=== PATIENT | female | born 1935 | race Caucasian/White ===

== ENCOUNTER → 2017-09-29 | Outpatient (CLI) | payer OTHER, MEDICARE ==
[~2017-09-29] MED LIST: ASCA500 PO; ASPI81TA28 PO; ATOR10TA82 PO; BIOT1TAB6 PO; CHOLTAB9 PO; CYAN500T PO
== END | disposition home or self-care (01) ==
LOC: C.PAPS 14:45
PROVIDERS: ATTEND Obstetrics & Gynecology
DX: Z01.419 Encounter for gynecological examination (general) (routine) without abnormal findings (principal)

== ENCOUNTER → 2017-12-25 | Outpatient (CLI) | payer OTHER, MEDICARE ==
[2017-12-25 13:34] LABS: BASO % 0.4 %; BASO ABS # 0.03 K/uL (0-0.2); EOS % 2.9 %; EOS ABS # 0.23 K/uL (0-0.5); HEMATOCRIT 40.3 % (37-47); HEMOGLOBIN 13.5 g/dL (12.0-16.0); IG# 0.02 K/uL (0.00-0.02); LYMPH % 20.2 %; LYMPH ABS # 1.61 K/uL (1.2-3.4); MEAN CELL VOLUME 91.6 fL (80-100); MEAN CORPUSCULAR HEMOGLOBIN 30.7 pg (25-34); MEAN CORPUSCULAR HGB CONC 33.5 g/dl (32-36); MEAN PLATELET VOLUME 9.8 fL (7.4-10.4); MONO % 8.2 %; MONO ABS # 0.65 K/uL (0.11-0.59); NEUT ABS # 5.43 K/uL (1.4-6.5); PLATELET COUNT 255 K/uL (130-400); RED CELL DISTRIBUTION WIDTH CV 13.4 % (11.5-14.5); WHITE BLOOD COUNT 7.97 K/uL (4.8-10.8)
[2017-12-25 14:08] LABS: ALT/SGPT 25 U/L (12-78); BLOOD UREA NITROGEN 16 mg/dl (7-18); CALCIUM 9.2 mg/dl (8.5-10.1); CARBON DIOXIDE 32 mmol/L (21-32); CREATININE 0.85 mg/dl (0.60-1.20); GLUCOSE 95 mg/dl (70-99); SODIUM 137 mmol/L (136-145)
[2017-12-25 14:10] LABS: ALKALINE PHOSPHATASE 73 U/L (45-117); AST/SGOT 21 U/L (15-37); TOTAL PROTEIN 7.3 gm/dl (6.4-8.2)
[2017-12-29 13:56] LABS: ANA SCREEN TC 249X POSITIVE (NEGATIVE)
[2017-12-29 14:29] LABS: ANA TITER 1:40 TITER (<1:40)
== END | disposition home or self-care (01) ==
LOC: C.LABBC 11:53
PROVIDERS: ATTEND Physician Assistant
DX: G24.8 Other dystonia (principal)

== ENCOUNTER → 2017-12-26 | Outpatient (CLI) | payer OTHER, MEDICARE ==
[~2017-12-26] MED LIST changes: +GADAVIST IV PRN
--- NOTE | 2017-12-26 11:34 | DIAGNOSTIC IMAGING REPORT ---
MRI OF THE BRAIN COMBO CLINICAL HISTORY: Limb dystonia. COMPARISON STUDY: CT of the brain dated 06/16/2015. MRI of the brain dated 06/18/2014. TECHNIQUE: MRI of the brain was performed utilizing various T1 and T2-weighted sequences in the axial, sagittal, and coronal planes. Contrast-enhanced sequences were acquired following the administration of 5.5 cc of Gadavist. FINDINGS: Brain parenchyma: There are age-related involutional changes noting minimal periventricular microangiopathic disease. There is no hemorrhage or mass effect. There is no restricted diffusion to suggest acute ischemia. No enhancing mass lesion is identified on the postcontrast images. Feldman-white matter differentiation is preserved. No extra-axial fluid collection is seen. The cerebellar tonsils are normal in configuration. Ventricles, sulci, and cisterns: Prominent secondary to involutional change. Pituitary and sella: Unremarkable. Intracranial vasculature: Normal flow voids are maintained at the skull base. Orbits: The bony orbits are grossly intact. Orbital contents are normal in appearance. Sinuses and mastoids: Findings suggest previous. Nasal sinus surgery. The paranasal sinuses and mastoid air cells are clear. Calvarium: Unremarkable. Cervical cord: Partially visualized cervical spinal cord is normal in morphology and signal intensity. IMPRESSION: No acute intracranial abnormality. Electronically signed by: Edil Tamez M.D. 12/26/2017 11:33 AM Dictated Date/Time: 12/26/2017 11:19 AM
--- NOTE | 2017-12-26 12:19 | DIAGNOSTIC IMAGING REPORT ---
MRI OF THE CERVICAL SPINE COMBO CLINICAL HISTORY: Limb dystonia. COMPARISON STUDY: Chest CT dated 06/13/2013. TECHNIQUE: MRI of the cervical spine is performed utilizing various T1 and T2-weighted sequences in the axial and sagittal planes. Contrast-enhanced sequences are acquired following the IV administration of 5.5 cc of Gadavist. The examination is compromised by motion artifact. FINDINGS: Cervical spine: Vertebral body height and alignment are maintained throughout the cervical spine. Minimal anterolisthesis is noted at T2-T3. There is straightening of the cervical lordosis. Marrow signal intensity is heterogeneous. The atlantodental articulation is maintained. The spinous processes appear intact. Anterior osteophytes are seen throughout. No destructive osseous lesion is identified. Intervertebral discs: Degenerative disc desiccation is seen throughout the cervical spine. Moderate disc space narrowing is seen at all levels between C3-C4 and C7-T1. Spinal cord: The cervical spinal cord is normal in morphology and signal intensity. No abnormal enhancement is identified on the postcontrast sequences. C2-C3: Unremarkable. C3-C4: A posterior disc osteophyte complex effaces the ventral cord. Uncovertebral and facet arthropathy cause severe right and moderate to severe left neural foraminal stenosis. C4-C5: A posterior disc osteophyte complex abuts the ventral cord. Predominant facet arthropathy causes moderate left neural foraminal stenosis. C5-C6: A posterior disc osteophyte complex eccentric to the right effaces the ventral cord. Uncovertebral and facet arthropathy cause severe right and [id number] left neural foraminal stenosis. The minimum AP canal diameter at this level measures 6 mm. C6-C7: A posterior disc osteophyte complex abuts the ventral cord. Predominantly uncovertebral arthropathy causes mild to moderate right and mild left neural foraminal stenosis. A small nerve sheath cyst on the right measures up to 5 mm. C7-T1: Unremarkable. A small right-sided nerve sheath cyst measures up to 6 mm. Soft tissues: The prevertebral and paraspinous soft tissues are normal in appearance. A 2.2 cm T2 hyperintense nonenhancing nodule is identified in the left thyroid lobe. This was also seen on the [address] Brain parenchyma: The visualized brain parenchyma at the skull base is normal in appearance. IMPRESSION: 1. Multilevel cervical spondylosis as detailed above. See discussion for level by level analysis. 2. The cervical spinal cord is normal in morphology and signal intensity. No abnormal postcontrast enhancement is seen. 3. No destructive bony process is identified. 4. Additional findings as above. Dictated: 12/26/2017 11:45 AM Transcribed: 12/26/2017 12:19 PM [facility] Electronically signed by: Edil Tamez M.D. 12/26/2017 12:31 PM Dictated Date/Time: 12/26/2017 11:45 AM
== END | disposition home or self-care (01) ==
LOC: C.MRIBC 09:51
PROVIDERS: ATTEND Physician Assistant
DX: G24.8 Other dystonia (principal)

== ENCOUNTER 2021-12-11 13:18 | Observation (INO) ==
[2021-12-11 13:50] LABS: Basophils # (auto) 0.04 K/uL (0-0.2); Basophils % (auto) 0.6 %; Eosinophils # (auto) 0.62 K/uL (0-0.5); Eosinophils % (auto) 8.7 %; Hematocrit (blood only) 37.2 % (37-47); Hemoglobin 12.1 g/dL (12.0-16.0); Immature Granulocytes # (auto) 0.02 K/uL (0.00-0.02); Immature Granulocytes % (auto) 0.3 %; Lymphocytes # (auto) 1.79 K/uL (1.2-3.4); Lymphocytes % (auto) 25.2 %; Mean Corpuscular Hemoglobin 30.3 pg (25-34); Mean Corpuscular Hgb Conc 32.5 g/dL (32-36); Mean Platelet Volume 9.9 fL (7.4-10.4); Monocytes # (auto) 0.88 K/uL (0.11-0.59); Monocytes % (auto) 12.4 %; Neutrophils # (auto) 3.76 K/uL (1.4-6.5); Neutrophils % (auto) 52.8 %; Platelet Count 232 K/uL (130-400); RDW Coefficient of Variation 13.7 % (11.5-14.5); RDW Standard Deviation 46.9 fL (36.4-46.3); White Blood Count 7.11 K/uL (4.8-10.8)
[2021-12-11 14:11] LABS: Troponin I < 0.03 ng/ml (0-0.04)
[2021-12-11 14:28] LABS: Alanine Aminotransferase 12 U/L (7-52); Albumin Globulin Ratio 1.7 (0.9-2); Alkaline Phosphatase 49 U/L (34-104); Anion Gap 6 (3-11); Aspartate Aminotransferase 19 U/L (13-39); BUN Creatinine Ratio 17.2 (10-20); Bilirubin,Total 0.7 mg/dl (0.2-1.0); Blood Urea Nitrogen 17 mg/dl (6-23); Calcium 9.3 mg/dl (8.5-10.1); Carbon Dioxide 28 mmol/L (21-32); Chloride 103 mmol/L (98-107); Creatinine Clr Calc Pharmacy 32.5 ml/min; Est GFR (Non-African American) 50.9 ml/min; Globulin 2.4 gm/dl (2.5-4.0); Glucose 69 mg/dl (70-99(Fasting)); Lipase 30 U/L (11-82); Sodium 137 mmol/L (136-145); Total Protein 6.4 gm/dl (6.0-8.3)
--- NOTE | 2021-12-11 15:24 | XRay Report ---
XR chest 1V portable CLINICAL HISTORY: Atypical chest pain TECHNIQUE: Single frontal radiograph of the chest was obtained. Comparison: Comparison is made to chest one view 07/03/2020 FINDINGS: No lines and tubes are seen. The cardiomediastinal silhouette is normal. The lungs are clear. Bluntin g of the left costophrenic angle which may reflect small pleural effusion. IMPRESSION: Left trace effusion. ACT 112: Negative or not required by law. Electronically signed by: Onur Watson M.D. 12/11/2021 3:22 PM
--- NOTE | 2021-12-11 16:11 | Emergency Department Note ---
Impression & Plan Precordial chest pain, Left arm pain, Exertional chest pain ED Provider Note NAME: ASHLEY RAMIREZ AGE: 86 SEX: F : 1935 ARRIVES VIA: Walk-In INFORMANT: [Patient] ED PROVIDER(S): [Edil Montano MD] CHIEF COMPLAINT: Cardiac assessment HISTORY OF PRESENT ILLNESS: The patient is an 86-year-old female presents to the ED with around 6 hours of some chest and arm pain. She has been under some increased stress and doing more activity. She was up walking around and working when she developed the pain. The pain was pressure-like across the chest and moderate in severity. She noted the pain in her left arm and forearm as well. She was nauseated, no sweating, no shortness of breath. Things seemed to get better eventually with rest. She currently is asymptomatic. The patient has had CVAs, she has hypertension. She has never had a diagnosis of coronary disease. Of note, the patient ran out of her Losartan 4 days ago, she has missed this medication for 4 days. The patient is here with her daughter. She feels that she may just be anxious. 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 REVIEW OF SYSTEMS: See HPI for pertinent positives and negatives. A total of ten systems were reviewed and were otherwise negative. PMHx/PSHx: See Below SOCIAL HISTORY: See Below. PHYSICAL EXAM: GENERAL: Patient is in no acute distress. HEENT: No acute trauma, normocephalic atraumatic, mucous membranes moist, no nasal congestion, no scleral icterus. NECK: No stridor, no adenopathy, no meningismus, trachea is midline. LUNGS: Clear to auscultation bilaterally, no wheeze, no rhonchi, breath sounds equal. HEART: Without murmurs gallops or rubs, regular rate and rhythm. ABDOMEN: Soft, nontender, bowel sounds positive, no hernias, no peritonitis. EXTREMITIES: No cyanosis or edema, full range of motion of all the joints without pain or difficulty, no signs for acute trauma. NEUROLOGIC: Oriented x 3, no acute motor or sensory deficits, no focal weakness. SKIN: No rash, no jaundice, no diaphoresis. DIFFERENTIAL DIAGNOSIS: Cardiac ischemia, aortic dissection, pulmonary embolism, pneumothorax, pneumonia, pericarditis, myocarditis, esophageal rupture, GERD, cholecystitis, pancreatitis, musculoskeletal, as well as other pathologies. EMERGENCY DEPARTMENT COURSE/PROCEDURES: ECG: Indication was chest pain. ECG shows a normal sinus rhythm with a potential old anterior infarct. There is no ST elevation, no PVCs. The QTc is 454. Continuous Cardiac Monitoring: An order was placed for continuous cardiac monitoring. The monitor shows a rate of 67 with normal sinus rhythm. MEDICAL DECISION MAKING: There is no leukocytosis or worrisome anemia. There is a normal platelet count. No significant electrolyte abnormality or kidney failure. No concerning liver enzyme elevation. No evidence for pancreatitis. ECG shows a normal sinus rhythm, no ST elevation. Cardiac enzyme testing x1 is not consistent with acute cardiac injury. Chest x-ray does not show mediastinal widening, pneumonia or pneumothorax. Covid testing returned negative. Patient presents with exertional chest pain. Her pain is no longer present since resting. The patient was given 4 baby aspirin orally, I did speak with her about her findings, I spoke with case management. I did speak with on-call cardiology, Dr. Blanco. The patient is being hospitalized for further cardiac work-up. The on-call hospitalist was consulted. Past Med/Surg History Medical History Asthma Factor V Leiden, prothrombin gene mutation High blood pressure Hyperlipidemia TIA (transient ischemic attack) Surgical History Hx of cholecystectomy S/P appy S/P cataract extraction S/P spinal surgery Family History Brother Lung cancer Father Lung cancer Sister Pancreatic cancer Social History Smoking Status: Never smoker Hx Alcohol Use: Yes Alcohol type: wine Alcohol Intake Frequency: Monthly or Less Hx Substance Use: No Preferred Language: Azerbaijani Feels Safe at Home: Yes Allergies Allergies Allergy/AdvReac Type Severity Reaction Status Date / Time morphine Allergy Severe STOPS Verified 12/11/21 16:42 BREATHING moxifloxacin Allergy Intermediate CONFUSION/NIGHT Verified 12/11/21 16:42 CRANE bacitracin Allergy Mild Rash Verified 12/11/21 16:42 polymyxin B Allergy Mild Rash Verified 12/11/21 16:42 tramadol Allergy Unknown CAN'T Verified 12/11/21 16:42 REMEMBER fluorouracil AdvReac Intermediate didn't Verified 12/11/21 16:42 feel good CHIRAG CREAM AdvReac Severe WENT Uncoded 12/11/21 16:42 BALISTIC Home Meds Home Medications Medication Instructions Recorded Confirmed ascorbic acid (vitamin C) 500 mg 500 mg PO DAILY 10/08/18 12/11/21 tablet (Vitamin C) atorvastatin 10 mg tablet 10 mg PO DAILY 10/08/18 12/11/21 biotin 5 mg tablet 2.5 mg PO DAILY 10/08/18 12/11/21 cholecalciferol (vitamin D3) 25 1,000 mg PO DAILY 10/08/18 12/11/21 mcg (1,000 unit) tablet (Vitamin D3) cyanocobalamin (vitamin B-12) 500 500 mcg PO DAILY 10/08/18 12/11/21 mcg tablet (Vitamin B-12) losartan 50 mg-hydrochlorothiazide 0.5 tab PO DAILY 10/08/18 12/11/21 12.5 mg tablet atenolol 25 mg tablet 12.5 mg PO DAILY 07/03/20 12/11/21 aspirin 81 mg tablet,delayed 81 mg PO DAILY 12/11/21 12/11/21 release conjugated estrogens 0.625 mg/gram 0.625 mg VAGINAL DIRECTED 12/11/21 12/11/21 vaginal cream (Premarin) diclofenac sodium 1 % topical gel 2 g TOPICAL DIRECTED PRN 12/11/21 12/11/21 triamcinolone acetonide 0.1 % 1 applic TOPICAL DIRECTED PRN 12/11/21 12/11/21 topical ointment Results & Data (ED) Vital Signs Vital Signs - 24 hr 12/11/21 13:19 12/11/21 18:19 Temperature 36.4 C L Temperature Source Temporal Artery Scan Pulse Rate 67 56 L Pulse Rate [Apical] 54 L Respiratory Rate 18 16 Blood Pressure 162/80 H Blood Pressure [Right Arm] 148/85 H Blood Pressure Mean 107 Blood Pressure Mean [Right Arm] 106 Pulse Oximetry 98 98 Oxygen Delivery Method Room Air Sepsis Recent Fever Within 48 Hours No Sepsis New/Unexplained Change in Mental Status No Sepsis Action Taken by Nursing No Action Required Home Medications Current Medication List: was personally reviewed by me Laboratory Data Attestation: I reviewed the patient's lab results. Result diagrams: 12/11/21 13:34 12/11/21 13:34 Lab Results 12/11/21 12/11/21 12/11/21 Range/Units 13:34 13:34 16:52 WBC 7.11 (4.8-10.8) K/uL RBC 4.00 L (4.2-5.4) M/uL Hgb 12.1 (12.0-16.0) g/dL Hct 37.2 (37-47) % MCV 93.0 (80-100) fL MCH 30.3 (25-34) pg MCHC 32.5 (32-36) g/dL RDW Std Deviation 46.9 H (36.4-46.3) fL RDW Coeff of [place] 13.7 (11.5-14.5) % Plt Count 232 (130-400) K/uL MPV 9.9 (7.4-10.4) fL Immature Gran % (Auto) 0.3 % Neut % (Auto) 52.8 % Lymph % (Auto) 25.2 % [place] % (Auto) 12.4 % Eos % (Auto) 8.7 % Baso % (Auto) 0.6 % Neut # (Auto) 3.76 (1.4-6.5) K/uL Lymph # (Auto) 1.79 (1.2-3.4) K/uL [place] # (Auto) 0.88 H (0.11-0.59) K/uL Eos # (Auto) 0.62 H (0-0.5) K/uL Baso # (Auto) 0.04 (0-0.2) K/uL Immature Gran # (Auto) 0.02 (0.00-0.02) K/uL Sodium 137 (136-145) mmol/L Potassium 4.0 (3.5-5.1) mmol/L Chloride 103 (98-107) mmol/L Carbon Dioxide 28 (21-32) mmol/L Anion Gap 6 (3-11) BUN 17 (6-23) mg/dl Creatinine 0.99 (0.6-1.2) mg/dl Est Cr Clr Drug Dosing 32.5 ml/min Est GFR ( Amer) 59.0 ml/min Est GFR (Non-Af Amer) 50.9 ml/min BUN/Creatinine Ratio 17.2 (10-20) Glucose 69 L (70-99(Fasting)) mg/dl Calcium 9.3 (8.5-10.1) mg/dl Total Bilirubin 0.7 (0.2-1.0) mg/dl AST 19 (13-39) U/L ALT 12 (7-52) U/L Alkaline Phosphatase 49 (34-104) U/L Troponin I < 0.03 (0-0.04) ng/ml Total Protein 6.4 (6.0-8.3) gm/dl Albumin 4.0 (3.4-5.0) gm/dl Globulin 2.4 L (2.5-4.0) gm/dl Albumin/Globulin Ratio 1.7 (0.9-2) Lipase 30 (11-82) U/L SARS-CoV-2, RNA, NAAT NEGATIVE (NEGATIVE) Administered Medications Discontinued Medications Aspirin (Aspirin Chew 324 Mg) 324 mg PO NOW STA Stop: 12/11/21 16:21 Last Admin: 12/11/21 17:48 Dose: 324 mg Documented by: [id number] Imaging Data Radiologist's Impression: Chest X-Ray 12/11/21 13:31 XR chest 1V portable CLINICAL HISTORY: Atypical chest pain TECHNIQUE: Single frontal radiograph of the chest was obtained. Comparison: Comparison is made to chest one view 07/03/2020 FINDINGS: No lines and tubes are seen. The cardiomediastinal silhouette is normal. The lungs are clear. Blunting of the left costophrenic angle which may reflect small pleural effusion. IMPRESSION: Left trace effusion. ACT 112: Negative or not required by law. Electronically signed by: Onur Watson M.D. 12/11/2021 3:22 PM Discharge Plan Visit Data Chief Complaint: Cardiac Assessment Stated Complaint: L SIDED CHEST PAIN, ARM PAIN ED Provider: Edil Montano Discharge Problem: Precordial chest pain, Left arm pain, Exertional chest pain Patient Disposition: Admitted As Inpatient Condition: Good Forms Stand Alone Forms: My [facility] [employer] Prescriptions Prescriptions: No Action atorvastatin 10 mg tablet 10 mg PO DAILY RF: 0 cyanocobalamin (vitamin B-12) [Vitamin B-12] 500 mcg Tablet 500 mcg PO DAILY RF: 0 ascorbic acid (vitamin C) [Vitamin C] 500 mg Tablet 500 mg PO DAILY RF: 0 losartan-hydrochlorothiazide 50-12.5 mg tablet 0.5 tab PO DAILY RF: 0 cholecalciferol (vitamin D3) [Vitamin D3] 1,000 unit Tablet 1,000 mg PO DAILY RF: 0 biotin 5 mg Tablet 2.5 mg PO DAILY RF: 0 atenolol 25 mg Tablet 12.5 mg PO DAILY RF: 0 aspirin 81 mg Tablet,Delayed Release (Dr/Ec) 81 mg PO DAILY RF: 0 Premarin 0.625 mg/gram cream 0.625 mg vaginal DIRECTED RF: 0 triamcinolone acetonide 0.1 % ointment 1 applic TOPICAL DIRECTED PRN (Reason: Skin Irritation) RF: 0 diclofenac sodium [Voltaren] 1 % Gel 2 g TOPICAL DIRECTED PRN (Reason: Pain) RF: 0 Referrals Referrals: Gucci Benjamin MD [Primary Care Provider] -
--- NOTE | 2021-12-11 16:14 | Electrocardiogram Report ---
Test Reason : Blood Pressure : / mmHG Vent. Rate : 071 BPM Atrial Rate : 071 BPM P-R Int : 162 ms QRS Dur : 084 ms QT Int : 418 ms P-R-T Axes : 060 011 033 degrees QTc Int : 454 ms Poor data quality, interpretation may be adversely affected Normal sinus rhythm When compared with ECG of 03-JUL-2020 12:30, No significant change was found Confirmed by Landen Partida ([id number]) on 12/11/2021 4:13:59 PM Referred By: Confirmed By:Saúl Partida
[2021-12-11] MEDS ORDERED: ASPIRIN CHEW 324 MG PO STA (16:20)
--- NOTE | 2021-12-11 16:46 | History & Physical Report ---
Date of Service December 11, 2021 Assessment & Plan (1) Atypical chest pain: Plan: Elderly female with no h/o CAD. CAD risk factors include age, HTN and hyperlipidemia. Min to no pain currently. Trop is negative and EKG nonischemic. Trend trop overnight. Cardiology consult. Trend EKG in am. (2) High blood pressure: Plan: Missed morning dose of antihypertensive. Giving this now and cont home regimen. (3) Hyperlipidemia: Plan: chronic, cont atorvastatin per home regimen. Lipid panel in am. (4) Factor V Leiden, prothrombin gene mutation: Plan: No h/o blood clot. Takes ASA 81mg daily. (5) DVT prophylaxis: Plan: Heparin Full Dispo-to telemetry. Arabella Jordan DO [facility] Hospitalist History of Present Illness Chief Complaint: chest pain Primary Care Provider: Gucci Benjamin MD The patient is an 86-year-old female who presents to the ER with chest pain in her left anterior chest radiating to her arm associated with shortness of breath. She was up and walking around when she developed the pain this morning. She described that it felt like a lightening bolt. 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 This is a very stressful transaction and she is reporting being under a lot of stress. She reports never getting pain in her chest and has no history of cardiac disease. She does have a history of TIA in the past and hyperlipidemia. She is a lifelong non-smoker. After resting in the ER her chest pain resolved and is currently "somewhat still there." Daughter reports mom just did not look well this morning prompting ER visit. Allergies Allergy/AdvReac Type Severity Reaction Status Date / Time morphine Allergy Severe STOPS Verified 12/11/21 16:42 BREATHING moxifloxacin Allergy Intermediate CONFUSION/NIGHT Verified 12/11/21 16:42 CRANE bacitracin Allergy Mild Rash Verified 12/11/21 16:42 polymyxin B Allergy Mild Rash Verified 12/11/21 16:42 tramadol Allergy Unknown CAN'T Verified 12/11/21 16:42 REMEMBER fluorouracil AdvReac Intermediate didn't Verified 12/11/21 16:42 feel good CHIRAG CREAM AdvReac Severe WENT Uncoded 12/11/21 16:42 BALISTIC Home Medications Medication Instructions Recorded Confirmed Type ascorbic acid (vitamin C) 500 mg 500 mg PO DAILY 10/08/18 12/11/21 History tablet (Vitamin C) atorvastatin 10 mg tablet 10 mg PO DAILY 10/08/18 12/11/21 History biotin 5 mg tablet 2.5 mg PO DAILY 10/08/18 12/11/21 History cholecalciferol (vitamin D3) 25 1,000 mg PO DAILY 10/08/18 12/11/21 History mcg (1,000 unit) tablet (Vitamin D3) cyanocobalamin (vitamin B-12) 500 500 mcg PO DAILY 10/08/18 12/11/21 History mcg tablet (Vitamin B-12) losartan 50 mg-hydrochlorothiazide 0.5 tab PO DAILY 10/08/18 12/11/21 History 12.5 mg tablet atenolol 25 mg tablet 12.5 mg PO DAILY 07/03/20 12/11/21 History aspirin 81 mg tablet,delayed 81 mg PO DAILY 12/11/21 12/11/21 History release conjugated estrogens 0.625 mg/gram 0.625 mg VAGINAL DIRECTED 12/11/21 12/11/21 History vaginal cream (Premarin) diclofenac sodium 1 % topical gel 2 g TOPICAL DIRECTED PRN 12/11/21 12/11/21 History triamcinolone acetonide 0.1 % 1 applic TOPICAL DIRECTED PRN 12/11/21 12/11/21 History topical ointment Past Med/Surg History Medical History (Updated 12/11/21 @ 17:55 by Arabella Jordan DO) Asthma Factor V Leiden, prothrombin gene mutation High blood pressure Hyperlipidemia TIA (transient ischemic attack) Surgical History Hx of cholecystectomy S/P appy S/P cataract extraction S/P spinal surgery Family History Brother Lung cancer Father Lung cancer Sister Pancreatic cancer Social History Smoking Status: Never smoker Hx Alcohol Use: Yes Alcohol type: wine Alcohol Intake Frequency: Monthly or Less Hx Substance Use: No Preferred Language: Divehi Feels Safe at Home: Yes Review of Systems Review of Systems: All systems were reviewed and negative except as indicated above. Physical Exam Physical Exam: CONSTITUTIONAL: WNWD, vitals as above, generally well- appearing EYES: normal conjunctivae, no scleral icterus ENT: external ear and nose normal, MMM NECK: trachea midline RESPIRATORY: clear to auscultation bilaterally, no crackles, rales or wheezes, normal respiratory effort CARDIOVASCULAR: regular rate and rhythm, S1 and 2 heard without murmurs, gallops or rubs, no JVD, no peripheral edema CHEST: inspection of chest was normal GASTROINTESTINAL: soft, nontender, ND MUSCULOSKELETAL: strength 5/5 throughout, head is normocephalic and atraumatic SKIN: warm and dry NEUROLOGIC: CN 2-12 grossly intact, no sensory deficit, normal cognition, normal speech, no tremor, no gross focal deficits. PSYCHIATRIC: alert cooperative and oriented to person, place and time. Results & Data Results & Data ([facility]) Vital Signs (Past 12 Hours) Vital Signs Temp Pulse Resp BP Pulse Ox 12/11/21 13:19 36.4 C L 67 18 162/80 H 98 Laboratory Results Short CBC 12/11/21 Range/Units 13:34 WBC 7.11 (4.8-10.8) K/uL Hgb 12.1 (12.0-16.0) g/dL Hct 37.2 (37-47) % Plt Count 232 (130-400) K/uL BMP 12/11/21 13:34 Sodium 137 Potassium 4.0 Chloride 103 Carbon Dioxide 28 BUN 17 Creatinine 0.99 Glucose 69 L Calcium 9.3 Cardiac Enzymes 12/11/21 Range/Units 13:34 Troponin I < 0.03 (0-0.04) ng/ml Liver Function 12/11/21 Range/Units 13:34 Total Bilirubin 0.7 (0.2-1.0) mg/dl AST 19 (13-39) U/L ALT 12 (7-52) U/L Alkaline Phosphatase 49 (34-104) U/L Albumin 4.0 (3.4-5.0) gm/dl Diagnostic Findings Chest X-Ray 12/11/21 13:31 XR chest 1V portable CLINICAL HISTORY: Atypical chest pain TECHNIQUE: Single frontal radiograph of the chest was obtained. Comparison: Comparison is made to chest one view 07/03/2020 FINDINGS: No lines and tubes are seen. The cardiomediastinal silhouette is normal. The lungs are clear. Blunting of the left costophrenic angle which may reflect small pleural effusion. IMPRESSION: Left trace effusion. ACT 112: Negative or not required by law. Electronically signed by: Onur Watson M.D. 12/11/2021 3:22 PM Medications Administered ASA 324mg Code Status & VTE Plan VTE Prophylaxis Plan VTE Prophylaxis will be ordered: Yes
[2021-12-11] MEDS ORDERED: ACETAMINOPHEN 325 MG TAB PO PRN (21:29)
[2021-12-11] MEDS ORDERED: POLYETHYLENE (MIRALAX) 17 GM PACK PO PRN (21:29)
[2021-12-11] MEDS ORDERED: NITROGLYCERIN SL 0.4 MG/TAB TAB SL PRN (21:29)
[2021-12-11] MEDS: LOSARTAN/HCTZ 50/12.5MG TAB PO SCH (22:11)
[2021-12-11] MEDS: HEPARIN SOD 5,000 UNIT/0.5 ML VIAL SQ SCH (22:11)
[2021-12-12 06:41] LABS: Basophils # (auto) 0.04 K/uL (0-0.2); Basophils % (auto) 0.8 %; Eosinophils # (auto) 0.63 K/uL (0-0.5); Eosinophils % (auto) 12.9 %; Hematocrit (blood only) 37.3 % (37-47); Hemoglobin 12.5 g/dL (12.0-16.0); Lymphocytes % (auto) 32.7 %; Mean Corpuscular Hemoglobin 30.9 pg (25-34); Mean Corpuscular Hgb Conc 33.5 g/dL (32-36); Mean Corpuscular Volume 92.1 fL (80-100); Mean Platelet Volume 9.7 fL (7.4-10.4); Monocytes # (auto) 0.56 K/uL (0.11-0.59); Monocytes % (auto) 11.4 %; Neutrophils # (auto) 2.07 K/uL (1.4-6.5); Neutrophils % (auto) 42.2 %; Platelet Count 223 K/uL (130-400); RDW Coefficient of Variation 13.6 % (11.5-14.5); Red Blood Count 4.05 M/uL (4.2-5.4)
[2021-12-12 07:06] LABS: Troponin I < 0.03 ng/ml (0-0.04)
[2021-12-12 07:13] LABS: Anion Gap 6 (3-11); BUN Creatinine Ratio 17.4 (10-20); Blood Urea Nitrogen 15 mg/dl (6-23); Carbon Dioxide 27 mmol/L (21-32); Chloride 105 mmol/L (98-107); Chol HDL Ratio 2.3 (0-5); Cholesterol 162 mg/dl (0-200); Creatinine Clr Calc Pharmacy 37.4 ml/min; Est GFR (African American) 69.9 ml/min; Est GFR (Non-African American) 60.3 ml/min; Glucose 94 mg/dl (70-99(Fasting)); HDL Cholesterol 72 mg/dl; LDL Cholesterol Calculated 74 mg/dl; Potassium 3.8 mmol/L (3.5-5.1); Sodium 138 mmol/L (136-145); Triglycerides 79 mg/dl (0-150); VLDL Cholesterol 16 mg/dl (0-30)
[2021-12-12] MEDS: HEPARIN SOD 5,000 UNIT/0.5 ML VIAL SQ SCH (07:21)
[2021-12-12] MEDS: LOSARTAN/HCTZ 50/12.5MG TAB PO SCH (07:21)
[2021-12-12] MEDS ORDERED: CYANOCOBALAMIN (B-12) 500 MCG TABLET PO SCH (09:00)
[2021-12-12] MEDS ORDERED: ATORVASTATIN 10 MG TAB PO SCH (09:00)
[2021-12-12] MEDS ORDERED: ASPIRIN 81 MG ECTAB PO SCH (09:00)
[2021-12-12] MEDS ORDERED: ASCORBIC ACID 500 MG TAB PO SCH (09:00)
[2021-12-12] MEDS ORDERED: CHOLECALCIFEROL 1,000 UNITS 25 MCG TAB PO SCH (09:00)
[2021-12-12] MEDS ORDERED: ATENOLOL 25 MG TABLET PO SCH (09:00)
[2021-12-12 09:59] LABS: D Dimer 800 ug/L FEU (0-500)
[2021-12-12] MEDS ORDERED: OPTIRAY 320 125ml IV ONE (12:13)
--- NOTE | 2021-12-12 13:36 | Electrocardiogram Report ---
Test Reason : Blood Pressure : / mmHG Vent. Rate : 057 BPM Atrial Rate : 057 BPM P-R Int : 182 ms QRS Dur : 092 ms QT Int : 436 ms P-R-T Axes : 063 003 042 degrees QTc Int : 424 ms Sinus bradycardia Otherwise normal ECG When compared with ECG of 11-DEC-2021 13:27, T wave inversion no longer evident in Anterior leads Confirmed by Landen Partida ([id number]) on 12/12/2021 1:35:52 PM Referred By: REFERRED SELF Confirmed By:Saúl Partida
--- NOTE | 2021-12-12 13:55 | CT Scan Report ---
CT angio chest PE protocol CLINICAL HISTORY: Dyspnea, chest pain TECHNIQUE: Multidetector row helical CT of the chest was performed with angiographic protocol. Bunn l and sagittal reformations were obtained. Coronal and sagittal MIPS were obtained from the axial christel a set and were submitted for review. Automated dose lowering techniques and/or adjustment according to patient size were utilized for this exam. Comparison: Comparison is made to CT chest 10/09/2018 FINDINGS: Lungs and pleura: Biapical scarring is noted. Heart and pericardium: Cardiomegaly is seen with biatrial enlargement. Vessels: No evidence of pulmonary embolism. Mediastinum and blake: Unremarkable. Chest wall and lower neck: Unremarkable. Abdomen: Unremarkable. Bones: Unremarkable there is a sclerotic lesion in the posterior aspect of the T1 arch, unchanged fro m prior exam. Anterior wedge deformity of thoracic spine is unchanged. IMPRESSION: No evidence of pulmonary embolism. ACT 112: Negative or not required by law. Electronically signed by: Onur Watson M.D. 12/12/2021 1:53 PM
--- NOTE | 2021-12-12 14:27 | Cardiology Consultation ---
Date of Consultation December 12, 2021 Assessment & Plan (1) Precordial chest pain: Work up negative and reassuring. Pt feels improved. Symptoms correlate with understandable emotional stressors. Recommend ongoing medical management with ASA, atorvastatin (LDL 74 mg/d), losartan, HCTZ. Plan to add PRN SL nitroglycerin at discharge. Pt counseled to return if she has recurrent symptoms. I called and discussed with pt's daughter, Dana, by phone. History of Present Illness Attending Physician: Li Padna MD History of Present Illness Mrs Arce is an 86 year old female seen in cardiology consultation per the request of Dr Jordan for the evaluation of chest pain. Patient presented via the emergency department yesterday with chest discomfort and generalized illness. 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 She describes having had left-sided chest discomfort at rest that came on with emotional stressors yesterday. EKG without acute changes on a serial basis, and her troponin has been undetectable x3. Echocardiogram reveals normal biventricular wall motion. Her D-dimer had been elevated, but CT angiogram reveals no pulmonary embolism. At present, the patient is feeling well, enjoying a late lunch. She feels much improved. She notes no recent symptoms suggestive angina prior to yesterday. Past medical history is notable for a remote stroke that was attributed to oral contraceptives many years ago, and several TIA events. She is treated for hypertension and dyslipidemia. She has missed several doses of her losartan/HCTZ, as apparently she ran out of it and had had a refill, but her daughter tells me that the refill has been obtained and the medication is available for her at home. Allergies Allergy/AdvReac Type Severity Reaction Status Date / Time morphine Allergy Severe STOPS Verified 12/11/21 16:42 BREATHING moxifloxacin Allergy Intermediate CONFUSION/NIGHT Verified 12/11/21 16:42 CRANE bacitracin Allergy Mild Rash Verified 12/11/21 16:42 polymyxin B Allergy Mild Rash Verified 12/11/21 16:42 tramadol Allergy Unknown CAN'T Verified 12/11/21 16:42 REMEMBER fluorouracil AdvReac Intermediate didn't Verified 12/11/21 16:42 feel good CHIRAG CREAM AdvReac Severe WENT Uncoded 12/11/21 16:42 BALISTIC Home Medications Medication Instructions Recorded Confirmed Type ascorbic acid (vitamin C) 500 mg 500 mg PO DAILY 10/08/18 12/11/21 History tablet (Vitamin C) atorvastatin 10 mg tablet 10 mg PO DAILY 10/08/18 12/11/21 History biotin 5 mg tablet 2.5 mg PO DAILY 10/08/18 12/11/21 History cholecalciferol (vitamin D3) 25 1,000 mg PO DAILY 10/08/18 12/11/21 History mcg (1,000 unit) tablet (Vitamin D3) cyanocobalamin (vitamin B-12) 500 500 mcg PO DAILY 10/08/18 12/11/21 History mcg tablet (Vitamin B-12) losartan 50 mg-hydrochlorothiazide 0.5 tab PO DAILY 10/08/18 12/11/21 History 12.5 mg tablet atenolol 25 mg tablet 12.5 mg PO DAILY 07/03/20 12/11/21 History aspirin 81 mg tablet,delayed 81 mg PO DAILY 12/11/21 12/11/21 History release conjugated estrogens 0.625 mg/gram 0.625 mg VAGINAL DIRECTED 12/11/21 12/11/21 History vaginal cream (Premarin) diclofenac sodium 1 % topical gel 2 g TOPICAL DIRECTED PRN 12/11/21 12/11/21 History triamcinolone acetonide 0.1 % 1 applic TOPICAL DIRECTED PRN 12/11/21 12/11/21 History topical ointment Patient History Medical History Asthma Factor V Leiden, prothrombin gene mutation High blood pressure Hyperlipidemia TIA (transient ischemic attack) Surgical History Hx of cholecystectomy S/P appy S/P cataract extraction S/P spinal surgery Family History Brother Lung cancer Father Lung cancer Sister Pancreatic cancer Social History Smoking Status: Never smoker Second Hand Exposure: No; Do You Dip or Chew Tobacco: No; Hx Alcohol Use: Yes Alcohol type: wine Alcohol Intake Frequency: Monthly or Less Hx Substance Use: No Preferred Language: Maltese Jigman Required: No Beliefs That Will Affect Care: None Current Living Situation: Spouse Other Information That Helps Us Care for You: No Feels Safe at Home: Yes Safety Concerns: Feels Safe At This Time Assistive Devices: Glasses Review of Systems Review of Systems: All systems reviewed & are unremarkable except as noted in HPI & below Physical Exam Physical Exam: Temp Pulse Resp BP Pulse Ox 36.9 C 51 L 18 131/77 95 12/12/21 11:21 12/12/21 11:21 12/12/21 11:21 12/12/21 11:21 12/12/21 11:21 Constitutional: WD/WN, vitals as above Respiratory: normal respiratory effort, lungs clear to auscultation Cardiovascular: RRR, no murmur, no edema Gastrointestinal (Abdomen): normal bowel sounds, soft, nontender, no hepatosplenomegaly Results & Data ([facility]) Vital Signs (Past 12 Hours) Vital Signs Temp Pulse Pulse Resp BP Pulse Ox 12/12/21 11:21 36.9 C 51 L 18 131/77 95 12/12/21 07:09 64 12/12/21 06:49 36.6 C 60 18 146/73 H 94 12/12/21 04:09 36.8 C 62 18 128/70 93 Laboratory Results Cardiac Enzymes 12/11/21 12/11/21 12/12/21 Range/Units 13:34 21:33 06:22 AST 19 (13-39) U/L Troponin I < 0.03 < 0.03 (0-0.04) ng/ml Lipids 12/12/21 Range/Units 06:22 Triglycerides 79 (0-150) mg/dl Cholesterol 162 (0-200) mg/dl HDL Cholesterol 72 mg/dl Cholesterol/HDL Ratio 2.3 (0-5) CBC 12/12/21 Range/Units 06:22 WBC 4.90 (4.8-10.8) K/uL RBC 4.05 L (4.2-5.4) M/uL Hgb 12.5 (12.0-16.0) g/dL Hct 37.3 (37-47) % Plt Count 223 (130-400) K/uL Neut # (Auto) 2.07 (1.4-6.5) K/uL Lymph # (Auto) 1.60 (1.2-3.4) K/uL [place] # (Auto) 0.56 (0.11-0.59) K/uL Eos # (Auto) 0.63 H (0-0.5) K/uL Baso # (Auto) 0.04 (0-0.2) K/uL Comprehensive Metabolic Panel 12/11/21 12/12/21 Range/Units 13:34 06:22 Sodium 137 138 (136-145) mmol/L Potassium 4.0 3.8 (3.5-5.1) mmol/L Chloride 103 105 (98-107) mmol/L Carbon Dioxide 28 27 (21-32) mmol/L BUN 17 15 (6-23) mg/dl Creatinine 0.99 0.86 (0.6-1.2) mg/dl Glucose 69 L 94 (70-99(Fasting)) mg/dl Calcium 9.3 9.0 (8.5-10.1) mg/dl AST 19 (13-39) U/L ALT 12 (7-52) U/L Alkaline Phosphatase 49 (34-104) U/L Total Protein 6.4 (6.0-8.3) gm/dl Albumin 4.0 (3.4-5.0) gm/dl
--- NOTE | 2021-12-12 14:49 | Discharge Summary ---
Date of Service December 12, 2021 Admission HPI Per Admitting Provider The patient is an 86-year-old female who presents to the ER with chest pain in her left anterior chest radiating to her arm associated with shortness of breath. She was up and walking around when she developed the pain this morning. She described that it felt like a lightening bolt. 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 This is a very stressful transaction and she is reporting being under a lot of stress. She reports never getting pain in her chest and has no history of cardiac disease. She does have a history of TIA in the past and hyperlipidemia. She is a lifelong non-smoker. After resting in the ER her chest pain resolved and is currently "somewhat still there." Daughter reports mom just did not look well this morning prompting ER visit. Principal Diagnosis Chest pain, ruled out for ACS, PE Discharge Exam Appears well, somewhat forgetful, appears younger than stated age Breathing comfortably on room air, no wheezing/rhonchi/rales Regular rate and rhythm, no murmurs/rubs/gallops No lower extremity edema Discharge Data Allergies Allergy/AdvReac Type Severity Reaction Status Date / Time morphine Allergy Severe STOPS Verified 12/11/21 16:42 BREATHING moxifloxacin Allergy Intermediate CONFUSION/NIGHT Verified 12/11/21 16:42 CRANE bacitracin Allergy Mild Rash Verified 12/11/21 16:42 polymyxin B Allergy Mild Rash Verified 12/11/21 16:42 tramadol Allergy Unknown CAN'T Verified 12/11/21 16:42 REMEMBER fluorouracil AdvReac Intermediate didn't Verified 12/11/21 16:42 feel good CHIRAG CREAM AdvReac Severe WENT Uncoded 12/11/21 16:42 BALISTIC Consultations 12/11/21 16:34 ED Decision to Admit Stat 12/11/21 21:29 Consult Cardiology Routine Ordered Studies 12/12/21 10:13 CT angio chest PE protocol Routine Hospital Course (1) Atypical chest pain: Ruled out for ACS with serial negative troponin, TTE with no wall motion abnormalities D dimer elevated but follow up CTA chest negative for Pulmonary Emboli Evaluated by Cardiology and will follow up with Dr Blanco in 2-4 weeks. She was discharged on SL Nitro PRN for chest pain (2) High blood pressure: Recently ran out of home medications but it has since been refilled BP normal while on home medication here (3) Hyperlipidemia: chronic, cont atorvastatin per home regimen. Lipid panel in am. (4) Factor V Leiden, prothrombin gene mutation: Takes ASA 81mg daily. (5) DVT prophylaxis: Total Time Total Time Spent Total Time Spent (In Minutes): 35 Discharge Plan Discharge Items Patient Disposition: Home - Self-Care Reason For Visit: CHEST PAIN Discharge Diagnosis: Chest pain Condition on Discharge: Good Activity: Resume your previous activity Non-emergency contact: Primary Care Provider and Specialist Call non-emergency contact if: you have any medication questions and your symptoms worsen Follow-up/Referrals: Gucci Benjamin MD [Primary Care Provider] - (Date & Time 12/17/2021 3:20 PM Provider Gucci Benjamin MD Department [facility] ) Diet: Heart Healthy Addtl Attending Provider Instructions: Please follow up with Dr Terell Blanco (Cardiology) within 2-4 weeks of discharge Please follow up with your PCP within 1 week of discharge Pending Studies at Discharge: No Stand-Alone Forms: My [employer], Smoking Cessation Medications and DC Order Prescriptions: New nitroglycerin [Nitrostat] 0.4 mg Tablet, Sublingual 0.4 mg sublingual Q5M PRN (Reason: chest pain) 30 Days Qty: 60 RF: 0 Continued atorvastatin 10 mg tablet 10 mg PO DAILY RF: 0 cyanocobalamin (vitamin B-12) [Vitamin B-12] 500 mcg Tablet 500 mcg PO DAILY RF: 0 ascorbic acid (vitamin C) [Vitamin C] 500 mg Tablet 500 mg PO DAILY RF: 0 losartan-hydrochlorothiazide 50-12.5 mg tablet 0.5 tab PO DAILY RF: 0 cholecalciferol (vitamin D3) [Vitamin D3] 1,000 unit Tablet 1,000 mg PO DAILY RF: 0 biotin 5 mg Tablet 2.5 mg PO DAILY RF: 0 atenolol 25 mg Tablet 12.5 mg PO DAILY RF: 0 aspirin 81 mg Tablet,Delayed Release (Dr/Ec) 81 mg PO DAILY RF: 0 Premarin 0.625 mg/gram cream 0.625 mg vaginal DIRECTED RF: 0 triamcinolone acetonide 0.1 % ointment 1 applic TOPICAL DIRECTED PRN (Reason: Skin Irritation) RF: 0 diclofenac sodium 1 % Gel 2 g TOPICAL DIRECTED PRN (Reason: Pain) RF: 0 Discharge Orders: Discharge Order (Routine); Ordered 12/12/21 Ordered By: Li Panda Admission Data Admit Date/Time: 12/11/21 16:39 Attending Provider: Li Panda Admit Provider: Arabella Jordan Primary Care Provider: Gucci Benjamin Other Providers: Arabella Jordan ; Terell Blanco
== END 2021-12-12 17:29 | disposition home or self-care (01) ==
LOC: ED 13:18 → 2N 13:18 → SUATTDRO 16:39 → 2N 21:34

== ENCOUNTER 2021-12-17 14:59 | Inpatient (IN) ==
[2021-12-17] MEDS ORDERED: SODIUM CHLORIDE 0.9% 1000ML 1,000 ML IV SCH (15:45)
[2021-12-17] MEDS ORDERED: cefTRIAXone SODIUM 1,000 MG/50 ML BAG IV STA (16:15)
[2021-12-17] MEDS ORDERED: SODIUM CHLORIDE 0.9% 1000ML 250 ML IV ONE (16:15)
[2021-12-17 16:17] LABS: Basophils # (auto) 0.01 K/uL (0-0.2); Basophils % (auto) 0.2 %; Eosinophils # (auto) 0.07 K/uL (0-0.5); Eosinophils % (auto) 1.1 %; Hematocrit (blood only) 39.4 % (37-47); Hemoglobin 13.3 g/dL (12.0-16.0); Immature Granulocytes # (auto) 0.02 K/uL (0.00-0.02); Immature Granulocytes % (auto) 0.3 %; Lymphocytes % (auto) 1.5 %; Mean Corpuscular Hemoglobin 30.7 pg (25-34); Mean Corpuscular Hgb Conc 33.8 g/dL (32-36); Mean Platelet Volume 9.8 fL (7.4-10.4); Monocytes # (auto) 0.12 K/uL (0.11-0.59); Monocytes % (auto) 1.8 %; Neutrophils # (auto) 6.17 K/uL (1.4-6.5); Neutrophils % (auto) 95.1 %; Platelet Count 126 K/uL (130-400); RDW Coefficient of Variation 13.7 % (11.5-14.5); RDW Standard Deviation 45.8 fL (36.4-46.3); Red Blood Count 4.33 M/uL (4.2-5.4); White Blood Count 6.49 K/uL (4.8-10.8)
[2021-12-17 16:38] LABS: Alanine Aminotransferase 98 U/L (7-52); Albumin Globulin Ratio 1.4 (0.9-2); Albumin Level 3.6 gm/dl (3.4-5.0); Alkaline Phosphatase 99 U/L (34-104); Anion Gap 4 (3-11); Aspartate Aminotransferase 165 U/L (13-39); BUN Creatinine Ratio 16.8 (10-20); Blood Urea Nitrogen 17 mg/dl (6-23); Calcium 8.4 mg/dl (8.5-10.1); Carbon Dioxide 25 mmol/L (21-32); Chloride 99 mmol/L (98-107); Creatinine Clr Calc Pharmacy 31.8 ml/min; Est GFR (African American) 57.6 ml/min; Est GFR (Non-African American) 49.7 ml/min; Globulin 2.5 gm/dl (2.5-4.0); Glucose 103 mg/dl (70-99(Fasting)); Magnesium 1.7 mg/dl (1.7-2.4); Sodium 128 mmol/L (136-145); Total Protein 6.1 gm/dl (6.0-8.3)
[2021-12-17 16:40] LABS: Troponin I < 0.03 ng/ml (0-0.04)
--- NOTE | 2021-12-17 17:36 | XRay Report ---
SINGLE VIEW CHEST CLINICAL HISTORY: Generalized weakness. Cough FINDINGS: An AP, portable, upright chest radiograph is compared to study dated 12/14/2021 and correlat ed with chest CT dated 12/12/2021. The heart is mildly enlarged noting atherosclerotic calcification o f the thoracic aorta. The pulmonary vasculature is noncongested. Chronic interstitial thickening is s imilar to previous. There is bibasilar scarring/atelectasis. No large pleural effusion or pneumothora x is seen. The skeletal structures are osteopenic. The bony thorax is grossly intact. IMPRESSION: No acute cardiopulmonary abnormality. ACT 112: Negative or not required by law. Electronically signed by: Edil Tamez M.D. 12/17/2021 5:33 PM
--- NOTE | 2021-12-17 17:44 | History & Physical Report ---
Date of Service December 17, 2021 Assessment & Plan (1) E. coli UTI: (2) Acute metabolic encephalopathy: (3) Hyponatremia: (4) Generalized weakness: (5) Transaminitis: Plan: Pansensitive E coli UTI -failed outpatient therapy -will admit for IV antibiotics -Ceftriaxone daily -No evidence of sepsis, will follow up blood cultures Hyponatremia -likely in setting of poor oral intake due to recent illness -gentle IVF, repeat BMP tomorrow Acute metabolic encephalopathy -in setting of UTI, also with underlying mild cognitive impairment -monitor for delirium Generalized weakness -PT/OT evaluation Transaminitis -Elevated AST and ALT, normal T bili, normal Alk Phos -Patient is status post cholecystectomy. Pattern of LFT elevation not consistent with retained stone. Likely transaminitis in setting of acute illness -will repeat tomorrow DVT ppx SQ lovenox Code Status Patient admitted as inpatient. Due to her failed outpatient treatment, I expect she will need at least 2 midnight stay. History of Present Illness Chief Complaint: weakness Primary Care Provider: Gucci Benjamin MD Ms Beatriz Arce is a 86 year old female with history of Factor V leiden gene mutation, hyperlipidemia, HTN, asthma, TIA (on aspirin and statin), BPPV who was recently seen in the ER 3 days ago for UTI symptoms. Urine culture ultimately grew pansensitive E coli and she was placed on Macrobid. Since being home, for the past several days, she has been feeling weak, lethargic, sleeping more so her family brought her here. Upon arrival here, Na noted to be 128 and AST and ALT are noted to be elevated. Prior to this, she was last seen in the hospital from 12/11-12/12/21 where she was evaluated for chest pain and was discharged home after a negative workup. Allergies Allergy/AdvReac Type Severity Reaction Status Date / Time morphine Allergy Severe STOPS Verified 12/17/21 15:29 BREATHING moxifloxacin Allergy Intermediate CONFUSION/NIGHT Verified 12/17/21 15:29 CRANE bacitracin Allergy Mild Rash Verified 12/17/21 15:29 polymyxin B Allergy Mild Rash Verified 12/17/21 15:29 tramadol Allergy Unknown CAN'T Verified 12/17/21 15:29 REMEMBER fluorouracil AdvReac Intermediate didn't Verified 12/17/21 15:29 feel good CHIRAG CREAM AdvReac Severe WENT Uncoded 12/17/21 15:29 BALISTIC Home Medications Medication Instructions Recorded Confirmed Type ascorbic acid (vitamin C) 500 mg 500 mg PO DAILY 10/08/18 12/17/21 History tablet (Vitamin C) atorvastatin 10 mg tablet 10 mg PO DAILY 10/08/18 12/17/21 History biotin 5 mg tablet 2.5 mg PO DAILY 10/08/18 12/17/21 History cholecalciferol (vitamin D3) 25 1,000 mg PO DAILY 10/08/18 12/17/21 History mcg (1,000 unit) tablet (Vitamin D3) cyanocobalamin (vitamin B-12) 500 500 mcg PO DAILY 10/08/18 12/17/21 History mcg tablet (Vitamin B-12) losartan 50 mg-hydrochlorothiazide 0.5 tab PO DAILY 10/08/18 12/17/21 History 12.5 mg tablet atenolol 25 mg tablet 12.5 mg PO DAILY 07/03/20 12/17/21 History aspirin 81 mg tablet,delayed 81 mg PO DAILY 12/11/21 12/17/21 History release conjugated estrogens 0.625 mg/gram 0.625 mg VAGINAL DIRECTED 12/11/2112/17 History vaginal cream (Premarin) diclofenac sodium 1 % topical gel 2 g TOPICAL DIRECTED PRN 12/11/21 12/17/21 History triamcinolone acetonide 0.1 % 1 applic TOPICAL DIRECTED PRN 12/11/21 12/17/21 History topical ointment nitroglycerin 0.4 mg sublingual 0.4 mg SUBLINGUAL Q5M PRN 30 Days 12/12/21 12/17/21 Rx tablet (Nitrostat) #60 tab nitrofurantoin 100 mg PO BID 7 Days #14 cap 12/14/21 12/17/21 Rx monohydrate/macrocrystals 100 mg capsule (Macrobid) Past Med/Surg History Medical History Asthma Factor V Leiden, prothrombin gene mutation High blood pressure Hyperlipidemia TIA (transient ischemic attack) Surgical History Hx of cholecystectomy S/P appy S/P cataract extraction S/P spinal surgery Family History Brother Lung cancer Father Lung cancer Sister Pancreatic cancer Social History Smoking Status: Never smoker Second Hand Exposure: No; Hx Alcohol Use: Yes Alcohol type: wine Alcohol Intake Frequency: Monthly or Less Hx Substance Use: No Preferred Language: Portuguese 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 Beliefs That Will Affect Care: None Current Living Situation: Spouse Feels Safe at Home: Yes Assistive Devices: Glasses Review of Systems Review of Systems: Positive for: Weakness, forgetfulness, mild confusion, nausea Denies: chest pain, shortness of breath Remaining ROS reviewed and are negative Physical Exam Physical Exam: Appears weak, elderly, no acute distress ENMT: Mucous membrane dry, neck supple, head normocephalic/atraumatic Respiratory: breathing comfortably on room air, no wheezing/rhonchi/rales Cardiovascular: regular rate and rhythm, no murmurs/rubs/gallops Gastrointestinal (Abdomen): soft, non tender, non distended Musculoskeletal: No edema, no cyanosis or clubbing Skin: No rash or redness or ulcer noted on exposed skin Neurologic: Awake, answering questions slowly, appears mildly confused from prior, spontaneously moving extremities but with generalized weakness Results & Data Results & Data ([facility]) Vital Signs (Past 12 Hours) Vital Signs Temp Pulse Pulse Resp BP BP Pulse Ox 12/17/21 17:00 84 17 106/44 L 97 12/17/21 15:00 37.2 C 89 17 138/70 89 L Laboratory Results Short CBC 12/17/21 Range/Units 16:03 WBC 6.49 (4.8-10.8) K/uL Hgb 13.3 (12.0-16.0) g/dL Hct 39.4 (37-47) % Plt Count 126 L (130-400) K/uL BMP 12/17/21 16:03 Sodium 128 L Potassium 4.0 Chloride 99 Carbon Dioxide 25 BUN 17 Creatinine 1.01 Glucose 103 H Calcium 8.4 L Cardiac Enzymes 12/17/21 Range/Units 16:03 Troponin I < 0.03 (0-0.04) ng/ml Liver Function 12/17/21 Range/Units 16:03 Total Bilirubin 1.0 (0.2-1.0) mg/dl AST 165 H (13-39) U/L ALT 98 H (7-52) U/L Alkaline Phosphatase 99 (34-104) U/L Albumin 3.6 (3.4-5.0) gm/dl Medications Administered Home Medications Medication Instructions Recorded Confirmed ascorbic acid (vitamin C) 500 mg 500 mg PO DAILY 10/08/18 12/17/21 tablet (Vitamin C) atorvastatin 10 mg tablet 10 mg PO DAILY 10/08/18 12/17/21 biotin 5 mg tablet 2.5 mg PO DAILY 10/08/18 12/17/21 cholecalciferol (vitamin D3) 25 1,000 mg PO DAILY 10/08/18 12/17/21 mcg (1,000 unit) tablet (Vitamin D3) cyanocobalamin (vitamin B-12) 500 500 mcg PO DAILY 10/08/18 12/17/21 mcg tablet (Vitamin B-12) losartan 50 mg-hydrochlorothiazide 0.5 tab PO DAILY 10/08/18 12/17/21 12.5 mg tablet atenolol 25 mg tablet 12.5 mg PO DAILY 07/03/20 12/17/21 aspirin 81 mg tablet,delayed 81 mg PO DAILY 12/11/21 12/17/21 release conjugated estrogens 0.625 mg/gram 0.625 mg VAGINAL DIRECTED 12/11/21 12/17/21 vaginal cream (Premarin) diclofenac sodium 1 % topical gel 2 g TOPICAL DIRECTED PRN 12/11/21 12/17/21 triamcinolone acetonide 0.1 % 1 applic TOPICAL DIRECTED PRN 12/11/21 12/17/21 topical ointment Previous Rx's Medication Instructions Recorded nitroglycerin 0.4 mg sublingual 0.4 mg SUBLINGUAL Q5M PRN 30 Days 12/12/21 tablet (Nitrostat) #60 tab nitrofurantoin 100 mg PO BID 7 Days #14 cap 12/14/21 monohydrate/macrocrystals 100 mg capsule (Macrobid) Current Inpatient Medications Sodium Chloride (Nss 1000ml) 1,000 mls @ 125 mls/hr IV .Q8H KYLIE Stop: 12/17/21 23:44
--- NOTE | 2021-12-17 18:32 | CT Scan Report ---
CT SCAN OF THE ABDOMEN AND PELVIS WITHOUT IV CONTRAST CLINICAL HISTORY: Urinary tract infection. Change in mental status. COMPARISON STUDY: Abdominal CT dated 05/10/2013. TECHNIQUE: CT scan of the abdomen and pelvis is performed from the lung bases to the proximal femora. Images are reviewed in the axial, sagittal, and coronal planes. IV contrast was not administered for this examination. Note that the examination is suboptimal without oral and IV contrast. A dose lower ing technique was utilized adhering to the principles of ALARA. CT DOSE: 263.81 mGy.cm FINDINGS: Lung bases: The heart is mildly enlarged and without pericardial effusion. Intralobular septal thicke sp is noted at the lung bases. There are trace pleural effusions with dependent consolidation. A sm all hiatal hernia is noted. Liver: The unenhanced liver is normal in size, contour, and attenuation. There is no intrahepatic jake iary ductal dilatation. Gallbladder: Not identified and presumed surgically absent. Spleen: Normal in size and attenuation. Pancreas: The unenhanced pancreas is moderately atrophic and grossly unremarkable. Adrenal glands: Unremarkable. Kidneys: The unenhanced kidneys demonstrate cortical atrophy and are without hydronephrosis. There ar e no renal calculi identified. There is no evidence of contour deforming renal mass lesion. Abdominal vasculature: The abdominal aorta is normal in course and caliber noting advanced atheroscle rotic calcification. Bowel: There is mild to moderate sigmoid diverticulosis without CT evidence of acute diverticulitis. No bowel obstruction is identified. The appendix is not identified. Peritoneum: No intraperitoneal free air is identified. There is trace perihepatic and pelvic ascites. Lymphadenopathy: None. Pelvic viscera: The bladder wall is thickened and there is pericystic inflammation. Intraluminal gas is noted. The uterus is surgically absent. No adnexal lesion is seen. Skeletal structures: The skeletal structures are osteopenic. There is moderate lumbosacral spondylosi s and scoliosis. No lytic or blastic lesions are seen. Degenerative change is noted in the hips. Nume brynn calcified joint bodies are seen on the right. Sclerotic change is noted in the pubic symphysis. There is a chronic appearing compression deformity of L1. IMPRESSION: 1. There is evidence of cystitis. Correlate with clinical findings and urinalysis. 2. Trace abdominopelvic ascites. 3. There are trace pleural effusions with dependent consolidation. This likely represents atelectasis and clinical correlation will be required. 4. Mild cardiomegaly with intralobular septal thickening at the lung bases. Correlate clinically for evidence of fluid overload/congestive change. 5. Colonic diverticulosis without CT evidence of acute diverticulitis. 6. Additional findings as above. ACT 112: Negative or not required by law. Electronically signed by: Edil Tamez M.D. 12/17/2021 6:30 PM
[2021-12-17 18:51] LABS: Appearance Urine Cloudy (Clear); Bacteria Urine Automated Negative (Negative); Blood Urine 3+ (Negative); Color Urine Dark Yellow; Epithelial Cell Urine Auto >30 /lpf (0-5); Glucose Urine UA Negative (Negative); Ketones Urine 1+ (Negative); Leukocyte Esterase Urine 1+ (Negative); Nitrite Urine Negative (Negative); Protein Urine 2+ (Negative); Specific Gravity Urine 1.023 (1.000-1.030); Urobilinogen Urine Negative (Negative); pH Urine 5.5 (4.5-7.5)
[2021-12-17 18:57] LABS: Bilirubin Urine 1+ (Negative)
[2021-12-17] MEDS ORDERED: MAGNESIUM HYDROXIDE SUSP 30 ML UDC PO PRN (22:49)
[2021-12-17] MEDS ORDERED: ALUMINUM/MAGNESIUM SUSP 30 ML UDC PO PRN (22:49)
[2021-12-17] MEDS ORDERED: ONDANSETRON INJ 2 MG/ML 2 ML VIAL IV PRN (22:49)
[2021-12-17] MEDS: SODIUM CHLORIDE 0.9% 500 ML IV SCH (22:59)
[2021-12-18] MEDS: SODIUM CHLORIDE 0.9% 500 ML IV SCH ×4 (04:42→22:52)
[2021-12-18] MEDS: CYANOCOBALAMIN (B-12) 500 MCG TABLET PO SCH (08:07)
[2021-12-18] MEDS: ATENOLOL 25 MG TABLET PO SCH (08:07)
[2021-12-18] MEDS: ASPIRIN 81 MG ECTAB PO SCH (08:07)
[2021-12-18] MEDS: ENOXAPARIN INJ 40 MG/0.4 ML SYR SQ SCH (08:08)
[2021-12-18] MEDS: CHOLECALCIFEROL 1,000 UNITS 25 MCG TAB PO SCH (08:08)
[2021-12-18 08:44] LABS: Hematocrit (blood only) 35.4 % (37-47); Hemoglobin 11.8 g/dL (12.0-16.0); Mean Corpuscular Hemoglobin 30.1 pg (25-34); Mean Corpuscular Hgb Conc 33.3 g/dL (32-36); Mean Corpuscular Volume 90.3 fL (80-100); Mean Platelet Volume 10.3 fL (7.4-10.4); Platelet Count 110 K/uL (130-400); RDW Coefficient of Variation 13.9 % (11.5-14.5); RDW Standard Deviation 45.8 fL (36.4-46.3); Red Blood Count 3.92 M/uL (4.2-5.4)
[2021-12-18 09:20] LABS: BUN Creatinine Ratio 18.8 (10-20); Calcium 7.2 mg/dl (8.5-10.1); Creatinine Clr Calc Pharmacy 40.2 ml/min; Est GFR (African American) 76.3 ml/min; Est GFR (Non-African American) 65.8 ml/min; Potassium 3.5 mmol/L (3.5-5.1)
--- NOTE | 2021-12-18 10:01 | Emergency Department Note ---
Impression & Plan Acute UTI, Failure of outpatient treatment, Encephalopathy, metabolic ED Provider Note CHIEF COMPLAINT: Weakness, UTI HISTORY OF PRESENT ILLNESS: This 86-year-old female patient presents to the emergency department with complaints of generalized fatigue, decreased p.o. intake and recent UTI diagnosis. Patient has been asleep on the couch for the last 24 hours. She was at home with her but her son came to check on her. She had not yet taken her morning medications. She has been feeling a little nauseated but no notable temperature. She was recently diagnosed with a UTI and prescribed Macrobid. Patient was noted to have a pansensitive E. coli on urine culture. She does have compromised renal function at baseline. Patient denies any vomiting or diarrhea. 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 She is uncertain if the patient is "exhausted" from overexertion or if she is ill. REVIEW OF SYSTEMS: A review of systems was performed with positives and pertinent negatives listed in the history of present illness. 10 systems were reviewed and are otherwise negative. ALLERGIES: see below MEDICATIONS: see below PMH: see below SOCIAL HISTORY: see below DDx: Infection, dehydration, metabolic abnormality, hypo/hyperglycemia, electrolyte disturbance, anemia, hypoxia, cardiac sources, intracerebral event, toxicologic, neurologic, as well as other pathologies. PHYSICAL EXAM: Vital signs reviewed. General: Somewhat ill-appearing, elderly 86-year-old female, in no significant distress. HEENT: No scleral icterus, PERRLA, neck supple. Atraumatic. Cardiovascular: Regular rate and rhythm, no extra sounds. Pulmonary: Clear to auscultation bilaterally, normal work of breathing. On nasal cannula oxygen Abdomen: Soft, nontender, nondistended, positive bowel sounds. Musculoskeletal: Atraumatic, no peripheral edema. Neurologic: Patient awake alert and oriented x 3, speech is clear Skin: Warm, dry, no rash EMERGENCY DEPARTMENT COURSE/MDM: This patient was evaluated and appeared to be in no significant distress. IV access was obtained and laboratory work was drawn. Patient was placed on special effects artist and noted to be in normal sinus rhythm. EKG reveals no evidence of acute ischemic change. Laboratory work reveals normal WBC but is indicative of a chronic kidney disease. UA is indicat onel of infection. Previous records were reviewed and culture results are positive for a pansensitive E. coli. Patient may be having a metabolic encephalopathy related to the Macrobid or the UTI itself. Patient was given 1 g of IV ceftriaxone and hydrated with normal saline solution. She does not appear to be septic at this time. CT imaging of the abdomen pelvis was performed and reveals findings consistent with cystitis. There is no obstructing uropathy. Patient's case was discussed with the hospitalist service who will evaluate the patient for admission and further management. MONITORING: An order for cardiac monitoring was placed and the patient is noted to be in a NSR at 84 beats per minute. RADIOLOGY: See below EKG: Normal sinus rhythm at 88 bpm with a nonspecific ST abnormality. Normal axis, QTC of 411. No PVC, no PAC. No significant change from previous dated 12/14/2021 DISPOSITION: Admission Past Med/Surg History Medical History Asthma Factor V Leiden, prothrombin gene mutation High blood pressure Hyperlipidemia TIA (transient ischemic attack) Surgical History Hx of cholecystectomy S/P appy S/P cataract extraction S/P spinal surgery Family History Brother Lung cancer Father Lung cancer Sister Pancreatic cancer Social History Smoking Status: Never smoker Second Hand Exposure: No; Hx Alcohol Use: Yes Alcohol type: wine Alcohol Intake Frequency: Monthly or Le ss Hx Substance Use: No Preferred Language: Cymraes Communication Ability: Effective Nutrition Helper Required: No Beliefs That Will Affect Care: None marital status: Current Living Situation: Spouse How many Children do You have: 4 Other Information That Helps Us Care for You: No Feels Safe at Home: Yes Safety Concerns: Feels Safe At This Time Assistive Devices: Walker Allergies Allergies Allergy/AdvReac Type Severity Reaction Status Date / Time morphine Allergy Severe STOPS Verified 12/17/21 15:29 BREATHING moxifloxacin Allergy Intermediate CONFUSION/NIGHT Verified 12/17/21 15:29 CRANE bacitracin Allergy Mild Rash Verified 12/17/21 15:29 polymyxin B Allergy Mild Rash Verified 12/17/21 15:29 tramadol Allergy Unknown CAN'T Verified 12/17/21 15:29 REMEMBER fluorouracil AdvReac Intermediate didn't Verified 12/17/21 15:29 feel good CHIRAG CREAM AdvReac Severe WENT Uncoded 12/17/21 15:29 BALISTIC Home Meds Home Medications Medication Instructions Recorded Confirmed ascorbic acid (vitamin C) 500 mg 500 mg PO DAILY 10/08/18 12/17/21 tablet (Vitamin C) biotin 5 mg tablet 2.5 mg PO DAILY 10/08/18 12/17/21 cholecalciferol (vitamin D3) 25 1,000 mg PO DAILY 10/08/18 12/17/21 mcg (1,000 unit) tablet (Vitamin D3) cyanocobalamin (vitamin B-12) 500 500 mcg PO DAILY 10/08/18 12/17/21 mcg tablet (Vitamin B-12) atenolol 25 mg tablet 12.5 mg PO DAILY 07/03/20 12/17/21 aspirin 81 mg tablet,delayed 81 mg PO DAILY 12/11/21 12/17/21 release conjugated estrogens 0.625 mg/gram 0.625 mg VAGINAL DIRECTED 12/11/21 12/17/21 vaginal cream (Premarin) diclofenac sodium 1 % topical gel 2 g TOPICAL DIRECTED PRN 12/11/21 12/17/21 triamcinolone acetonide 0.1 % 1 applic TOPICAL DIRECTED PRN 12/11/21 12/17/21 topical ointment Previous Rx's Medication Instructions Recorded nitroglycerin 0.4 mg sublingual 0.4 mg SUBLINGUAL Q5M PRN 30 Days 12/12/21 tablet (Nitrostat) #60 tab losartan 25 mg tablet 25 mg PO DAILY #30 tab 12/19/21 Results & Data (ED) Vital Signs Vital Signs - 24 hr 12/17/21 15:00 12/17/21 17:00 12/17/21 19:00 Temperature 37.2 C Temperature Source Oral Pulse Rate 89 78 Pulse Rate [Apical] 84 78 Pulse Rate from SpO2 Sensor 78 Pulse Rhythm [Apical] Regular Respiratory Rate 17 17 26 H Respiratory Effort / Characteristics Non-Labored Respiratory Depth Normal Normal Blood Pressure 138/70 Blood Pressure [Right Arm] 106/44 L 115/62 Blood Pressure Mean 92 Blood Pressure Mean [Right Arm] 64 79 Pulse Oximetry 89 L 97 97 Oxygen Delivery Method Room Air Nasal Cannula Room Air Oxygen Flow Rate 0 2 Sepsis Recent Fever Within 48 Hours Yes Sepsis New/Unexplained Change in Mental Status Yes Sepsis Action Taken by Nursing No Action Required Oxygen Flow Rate - Titration 2 Pulse Oximetry Post Tiitration 96 Home Medications Current Medication List: was personally reviewed by me Laboratory Data Attestation: I reviewed the patient's lab results. Result diagrams: 12/19/21 06:46 12/19/21 06:46 Lab Results 12/17/21 12/17/21 12/17/21 Range/Units 16:03 16:03 16:03 WBC 6.49 (4.8-10.8) K/uL RBC 4.33 (4.2-5.4) M/uL Hgb 13.3 (12.0-16.0) g/dL Hct 39.4 (37-47) % MCV 91.0 (80-100) fL MCH 30.7 (25-34) pg MCHC 33.8 (32-36) g/dL RDW Std Deviation 45.8 (36.4-46.3) fL RDW Coeff of Byron 13.7 (11.5-14.5) % Plt Count 126 L (130-400) K/uL MPV 9.8 (7.4-10.4) fL Immature Gran % (Auto) 0.3 % Neut % (Auto) 95.1 % Lymph % (Auto) 1.5 % [place] % (Auto) 1.8 % Eos % (Auto) 1.1 % Baso % (Auto) 0.2 % Neut # (Auto) 6.17 (1.4-6.5) K/uL Lymph # (Auto) 0.10 L (1.2-3.4) K/uL [place] # (Auto) 0.12 (0.11-0.59) K/uL Eos # (Auto) 0.07 (0-0.5) K/uL Baso # (Auto) 0.01 (0-0.2) K/uL Immature Gran # (Auto) 0.02 (0.00-0.02) K/uL Sodium 128 L (136-145) mmol/L Potassium 4.0 (3.5-5.1) mmol/L Chloride 99 (98-107) mmol/L Carbon Dioxide 25 (21-32) mmol/L Anion Gap 4 (3-11) BUN 17 (6-23) mg/dl Creatinine 1.01 (0.6-1.2) mg/dl Est Cr Clr Drug Dosing 31.8 ml/min Est GFR ( Amer) 57.6 ml/min Est GFR (Non-Af Amer) 49.7 ml/min BUN/Creatinine Ratio 16.8 (10-20) Glucose 103 H (70-99(Fasting)) mg/dl Lactate (0.4-2.0) mmol/L Calcium 8.4 L (8.5-10.1) mg/dl Magnesium 1.7 (1.7-2.4) mg/dl Total Bilirubin 1.0 (0.2-1.0) mg/dl AST 165 H (13-39) U/L ALT 98 H (7-52) U/L Alkaline Phosphatase 99 (34-104) U/L Troponin I < 0.03 (0-0.04) ng/ml Total Protein 6.1 (6.0-8.3) gm/dl Albumin 3.6 (3.4-5.0) gm/dl Globulin 2.5 (2.5-4.0) gm/dl Albumin/Globulin Ratio 1.4 (0.9-2) TSH 0.438 (0.300-4.500) uIu/ml Urine Color Urine Appearance (Clear) Urine pH (4.5-7.5) Ur Specific [place] (1.000-1.030) Urine Protein (Negative) Urine Glucose (UA) (Negative) Urine Ketones (Negative) Urine Blood (Negative) Urine Nitrite (Negative) Urine Bilirubin (Negative) Urine Urobilinogen (Negative) Ur Leukocyte Esterase (Negative) Urine WBC (Auto) (0-5) /hpf Urine RBC (Auto) (0-4) /hpf U Hyaline Cast (Auto) (0-5) /lpf U Epithel Cells (Auto) (0-5) /lpf Urine Bacteria (Auto) (Negative) Ur Renal Epithelial Cell Urine Yeast (None Prsent) SARS-CoV-2, RNA, NAAT (NEGATIVE) 12/17/21 12/17/21 12/17/21 Range/Units 16:19 16:26 18:30 WBC (4.8-10.8) K/uL RBC (4.2-5.4) M/uL Hgb (12.0-16.0) g/dL Hct (37-47) % MCV (80-100) fL MCH (25-34) pg MCHC (32-36) g/dL RDW Std Deviation (36.4-46.3) fL RDW Coeff of Byron (11.5-14.5) % Plt Count (130-400) K/uL MPV (7.4-10.4) fL Immature Gran % (Auto) % Neut % (Auto) % Lymph % (Auto) % [place] % (Auto) % Eos % (Auto) % Baso % (Auto) % Neut # (Auto) (1.4-6.5) K/uL Lymph # (Auto) (1.2-3.4) K/uL [place] # (Auto) (0.11-0.59) K/uL Eos # (Auto) (0-0.5) K/uL Baso # (Auto) (0-0.2) K/uL Immature Gran # (Auto) (0.00-0.02) K/uL Sodium (136-145) mmol/L Potassium (3.5-5.1) mmol/L Chloride (98-107) mmol/L Carbon Dioxide (21-32) mmol/L Anion Gap (3-11) BUN (6-23) mg/dl Creatinine (0.6-1.2) mg/dl Est Cr Clr Drug Dosing ml/min Est GFR ( Amer) ml/min Est GFR (Non-Af Amer) ml/min BUN/Creatinine Ratio (10-20) Glucose (70-99(Fasting)) mg/dl Lactate 1.0 (0.4-2.0) mmol/L Calcium (8.5-10.1) mg/dl Magnesium (1.7-2.4) mg/dl Total Bilirubin (0.2-1.0) mg/dl AST (13-39) U/L ALT (7-52) U/L Alkaline Phosphatase (34-104) U/L Troponin I (0-0.04) ng/ml Total Protein (6.0-8.3) gm/dl Albumin (3.4-5.0) gm/dl Globulin (2.5-4.0) gm/dl Albumin/Globulin Ratio (0.9-2) TSH (0.300-4.500) uIu/ml Urine Color Dark Yellow Urine Appearance Cloudy A (Clear) Urine pH 5.5 (4.5-7.5) Ur Specific [place] 1.023 (1.000-1.030) Urine Protein 2+ H (Negative) Urine Glucose (UA) Negative (Negative) Urine Ketones 1+ H (Negative) Urine Blood 3+ H (Negative) Urine Nitrite Negative (Negative) Urine Bilirubin 1+ H (Negative) Urine Urobilinogen Negative (Negative) Ur Leukocyte Esterase 1+ H (Negative) Urine WBC (Auto) 10-30 H (0-5) /hpf Urine RBC (Auto) 10-30 H (0-4) /hpf U Hyaline Cast (Auto) 1-5 (0-5) /lpf U Epithel Cells (Auto) >30 H (0-5) /lpf Urine Bacteria (Auto) Negative (Negative) Ur Renal Epithelial Cell Not Reportable Urine Yeast Budding A (None Prsent) SARS-CoV-2, RNA, NAAT NEGATIVE (NEGATIVE) Administered Medications Discontinued Medications Aspirin (Aspirin 81 Mg Ectab) 81 mg PO DAILY KYLIE Stop: 01/17/22 08:59 Last Admin: 12/19/21 09:25 Dose: 81 mg Documented by: [id number] Admin: 12/18/21 08:07 Dose: 81 mg Documented by: [id number] Atenolol (Atenolol 25 Mg Tablet) 12.5 mg PO DAILY KYLIE Stop: 01/17/22 08:59 Last Admin: 12/19/21 08:05 Dose: 12.5 mg Documented by: [id number] Admin: 12/18/21 08:07 Dose: 12.5 mg Documented by: [id number] Cyanocobalamin (Cyanocobalamin (B-12) 500 Mcg Tablet) 500 mcg PO DAILY KYLIE Stop: 01/17/22 08:59 Last Admin: 12/19/21 08:05 Dose: 500 mcg Documented by: [id number] Admin: 12/18/21 08:07 Dose: 500 mcg Documented by: [id number] Enoxaparin Sodium (Enoxaparin Inj 40 Mg/0.4 Ml Syr) 40 mg SQ QAM KYLIE Stop: 01/17/22 08:59 Last Admin: 12/19/21 08:06 Dose: 40 mg Documented by: [id number] Admin: 12/18/21 08:08 Dose: 40 mg Documented by: [id number] Sodium Chloride (Nss 1000ml) 1,000 mls @ 125 mls/hr IV .Q8H KYLIE Stop: 12/17/21 23:44 Last Infusion: 12/17/21 22:51 Dose: 0 mls/hr Documented by: [id number] Admin: 12/17/21 18:29 Dose: 125 mls/hr Documented by: [id number] Ceftriaxone Sodium (Rocephin) 1,000 mg in 50 mls @ 100 mls/hr IV NOW STA Stop: 12/17/21 16:44 Last Infusion: 12/17/21 19:03 Dose: 0 mls/hr Documented by: [id number] Admin: 12/17/21 18:29 Dose: 100 mls/hr Documented by: [id number] Sodium Chloride (Nss 1000ml) 250 mls @ 999 mls/hr IV .Q16M ONE Stop: 12/17/21 16:30 Last Infusion: 12/17/21 19:03 Dose: 0 mls/hr Documented by: [id number] Admin: 12/17/21 18:29 Dose: 999 mls/hr Documented by: [id number] Ceftriaxone Sodium 1,000 mg/ (Dextrose) 50 mls @ 100 mls/hr IV Q24H KYLIE; Protocol Stop: 12/23/21 16:59 Last Infusion: 12/19/21 14:52 Dose: 0 mls/hr Documented by: [id number] Admin: 12/19/21 14:21 Dose: 100 mls/hr Documented by: [id number] Infusion: 12/18/21 17:03 Dose: 0 mls/hr Documented by: [id number] Admin: 12/18/21 16:27 Dose: 100 mls/hr Documented by: [id number] Sodium Chloride (Nss) 500 mls @ 80 mls/hr IV .Q6H15M KYLIE Stop: 01/16/22 22:48 Last Infusion: 12/19/21 13:25 Dose: 0 mls/hr Documented by: [id number] Admin: 12/19/21 10:28 Dose: 80 mls/hr Documented by: [id number] Infusion: 12/19/21 10:28 Dose: 80 mls/hr Documented by: [id number] Admin: 12/19/21 04:24 Dose: 80 mls/hr Documented by: [id number] Infusion: 12/19/21 04:24 Dose: 80 mls/hr Documented by: [id number] Admin: 12/18/21 22:52 Dose: 80 mls/hr Documented by: [id number] Infusion: 12/18/21 22:26 Dose: 80 mls/hr Documented by: [id number] Admin: 12/18/21 16:11 Dose: 80 mls/hr Documented by: [id number] Infusion: 12/18/21 16:11 Dose: 0 mls/hr Documented by: [id number] Admin: 12/18/21 09:46 Dose: 80 mls/hr Documented by: [id number] Infusion: 12/18/21 09:45 Dose: 0 mls/hr Documented by: [id number] Admin: 12/18/21 04:42 Dose: 80 mls/hr Documented by: [id number] Infusion: 12/18/21 04:42 Dose: 80 mls/hr Documented by: [id number] Admin: 12/17/21 22:59 Dose: 80 mls/hr Documented by: [id number] Potassium Chloride (Potassium Chloride Crtab 20 Meq Tabcr) 40 meq PO NOW STA Stop: 12/19/21 08:59 Last Admin: 12/19/21 09:25 Dose: 40 meq Documented by: [id number] Vitamin D (Cholecalciferol 1,000 Units 25 Mcg Tab) 1,000 units PO DAILY KYLIE Stop: 01/17/22 08:59 Last Admin: 12/19/21 08:05 Dose: 1,000 units Documented by: [id number] Admin: 12/18/21 08:08 Dose: 1,000 units Documented by: [id number] Imaging Data Radiologist's Impression: Chest X-Ray 12/17/21 15:45 SINGLE VIEW CHEST CLINICAL HISTORY: Generalized weakness. Cough FINDINGS: An AP, portable, upright chest radiograph is compared to study dated 12/14/2021 and correlated with chest CT dated 12/12/2021. The heart is mildly enlarged noting atherosclerotic calcification of the thoracic aorta. The pulmonary vasculature is noncongested. Chronic interstitial thickening is similar to previous. There is bibasilar scarring/atelectasis. No large pleural effusion or pneumothorax is seen. The skeletal structures are osteopenic. The bony thorax is grossly intact. IMPRESSION: No acute cardiopulmonary abnormality. ACT 112: Negative or not required by law. Electronically signed by: Edil Tamez M.D. 12/17/2021 5:33 PM Abdomen/Pelvis CT 12/17/21 17:02 CT SCAN OF THE ABDOMEN AND PELVIS WITHOUT IV CONTRAST CLINICAL HISTORY: Urinary tract infection. Change in mental status. COMPARISON STUDY: Abdominal CT dated 05/10/2013. TECHNIQUE: CT scan of the abdomen and pelvis is performed from the lung bases to the proximal femora. Images are reviewed in the axial, sagittal, and coronal planes. IV contrast was not administered for this examination. Note that the examination is suboptimal without oral and IV contrast. A dose lowering technique was utilized adhering to the principles of ALARA. CT DOSE: 263.81 mGy.cm FINDINGS: Lung bases: The heart is mildly enlarged and without pericardial effusion. Intralobular septal thickening is noted at the lung bases. There are trace pleural effusions with dependent consolidation. A small hiatal hernia is noted. Liver: The unenhanced liver is normal in size, contour, and attenuation. There is no intrahepatic biliary ductal dilatation. Gallbladder: Not identified and presumed surgically absent. Spleen: Normal in size and attenuation. Pancreas: The unenhanced pancreas is moderately atrophic and grossly unremar kable. Adrenal glands: Unremarkable. Kidneys: The unenhanced kidneys demonstrate cortical atrophy and are without hydronephrosis. There are no renal calculi identified. There is no evidence of contour deforming renal mass lesion. Abdominal vasculature: The abdominal aorta is normal in course and caliber noting advanced atherosclerotic calcification. Bowel: There is mild to moderate sigmoid diverticulosis without CT evidence of acute diverticulitis. No bowel obstruction is identified. The appendix is not identified. Peritoneum: No intraperitoneal free air is identified. There is trace perihepatic and pelvic ascites. Lymphadenopathy: None. Pelvic viscera: The bladder wall is thickened and there is pericystic inflammation. Intraluminal gas is noted. The uterus is surgically absent. No adnexal lesion is seen. Skeletal structures: The skeletal structures are osteopenic. There is moderate lumbosacral spondylosis and scoliosis. No lytic or blastic lesions are seen. Degenerative change is noted in the hips. Numerous calcified joint bodies are seen on the right. Sclerotic change is noted in the pubic symphysis. There is a chronic appearing compression deformity of L1. IMPRESSION: 1. There is evidence of cystitis. Correlate with clinical findings and urinalysis. 2. Trace abdominopelvic ascites. 3. There are trace pleural effusions with dependent consolidation. This likely represents atelectasis and clinical correlation will be required. 4. Mild cardiomegaly with intralobular septal thickening at the lung bases. Correlate clinically for evidence of fluid overload/congestive change. 5. Colonic diverticulosis without CT evidence of acute diverticulitis. 6. Additional findings as above. ACT 112: Negative or not required by law. Electronically signed by: Edil Tamez M.D. 12/17/2021 6:30 PM Blood Pressure Blood Pressure Findings: Normal blood pressure Blood Pressure Disposition: did not require urgent referral Discharge Plan Visit Data Chief Complaint: Weakness ED Provider: Jeannette Hidalgo Discharge Problem: Acute UTI, Failure of outpatient treatment, Encephalopathy, metabolic Patient Disposition: Admitted As Inpatient Condition: Good Discharge Instructions Interventions: ED Discharge Assessment Last Done: 12/17/21 22:33
--- NOTE | 2021-12-18 10:47 | Electrocardiogram Report ---
Test Reason : Blood Pressure : / mmHG Vent. Rate : 088 BPM Atrial Rate : 088 BPM P-R Int : 170 ms QRS Dur : 084 ms QT Int : 340 ms P-R-T Axes : 065 010 066 degrees QTc Int : 411 ms Normal sinus rhythm Nonspecific ST abnormality Abnormal ECG When compared with ECG of 14-DEC-2021 14:42, No significant change was found Confirmed by Brennon Cruz ([id number]) on 12/18/2021 10:46:35 AM Referred By: REFERRED SELF Confirmed By:Brennon Cruz
[2021-12-18] MEDS: cefTRIAXone SODIUM 1,000 MG in DEXTROSE 5% 50 ML IV SCH (16:27)
--- NOTE | 2021-12-18 18:19 | Hospitalist Progress Note ---
Date of Service December 18, 2021 Assessment & Plan (1) E. coli UTI: (2) Acute metabolic encephalopathy: (3) Hyponatremia: (4) Generalized weakness: (5) Transaminitis: Plan: Pansensitive E coli UTI -failed outpatient therapy -No evidence of sepsis, blood cultures negative -was on Macrobid outpatient, day #2 ceftriaxone here Hyponatremia -likely in setting of poor oral intake due to recent illness -improved with IVF. Patient feels much better. Would continue with IVF for another day Acute metabolic encephalopathy -in setting of UTI, also with underlying mild cognitive impairment and dehydration -resolved Generalized weakness -PT cleared to return home. Family with concerns about patient returning home. Patient would be amenable to home care services Transaminitis -Elevated AST and ALT, normal T bili, normal Alk Phos -Patient is status post cholecystectomy. Pattern of LFT elevation not consistent with retained stone. Likely transaminitis in setting of acute illness Disposition-Can discharge home tomorrow if she continues to do well. Would r ecommend Home Care services if she is agreeable DVT ppx SQ lovenox Code Status-- Full Admission and Anticipated Discharge Date Admission Date: December 17, 2021 Subjective Feels better, appetite improved Evaluated by PT and recommended to return home Daughter concerned about patient returning home--> I suggested home care services and patient will consider Physical Exam Physical Exam: Bright, eating dinner, family is visiting Respiratory: Breathing comfortably on room air, no wheezing/rhonchi/rales Cardiovascular: Regular rate and rhythm, no murmurs/rubs/gallops Gastrointestinal (Abdomen): Soft, non tender, non distended Musculoskeletal: No edema Neurologic: Awake, self feeding, spontaneously moving extremities Results & Data Results & Data ([facility]) Vital Signs (Past 12 Hours) Vital Signs Temp Pulse Resp BP Pulse Ox 12/18/21 07:25 36.7 C 79 16 126/65 96 Laboratory Results Short CBC 12/18/21 Range/Units 07:48 WBC 3.20 L (4.8-10.8) K/uL Hgb 11.8 L (12.0-16.0) g/dL Hct 35.4 L (37-47) % Plt Count 110 L (130-400) K/uL BMP 12/18/21 07:48 Sodium 132 L Potassium 3.5 Chloride 102 Carbon Dioxide 23 BUN 15 Creatinine 0.80 Glucose 81 Calcium 7.2 L Urine 12/17/21 Range/Units 18:30 Urine Color Dark Yellow Urine Appearance Cloudy A (Clear) Urine pH 5.5 (4.5-7.5) Ur Specific [place] 1.023 (1.000-1.030) Urine Protein 2+ H (Negative) Urine Glucose (UA) Negative (Negative) Medications Administered Current Inpatient Medications Al Hydrox/Mg Hydrox/Simethicone (Aluminum/Magnesium Susp 30 Ml Udc) 30 ml PO Q6H PRN PRN Reason: Dyspepsia Stop: 01/16/22 22:48 Aspirin (Aspirin 81 Mg Ectab) 81 mg PO DAILY [facility] Stop: 01/17/22 08:59 Last Admin: 12/18/21 08:07 Dose: 81 mg Documented by: Atenolol (Atenolol 25 Mg Tablet) 12.5 mg PO DAILY [facility] Stop: 01/17/22 08:59 Last Admin: 12/18/21 08:07 Dose: 12.5 mg Documented by: Cyanocobalamin (Cyanocobalamin (B-12) 500 Mcg Tablet) 500 mcg PO DAILY [facility] Stop: 01/17/22 08:59 Last Admin: 12/18/21 08:07 Dose: 500 mcg Documented by: Enoxaparin Sodium (Enoxaparin Inj 40 Mg/0.4 Ml Syr) 40 mg SQ QAM [facility] Stop: 01/17/22 08:59 Last Admin: 12/18/21 08:08 Dose: 40 mg Documented by: Ceftriaxone Sodium 1,000 mg/ (Dextrose) 50 mls @ 100 mls/hr IV Q24H [facility]; Protocol Stop: 12/23/21 16:59 Last Infusion: 12/18/21 17:03 Dose: Infused Documented by: Sodium Chloride (Nss) 500 mls @ 80 mls/hr IV .Q6H15M [facility] Stop: 01/16/22 22:48 Last Admin: 12/18/21 16:11 Dose: 80 mls/hr Documented by: Magnesium Hydroxide (Magnesium Hydroxide Susp 30 Ml Udc) 30 ml PO Q6H PRN PRN Reason: Constipation Stop: 01/16/22 22:48 Ondansetron HCl (Ondansetron Inj 2 Mg/Ml 2 Ml Vial) 4 mg IV Q6H PRN PRN Reason: Nausea Stop: 01/16/22 22:48 Vitamin D (Cholecalciferol 1,000 Units 25 Mcg Tab) 1,000 units PO DAILY KYLIE Stop: 01/17/22 08:59 Last Admin: 12/18/21 08:08 Dose: 1,000 units Documented by:
[2021-12-19] MEDS: SODIUM CHLORIDE 0.9% 500 ML IV SCH ×2 (04:24→10:28)
[2021-12-19 07:58] LABS: Hematocrit (blood only) 31.8 % (37-47); Hemoglobin 10.9 g/dL (12.0-16.0); Mean Corpuscular Hemoglobin 30.4 pg (25-34); Mean Corpuscular Hgb Conc 34.3 g/dL (32-36); Mean Corpuscular Volume 88.6 fL (80-100); Mean Platelet Volume 10.1 fL (7.4-10.4); Platelet Count 128 K/uL (130-400); RDW Coefficient of Variation 13.5 % (11.5-14.5); RDW Standard Deviation 44.6 fL (36.4-46.3); Red Blood Count 3.59 M/uL (4.2-5.4); White Blood Count 3.82 K/uL (4.8-10.8)
[2021-12-19] MEDS: CYANOCOBALAMIN (B-12) 500 MCG TABLET PO SCH (08:05)
[2021-12-19] MEDS: CHOLECALCIFEROL 1,000 UNITS 25 MCG TAB PO SCH (08:05)
[2021-12-19] MEDS: ATENOLOL 25 MG TABLET PO SCH (08:05)
[2021-12-19] MEDS: ENOXAPARIN INJ 40 MG/0.4 ML SYR SQ SCH (08:06)
[2021-12-19 08:30] LABS: BUN Creatinine Ratio 14.9 (10-20); Calcium 7.4 mg/dl (8.5-10.1); Est GFR (Non-African American) 78.5 ml/min; Potassium 3.4 mmol/L (3.5-5.1)
[2021-12-19] MEDS ORDERED: POTASSIUM CHLORIDE CRTAB 20 MEQ TABCR PO STA (08:58)
[2021-12-19] MEDS: ASPIRIN 81 MG ECTAB PO SCH (09:25)
[2021-12-19 10:33] LABS: Albumin Level 2.9 gm/dl (3.4-5.0); Bilirubin Direct 0.1 mg/dl (0-0.2); Bilirubin,Total 0.4 mg/dl (0.2-1.0); Total Protein 4.9 gm/dl (6.0-8.3)
--- NOTE | 2021-12-19 11:10 | Discharge Summary ---
Date of Service December 19, 2021 Admission HPI Per Admitting Provider Ms Beatriz Arce is a 86 year old female with history of Factor V leiden gene mutation, hyperlipidemia, HTN, asthma, TIA (on aspirin and statin), BPPV who was recently seen in the ER 3 days ago for UTI symptoms. Urine culture ultimately grew pansensitive E coli and she was placed on Macrobid. Since being home, for the past several days, she has been feeling weak, lethargic, sleeping more so her family brought her here. Upon arrival here, Na noted to be 128 and AST and ALT are noted to be elevated. Prior to this, she was last seen in the hospital from 12/11-12/12/21 where she was evaluated for chest pain and was discharged home after a negative workup. Principal Diagnosis Pansensitive E coli UTI Dehydration Hyponatremia Acute metabolic encephalopathy Transaminitis Discharge Exam Pleasant, cooperative Respiratory Breathing comfortably on room air, no wheezing/rhonchi/rales Cardiovascular Regular rate and rhythm, no murmurs/rubs/gallops Gastrointestinal (Abdomen) soft, non tender Musculoskeletal No edema Neurologic Awake, alert, spontaneously moving extremities Discharge Data Allergies Allergy/AdvReac Type Severity Reaction Status Date / Time morphine Allergy Severe STOPS Verified 12/17/21 15:29 BREATHING moxifloxacin Allergy Intermediate CONFUSION/NIGHT Verified 12/17/21 15:29 CRANE bacitracin Allergy Mild Rash Verified 12/17/21 15:29 polymyxin B Allergy Mild Rash Verified 12/17/21 15:29 tramadol Allergy Unknown CAN'T Verified 12/17/21 15:29 REMEMBER fluorouracil AdvReac Intermediate didn't Verified 12/17/21 15:29 feel good CHIRAG CREAM AdvReac Severe WENT Uncoded 12/17/21 15:29 BALISTIC Consultations 12/17/21 18:14 ED Decision to Admit Stat Ordered Studies 12/17/21 17:02 CT abd pelvis wo con Stat Hospital Course (1) E. coli UTI: (2) Acute metabolic encephalopathy: (3) Hyponatremia: (4) Generalized weakness: (5) Transaminitis: Pansensitive E coli UTI -failed outpatient therapy -No evidence of sepsis, blood cultures negative -was on Macrobid outpatient, uncertain if she was actually taking it -Finished 3 days ceftriaxone here Hyponatremia -likely in setting of poor oral intake due to recent illness -resolved with IVF Acute metabolic encephalopathy -in setting of UTI, also with underlying mild cognitive impairment and dehydration -resolved Generalized weakness -PT cleared to return home. Family with concerns about patient returning home. Patient agreeable to home care services to be set up Transaminitis -Elevated AST and ALT, normal T bili, normal Alk Phos -Patient is status post cholecystectomy. Pattern of LFT elevation not consistent with retained stone. Likely transaminitis in setting of acute illness vs statin induced -LFTs improved and near normal at discharge HTN -Home losartan/HCTZ held here due to dehydration/hyponatremia. At discharge, w ould resume losartan 50mg daily, to decrease risk of dehydration HCTZ was discontinued (patient admittedly only drinks coffee, drinks very little water) HLD -Atorvastatin held and discontinued at discharge due to transaminitis -follow up with PCP for further management. Consideration of pravastatin as alternative. Daughter, Dana, was updated on medication changes and discharge plan. Message sent to PCP for update on medication changes Home Health Attestation I certify that this patient is under my care and that I, or a physicians clinical physician assistant working with me, had a face to-face encounter that meets the home health [id number] encounter requirements with this patient. The encounter with the patient was in whole, or in part, for the following medical condition, which is the primary reason for home health care (list medical condition): I certify that, based on my findings, the following services are medically necessary home health services: My clinical findings support the need for the above services because: Further, I certify that my clinical findings support that this patient is homebound (i.e. absences from home require considerable and taxing effort and are for medical reasons or mandaen services or infrequently or of short duration when for other reasons) because: Certification for Home Health Services: Based on the above findings, I certify that this patient is confined to the home and needs intermittent custodial care, physical therapy and/or speech therapy or continues to need occupational therapy. The patient is under my care, and I have initiated the establishment of the plan of care. This patient will be followed by a physician who will periodically review the plan of care. Total Time Total Time Spent Total Time Spent (In Minutes): 40 Discharge Plan Discharge Items Patient Disposition: Home - Home Health Services Reason For Visit: UTI Discharge Diagnosis: Pansensitive E coli UTI Dehydration Hyponatremia Acute metabolic encephalopathy Condition on Discharge: Good Activity: Resume your previous activity Driving/Machine Use: Resume 3 days after discharge Non-emergency contact: Primary Care Provider Call non-emergency contact if: you have any medication questions, your symptoms worsen and you have a fever Follow-up/Referrals: Gucci Benjamin MD [Primary Care Provider] - 12/24/21 11:00 am (Date & Time 12/24/2021 11:00 AM Provider Gucci Benjamin MD Department [facility] ) Diet: Heart Healthy Diet Comment: Drink plenty of fluids Addtl Attending Provider Instructions: You came to the hospital for weakness and confusion with a recent UTI infection You were also found to have dehydration You received IV fluids and 3 days of IV ceftriaxone here. You do not need further antibiotics. You were seen by Physical Therapy and may return home. We are setting up Home Care-- Visiting RN and PT. They will contact you to schedule a visit You can stop the Macrobid (prior antibiotic for your UTI) Because of your recent dehydration, upon discharge, your blood pressure will be changed to: Losartan 25mg daily. HCTZ-Losartan will be discontinued (the HCTZ component can cause dehydration) Your liver enzymes (AST, ALT) were mildly elevated. Because of this, your atorvastatin will be discontinued. Please follow up with your primary care doctor for your residential blood pressure and cholesterol management. Pending Studies at Discharge: No Stand-Alone Forms: [facility], Smoking Cessation Medications and DC Order Prescriptions: New losartan 25 mg tablet 25 mg PO DAILY Qty: 30 RF: 1 Continued cyanocobalamin (vitamin B-12) [Vitamin B-12] 500 mcg Tablet 500 mcg PO DAILY RF: 0 ascorbic acid (vitamin C) [Vitamin C] 500 mg Tablet 500 mg PO DAILY RF: 0 cholecalciferol (vitamin D3) [Vitamin D3] 1,000 unit Tablet 1,000 mg PO DAILY RF: 0 biotin 5 mg Tablet 2.5 mg PO DAILY RF: 0 atenolol 25 mg Tablet 12.5 mg PO DAILY RF: 0 aspirin 81 mg Tablet,Delayed Release (Dr/Ec) 81 mg PO DAILY RF: 0 Premarin 0.625 mg/gram cream 0.625 mg vaginal DIRECTED RF: 0 triamcinolone acetonide 0.1 % ointment 1 applic TOPICAL DIRECTED PRN (Reason: Skin Irritation) RF: 0 diclofenac sodium 1 % Gel 2 g TOPICAL DIRECTED PRN (Reason: Pain) RF: 0 nitroglycerin [Nitrostat] 0.4 mg Tablet, Sublingual 0.4 mg sublingual Q5M PRN (Reason: chest pain) 30 Days Qty: 60 RF: 0 Discontinued atorvastatin 10 mg tablet 10 mg PO DAILY RF: 0 losartan-hydrochlorothiazide 50-12.5 mg tablet 0.5 tab PO DAILY RF: 0 nitrofurantoin monohyd/m-cryst [Macrobid] 100 mg capsule 100 mg PO BID 7 Days Qty: 14 RF: 0 Discharge Orders: Discharge Order (Routine); Ordered 12/19/21 Ordered By: Li Recinos/Other Patient Handouts: UTIs Understanding Admission Data Admit Date/Time: 12/17/21 19:14 Attending Provider: Jer Howe Admit Provider: Li Panda Primary Care Provider: Gucci Benjamin Other Providers: Li Panda
[2021-12-19] MEDS ORDERED: Nursing to Pharmacy Communication SCH (11:15)
[2021-12-19] MEDS: cefTRIAXone SODIUM 1,000 MG in DEXTROSE 5% 50 ML IV SCH (14:21)
== END 2021-12-19 16:57 | disposition home health service (06) | DRG 689 ==
LOC: ED 14:59 → SUATTDRO 19:14 → 3W 19:14

== ENCOUNTER 2022-01-12 23:39 | Inpatient (IN) ==
--- NOTE | 2022-01-13 00:19 | Emergency Department Note ---
History of Present Illness General Chief complaint: Weakness Stated complaint: Weakness Time Seen by Provider: 01/12/22 23:52 Source: patient, family (Daughter who is at the bedside), RN notes reviewed and old records reviewed Mode of arrival: EMS Limitations: no limitations History of Present Illness This patient is an 86-year-old female who comes in after being brought in by EMS. She had episode where she was weak and out of it when they arrived. Her called her daughter around 10:00 because she was not feeling well she was nauseated. The patient remembers being on the toilet. She may have also taken a nitroglycerin. When they checked her she was out of it and diffusely weak but had stable vital signs her blood sugar was okay. She is feeling a lot better now. Her daughter says she has had increasing confusion subacutely. She is had no fall or trauma no headache. No change in vision. She has some low back pain although that seems to be nonacute her lips felt tingly bilaterally but now feel better. No difficulty speaking or swallowing no neck pain or stiffness. No chest pain shortness breath or pleurisy. No abdominal pain. No dysuria hematuria. No blood or melena in her stool. She feels significantly better right now Home Medications Medication Instructions Recorded Confirmed Type ascorbic acid (vitamin C) 500 mg 500 mg PO DAILY 10/08/18 01/13/22 History tablet (Vitamin C) biotin 5 mg tablet 2.5 mg PO DAILY 10/08/18 01/13/22 History cholecalciferol (vitamin D3) 25 1,000 mg PO DAILY 10/08/18 01/13/22 History mcg (1,000 unit) tablet (Vitamin D3) cyanocobalamin (vitamin B-12) 500 500 mcg PO DAILY 10/08/18 01/13/22 History mcg tablet (Vitamin B-12) atenolol 25 mg tablet 12.5 mg PO DAILY 07/03/20 01/13/22 History aspirin 81 mg tablet,delayed 81 mg PO DAILY 12/11/21 01/13/22 History release conjugated estrogens 0.625 mg/gram 0.625 mg VAGINAL DIRECTED 12/11/21 01/13/22 History vaginal cream (Premarin) diclofenac sodium 1 % topical gel 2 g TOPICAL DIRECTED PRN 12/11/21 01/13/22 History triamcinolone acetonide 0.1 % 1 applic TOPICAL DIRECTED PRN 12/11/21 01/13/22 History topical ointment atorvastatin 10 mg tablet 10 mg PO DAILY 12/24/21 01/13/22 History losartan 50 mg-hydrochlorothiazide 0.5 tab PO QAM 12/24/21 01/13/22 History 12.5 mg tablet Allergies Allergy/AdvReac Type Severity Reaction Status Date / Time morphine Allergy Severe STOPS Verified 01/13/22 00:26 BREATHING moxifloxacin Allergy Intermediate CONFUSION/NIGHT Verified 01/13/22 00:26 CRANE bacitracin Allergy Mild Rash Verified 01/13/22 00:26 polymyxin B Allergy Mild Rash Verified 01/13/22 00:26 tramadol Allergy Unknown CAN'T Verified 01/13/22 00:26 REMEMBER fluorouracil AdvReac Intermediate didn't Verified 01/13/22 00:26 feel good CHIRAG CREAM AdvReac Severe WENT Uncoded 01/13/22 00:26 BALISTIC Past Med/Surg History Medical History Acute UTI Asthma Encephalopathy, metabolic Exertional chest pain Factor V Leiden, prothrombin gene mutation Failure of outpatient treatment High blood pressure Hyperlipidemia Left arm pain Precordial chest pain TIA (transient ischemic attack) Surgical History Hx of cholecystectomy S/P appy S/P cataract extraction S/P spinal surgery Family History Brother Lung cancer Father Lung cancer Sister Pancreatic cancer Social History Smoking Status: Unknown if ever smoked Second Hand Exposure: No; Hx Alcohol Use: Yes Alcohol type: wine Alcohol Intake Frequency: Monthly or Less Hx Substance Use: No Preferred Language: Niuean Communication Ability: Effective [employer] Associate Required: No Beliefs That Will Affect Care: None marital status: Current Living Situation: Spouse How many Children do You have: 4 Feels Safe at Home: Yes Assistive Devices: Walker Review of Systems A total of 10 systems reviewed and were otherwise negative Physical Exam Vital Signs Vital Signs - 24 hr 01/13/22 00:03 01/13/22 02:00 Temperature 36.8 C 36.9 C Temperature Source Oral Oral Pulse Rate 71 Pulse Rate [Apical] 71 73 Pulse Rhythm Regular Pulse Rhythm [Apical] Regular Regular Pulse Strength Normal Pulse Strength [Apical] Normal Normal Respiratory Rate 18 18 Respiratory Effort / Characteristics Non-Labored Spontaneous Non-Labored Spontaneous Respiratory Depth Normal Normal Respiratory Pattern Regular Regular Blood Pressure 125/76 Blood Pressure [Right Arm] 125/76 112/56 L Blood Pressure Mean 92 Blood Pressure Mean [Right Arm] 92 74 Blood Pressure Position Lying Blood Pressure Position [Right Arm] Lying Lying Pulse Oximetry 97 95 Oxygen Delivery Method Room Air Room Air Sepsis Recent Fever Within 48 Hours No Sepsis New/Unexplained Change in Mental Status Yes Sepsis Action Taken by Nursing No Action Required General: Well developed well nourished slender older female who appears in no acute distress, breathing comfortably on room air. Normal speech. She is alert and oriented to person place month and year and answers most questions appropriately HEENT: Normal cephalic atraumatic. Pupils are equal round and reactive to light. Extraocular movements are intact. Oropharynx is pink with moist mucous membranes. No swelling of the mouth lips or tongue. Clear anicteric. No nystagmus. Neck: Supple with a midline trachea. No meningeal signs or stiffness, no JVD or bruits. No Stridor. Chest: Clear to auscultation bilaterally. No wheezes or rhonchi. No increased work of breathing. Heart: Regular rate and rhythm without murmurs or gallops. Abdomen: Soft nontender, nondistended without rebound guarding or rigidity. Extremities: No cyanosis clubbing or edema. No calf tenderness or assymetry Spine/Back. Non tender to palpation. No CVA tenderness Skin: Good turgor without rashes. Neurologic exam: Cranial nerves two through 12 are intact. Motor and sensation are intact and symmetrical throughout. No pronator drift. No tremor. Medical Decision Making Differential Diagnosis Vasovagal episode, syncope, medication side effect, stroke, TIA, spinal disease, UTI, electrolyte or metabolic abnormality, sepsis Medical Records Attestation: I reviewed the patient's medical records. Home Medications Current Medication List: was personally reviewed by me Laboratory Data Attestation: I reviewed the patient's lab results. Result diagrams: 01/12/22 23:45 01/12/22 23:45 Lab Results 01/12/22 01/12/22 01/12/22 Range/Units 23:45 23:45 23:45 WBC 6.67 (4.8-10.8) K/uL RBC 3.99 L (4.2-5.4) M/uL Hgb 12.3 (12.0-16.0) g/dL Hct 37.6 (37-47) % MCV 94.2 (80-100) fL MCH 30.8 (25-34) pg MCHC 32.7 (32-36) g/dL RDW Std Deviation 48.4 H (36.4-46.3) fL RDW Coeff of Byron 14.1 (11.5-14.5) % Plt Count 199 (130-400) K/uL MPV 10.4 (7.4-10.4) fL Immature Gran % (Auto) 0.1 % Neut % (Auto) 59.1 % Lymph % (Auto) 20.5 % Glades % (Auto) 11.7 % Eos % (Auto) 8.2 % Baso % (Auto) 0.4 % Neut # (Auto) 3.93 (1.4-6.5) K/uL Lymph # (Auto) 1.37 (1.2-3.4) K/uL Glades # (Auto) 0.78 H (0.11-0.59) K/uL Eos # (Auto) 0.55 H (0-0.5) K/uL Baso # (Auto) 0.03 (0-0.2) K/uL Immature Gran # (Auto) 0.01 (0.00-0.02) K/uL PT 10.7 (9.0-12.0) Seconds INR 1.0 (0.9-1.1) APTT 22.6 (21.0-31.0) Seconds PTT Ratio 0.8 Sodium 138 (136-145) mmol/L Potassium 4.0 (3.5-5.1) mmol/L Chloride 104 (98-107) mmol/L Carbon Dioxide 28 (21-32) mmol/L Anion Gap 6 (3-11) BUN 15 (6-23) mg/dl Creatinine 1.19 (0.6-1.2) mg/dl Est Cr Clr Drug Dosing Not Reportable Est GFR ( Amer) 47.2 ml/min Est GFR (Non-Af Amer) 40.7 ml/min BUN/Creatinine Ratio 12.6 (10-20) Glucose 122 H (70-99(Fasting)) mg/dl Lactate (0.4-2.0) mmol/L Calcium 8.7 (8.5-10.1) mg/dl Magnesium 1.9 (1.7-2.4) mg/dl Total Bilirubin 0.5 (0.2-1.0) mg/dl AST 18 (13-39) U/L ALT 12 (7-52) U/L Alkaline Phosphatase 47 (34-104) U/L Troponin I High Sens 4.8 (0-14) pg/ml Total Protein 5.9 L (6.0-8.3) gm/dl Albumin 3.6 (3.4-5.0) gm/dl Globulin 2.3 L (2.5-4.0) gm/dl Albumin/Globulin Ratio 1.6 (0.9-2) TSH (0.300-4.500) uIu/ml Free T4 (0.61-1.60) ng/dl Urine Color Urine Appearance (Clear) Urine pH (4.5-7.5) Ur Specific Mammoth (1.000-1.030) Urine Protein (Negative) Urine Glucose (UA) (Negative) Urine Ketones (Negative) Urine Blood (Negative) Urine Nitrite (Negative) Urine Bilirubin (Negative) Urine Urobilinogen (Negative) Ur Leukocyte Esterase (Negative) Urine WBC (Auto) (0-5) /hpf Urine RBC (Auto) (0-4) /hpf U Hyaline Cast (Auto) (0-5) /lpf U Epithel Cells (Auto) (0-5) /lpf Urine Bacteria (Auto) (Negative) SARS-CoV-2, RNA, NAAT (NEGATIVE) 01/12/22 01/13/22 01/13/22 Range/Units 23:45 00:40 00:41 WBC (4.8-10.8) K/uL RBC (4.2-5.4) M/uL Hgb (12.0-16.0) g/dL Hct (37-47) % MCV (80-100) fL MCH (25-34) pg MCHC (32-36) g/dL RDW Std Deviation (36.4-46.3) fL RDW Coeff of Byron (11.5-14.5) % Plt Count (130-400) K/uL MPV (7.4-10.4) fL Immature Gran % (Auto) % Neut % (Auto) % Lymph % (Auto) % Glades % (Auto) % Eos % (Auto) % Baso % (Auto) % Neut # (Auto) (1.4-6.5) K/uL Lymph # (Auto) (1.2-3.4) K/uL Glades # (Auto) (0.11-0.59) K/uL Eos # (Auto) (0-0.5) K/uL Baso # (Auto) (0-0.2) K/uL Immature Gran # (Auto) (0.00-0.02) K/uL PT (9.0-12.0) Seconds INR (0.9-1.1) APTT (21.0-31.0) Seconds PTT Ratio Sodium (136-145) mmol/L Potassium (3.5-5.1) mmol/L Chloride (98-107) mmol/L Carbon Dioxide (21-32) mmol/L Anion Gap (3-11) BUN (6-23) mg/dl Creatinine (0.6-1.2) mg/dl Est Cr Clr Drug Dosing Est GFR ( Amer) ml/min Est GFR (Non-Af Amer) ml/min BUN/Creatinine Ratio (10-20) Glucose (70-99(Fasting)) mg/dl Lactate 1.5 (0.4-2.0) mmol/L Calcium (8.5-10.1) mg/dl Magnesium (1.7-2.4) mg/dl Total Bilirubin (0.2-1.0) mg/dl AST (13-39) U/L ALT (7-52) U/L Alkaline Phosphatase (34-104) U/L Troponin I High Sens (0-14) pg/ml Total Protein (6.0-8.3) gm/dl Albumin (3.4-5.0) gm/dl Globulin (2.5-4.0) gm/dl Albumin/Globulin Ratio (0.9-2) TSH 4.858 H (0.300-4.500) uIu/ml Free T4 0.68 (0.61-1.60) ng/dl Urine Color Urine Appearance (Clear) Urine pH (4.5-7.5) Ur Specific Mammoth (1.000-1.030) Urine Protein (Negative) Urine Glucose (UA) (Negative) Urine Ketones (Negative) Urine Blood (Negative) Urine Nitrite (Negative) Urine Bilirubin (Negative) Urine Urobilinogen (Negative) Ur Leukocyte Esterase (Negative) Urine WBC (Auto) (0-5) /hpf Urine RBC (Auto) (0-4) /hpf U Hyaline Cast (Auto) (0-5) /lpf U Epithel Cells (Auto) (0-5) /lpf Urine Bacteria (Auto) (Negative) SARS-CoV-2, RNA, NAAT NEGATIVE (NEGATIVE) 01/13/22 Range/Units 01:50 WBC (4.8-10.8) K/uL RBC (4.2-5.4) M/uL Hgb (12.0-16.0) g/dL Hct (37-47) % MCV (80-100) fL MCH (25-34) pg MCHC (32-36) g/dL RDW Std Deviation (36.4-46.3) fL RDW Coeff of Byron (11.5-14.5) % Plt Count (130-400) K/uL MPV (7.4-10.4) fL Immature Gran % (Auto) % Neut % (Auto) % Lymph % (Auto) % Glades % (Auto) % Eos % (Auto) % Baso % (Auto) % Neut # (Auto) (1.4-6.5) K/uL Lymph # (Auto) (1.2-3.4) K/uL Glades # (Auto) (0.11-0.59) K/uL Eos # (Auto) (0-0.5) K/uL Baso # (Auto) (0-0.2) K/uL Immature Gran # (Auto) (0.00-0.02) K/uL PT (9.0-12.0) Seconds INR (0.9-1.1) APTT (21.0-31.0) Seconds PTT Ratio Sodium (136-145) mmol/L Potassium (3.5-5.1) mmol/L Chloride (98-107) mmol/L Carbon Dioxide (21-32) mmol/L Anion Gap (3-11) BUN (6-23) mg/dl Creatinine (0.6-1.2) mg/dl Est Cr Clr Drug Dosing Est GFR ( Amer) ml/min Est GFR (Non-Af Amer) ml/min BUN/Creatinine Ratio (10-20) Glucose (70-99(Fasting)) mg/dl Lactate (0.4-2.0) mmol/L Calcium (8.5-10.1) mg/dl Magnesium (1.7-2.4) mg/dl Total Bilirubin (0.2-1.0) mg/dl AST (13-39) U/L ALT (7-52) U/L Alkaline Phosphatase (34-104) U/L Troponin I High Sens (0-14) pg/ml Total Protein (6.0-8.3) gm/dl Albumin (3.4-5.0) gm/dl Globulin (2.5-4.0) gm/dl Albumin/Globulin Ratio (0.9-2) TSH (0.300-4.500) uIu/ml Free T4 (0.61-1.60) ng/dl Urine Color Yellow Urine Appearance Clear (Clear) Urine pH 8.5 H (4.5-7.5) Ur Specific Mammoth 1.012 (1.000-1.030) Urine Protein Negative (Negative) Urine Glucose (UA) Negative (Negative) Urine Ketones Negative (Negative) Urine Blood Negative (Negative) Urine Nitrite Negative (Negative) Urine Bilirubin Negative (Negative) Urine Urobilinogen Negative (Negative) Ur Leukocyte Esterase 2+ H (Negative) Urine WBC (Auto) >30 H (0-5) /hpf Urine RBC (Auto) 10-30 H (0-4) /hpf U Hyaline Cast (Auto) 1-5 (0-5) /lpf U Epithel Cells (Auto) 10-20 H (0-5) /lpf Urine Bacteria (Auto) Negative (Negative) SARS-CoV-2, RNA, NAAT (NEGATIVE) Imaging Data Attestation: I personally reviewed and interpreted this imaging study as follows: My Impression: Chest x-rayno acute infiltrate, failure, pneumothorax seen Head CTno acute hemorrhage or mass or abnormality seen upon my interpretation CT of the abdomen and pelvisthere is a large amount material within the stomach but no definite bowel obstruction Radiologist's Impression: Stat rad CAT scans CT HEAD: Comparison to July 03, 2020. There is mild cerebral atrophy and periventricular white matter low density consistent with chronic small vessel disease and/or senescent changes, unchanged. There is no evidence of acute large vessel infarct or intracranial hemorrhage. CT ABDOMEN & PELVIS Without Contrast: The kidneys appear within normal limits. No hydrone phrosis or ureterolithiasis is seen for the urinary bladder is partially distended and unremarkable. The appendix is no visible. Bowel loops are nondilated. There is a moderate amount of stool within the right colon measuring up to 4.5 cm which is within normal limits. There is diverticulosis of the sigmoid colon. No pneumoperitoneum, free fluid, or acute inflammatory changes are seen involving the bowel. Previous cholecystectomy. The liver, pancreas, spleen, and adrenal glands are unremarkable. The aorta is heavily calcified but nondilated. The uterus appears to have been removed. No free fluid in the pelvis. Degenerative changes in the spine. No acute fractures are identified. CT L SPINE: Multilevel degenerative changes throughout the lumbar spine measuring up to 34 scoliosis. There is an old healed compression fracture of L1. T12-L1 ACAs but no spinal stenosis is seen. Moderate degenerative changes at L1-2, L2- 3, and L5-S1. No acute fracture or significant spinal stenosis is identified. Radiologist: Dennis Claros MD Phone: [phone] ECG Data Attestation: I personally reviewed and interpreted this ECG as follows: Indication: + weakness Rate (beats per minute): 78 Rhythm: + normal sinus ECG Intervals/blocks: + Normal QRS and + Normal QT ECG Harmony: + Normal ECG ST segments: + Normal ST segments ECG Findings: no PACs or no PVCs Comparison ECG Date: from (12/24/21) Change: no significant change MDM Narrative This patient comes in as described above. She is brought in by ambulance after having some weakness. she is feeling better at present and her symptoms are nonf ocal. A significant neurologic, cardiac, metabolic, infectious work-up was obtained. I did talk to her daughter Dana at length as well who is at the bedside. I did order CAT scan of her head as well as a CAT scan of her back and abdomen she does get frequent UTIs apparently blood work was obtained as well as urinalysis and culture and COVID testing. EKG was also obtained. EKG does not suggest acute coronary syndrome or arrhythmia. She has no white count or fever to suggest infection/sepsis. Chest x-ray was unremarkable. She has no significant electrolyte or metabolic abnormalities. Troponin was not elevated. Her urinalysis suggest a possible UTI but is not definitive. Its talk to the daughter she may have taken a nitroglycerin when feeling nauseated after eating is possible this could have caused her symptoms as well. COVID testing was negative. Given her symptoms I do think she needs to be admitted/observed and have consulted to see her in ER for these measures Continuous cardiac monitoring: Orders placed in EMR for continuous cardiac monitoring. Upon my interpretation the patient was noted to be in normal sinus rhythm with a rate of 75. Impression & Plan Syncope, Weakness, Nausea, Lab test negative for COVID-19 virus Discharge Plan Visit Data Chief Complaint: Weakness Stated Complaint: Weakness ED Provider: Davy Drew Discharge Problem: Syncope, Weakness, Nausea, Lab test negative for COVID-19 virus Forms Stand Alone Forms: My [facility] Prescriptions Prescriptions: No Action cyanocobalamin (vitamin B-12) [Vitamin B-12] 500 mcg Tablet 500 mcg PO DAILY RF: 0 ascorbic acid (vitamin C) [Vitamin C] 500 mg Tablet 500 mg PO DAILY RF: 0 cholecalciferol (vitamin D3) [Vitamin D3] 1,000 unit Tablet 1,000 mg PO DAILY RF: 0 biotin 5 mg Tablet 2.5 mg PO DAILY RF: 0 atenolol 25 mg Tablet 12.5 mg PO DAILY RF: 0 atorvastatin 10 mg tablet 10 mg PO DAILY RF: 0 losartan-hydrochlorothiazide 50-12.5 mg tablet 0.5 tab PO QAM RF: 0 aspirin 81 mg Tablet,Delayed Release (Dr/Ec) 81 mg PO DAILY RF: 0 Premarin 0.625 mg/gram cream 0.625 mg vaginal DIRECTED RF: 0 triamcinolone acetonide 0.1 % ointment 1 applic TOPICAL DIRECTED PRN (Reason: Skin Irritation) RF: 0 diclofenac sodium 1 % Gel 2 g TOPICAL DIRECTED PRN (Reason: Pain) RF: 0 Referrals Referrals: Gucci Benjamin MD [Primary Care Provider] - Discharge Problem: Syncope Qualifiers: Syncope type: unspecified Qualified Code(s): R55 - Syncope and collapse
[2022-01-13 00:31] LABS: Basophils # (auto) 0.03 K/uL (0-0.2); Basophils % (auto) 0.4 %; Eosinophils # (auto) 0.55 K/uL (0-0.5); Eosinophils % (auto) 8.2 %; Hematocrit (blood only) 37.6 % (37-47); Hemoglobin 12.3 g/dL (12.0-16.0); Immature Granulocytes # (auto) 0.01 K/uL (0.00-0.02); Immature Granulocytes % (auto) 0.1 %; Lymphocytes # (auto) 1.37 K/uL (1.2-3.4); Lymphocytes % (auto) 20.5 %; Mean Corpuscular Hemoglobin 30.8 pg (25-34); Mean Corpuscular Hgb Conc 32.7 g/dL (32-36); Mean Corpuscular Volume 94.2 fL (80-100); Mean Platelet Volume 10.4 fL (7.4-10.4); Monocytes # (auto) 0.78 K/uL (0.11-0.59); Monocytes % (auto) 11.7 %; Neutrophils # (auto) 3.93 K/uL (1.4-6.5); Neutrophils % (auto) 59.1 %; Platelet Count 199 K/uL (130-400); RDW Coefficient of Variation 14.1 % (11.5-14.5); RDW Standard Deviation 48.4 fL (36.4-46.3); Red Blood Count 3.99 M/uL (4.2-5.4); White Blood Count 6.67 K/uL (4.8-10.8)
[2022-01-13 00:52] LABS: Partial Thromboplastin Ratio 0.8; Partial Thromboplastin Time 22.6 Seconds (21.0-31.0); Prothrombin Time 10.7 Seconds (9.0-12.0)
[2022-01-13 00:53] LABS: Troponin I High Sensitivity 4.8 pg/ml (0-14)
[2022-01-13 01:02] LABS: Alanine Aminotransferase 12 U/L (7-52); Albumin Globulin Ratio 1.6 (0.9-2); Albumin Level 3.6 gm/dl (3.4-5.0); Alkaline Phosphatase 47 U/L (34-104); Anion Gap 6 (3-11); Aspartate Aminotransferase 18 U/L (13-39); BUN Creatinine Ratio 12.6 (10-20); Bilirubin,Total 0.5 mg/dl (0.2-1.0); Blood Urea Nitrogen 15 mg/dl (6-23); Calcium 8.7 mg/dl (8.5-10.1); Carbon Dioxide 28 mmol/L (21-32); Chloride 104 mmol/L (98-107); Est GFR (African American) 47.2 ml/min; Est GFR (Non-African American) 40.7 ml/min; Globulin 2.3 gm/dl (2.5-4.0); Glucose 122 mg/dl (70-99(Fasting)); Magnesium 1.9 mg/dl (1.7-2.4); Sodium 138 mmol/L (136-145); Total Protein 5.9 gm/dl (6.0-8.3)
[2022-01-13 01:13] LABS: Thyroid Stimulating Hormone 4.858 uIu/ml (0.300-4.500)
[2022-01-13 01:44] LABS: T4 Free Thyroxine 0.68 ng/dl (0.61-1.60)
[2022-01-13 02:06] LABS: Appearance Urine Clear (Clear); Bacteria Urine Automated Negative (Negative); Bilirubin Urine Negative (Negative); Blood Urine Negative (Negative); Color Urine Yellow; Glucose Urine UA Negative (Negative); Ketones Urine Negative (Negative); Leukocyte Esterase Urine 2+ (Negative); Nitrite Urine Negative (Negative); Protein Urine Negative (Negative); Specific Gravity Urine 1.012 (1.000-1.030); Urobilinogen Urine Negative (Negative); WBC Urine Automated >30 /hpf (0-5); pH Urine 8.5 (4.5-7.5)
--- NOTE | 2022-01-13 03:34 | History & Physical Report ---
Date of Service January 13, 2022 Assessment & Plan (1) Encephalopathy: Plan: Transient encephalopathy hx mild cognitive impairment as per records Multifactorial : Complicated UTI, no sepsis for now Hypovolemia, patient noted to be hypotensive by EMS at home Syncope possibly from orthostasis secondary to hypovolemia hypercoaguable state (stroke plus prothrombin gene mutation, history pulmonary embolism while on OCP as per records) hx CAD, chronic LBBB hypertension, BP currently on the lower side hyperlipidemia on statin Rx Hyperglycemia rule out DM Chronic anemia, hemoglobin better than baseline likely secondary to hemoconcentration Possible functional disability, recurrent hospital confinement and ER visits since last month, history of mild cognitive impairment Medical telemetry CS, Cefepime based on microbiologic history (hx enteric organisms and Pse udomonas on review of records0 Check orthostatic vitals IVF Hold home diuretic and losartan for now until BP improved. Continue low-dose beta-eusebio with hold parameters Check hemoglobin A1c PT OT eval DVT prophylaxis. Lovenox subcu Full code Patient daughter requesting updates from providers. Dana Sarkar, contact #[phone]. Text document was generated using [employer] voice recognition software. It may contain grammatical or spelling errors. Kindly contact undersigned for clarification of any documentation item in question. History of Present Illness Chief Complaint: possible UTI as per patient Confusion, weakness, syncope as per daughter Primary Care Provider: Gucci Benjamin MD History obtained from patient, family, and records. Patient is a fair historian. Medical history significant for her hypercoaguable state (stroke plus prothrombin gene mutation, history pulmonary embolism while on OCP as per records), CAD, chronic LBBB, hypertension, hyperlipidemia, chronic anemia (baseline hemoglobin 10-11), mild cognitive impairment. Two admissions last month. First admission was an overnight stay chest pain. ACS ruled out. Patient seen by cardiology. EF 55 to 60% on TTE, note of mild aortic valve sclerosis. Second admission was for weakness and lethargy attributed to pansensitive E. coli UTI. 3 weeks ago, patient seen at the ER for chest pain. Subsequently discharged. Patient not herself the last few days as per daughter. Somewhat confused. Forgetting to take her pills. Patient felt sick in her stomach yesterday around lunchtime. Appetite not too good as per patient Patient passed out while on the commode yesterday. Episode witnessed by patient's . Patient denies chest pain, SOB, cough, abdominal pain, dysuria, abnormal straining. No witnessed seizures or tongue biting. SBP 80s upon EMS arrival. Open bottle containing patient 's nitro medication noted to be close to patient. Patient not sure if she took 's medication by mistake. Patient brought to the ER for evaluation by EMS. Patient mentation currently much better as per daughter. MEDICAL HISTORY: As above. SURGICAL HISTORY: She has had cholecystectomy, appendectomy, hysterectomy, cataract surgeries, sinus surgery, orthopedic lower extremity surgery FAMILY HISTORY: There is a family history of strokes and hypercoagulable state. PERSONAL AND SOCIAL HISTORY: Nonsmoker. No chronic intake of alcoholic beverages. 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 Allergies Allergy/AdvReac Type Severity Reaction Status Date / Time morphine Allergy Severe STOPS Verified 01/13/22 00:26 BREATHING moxifloxacin Allergy Intermediate CONFUSION/NIGHT Verified 01/13/22 00:26 CRANE bacitracin Allergy Mild Rash Verified 01/13/22 00:26 polymyxin B Allergy Mild Rash Verified 01/13/22 00:26 tramadol Allergy Unknown CAN'T Verified 01/13/22 00:26 REMEMBER fluorouracil AdvReac Intermediate didn't Verified 01/13/22 00:26 feel good CHIRAG CREAM AdvReac Severe WENT Uncoded 01/13/22 00:26 BALISTIC Home Medications Medication Instructions Recorded Confirmed Type ascorbic acid (vitamin C) 500 mg 500 mg PO DAILY 10/08/18 01/13/22 History tablet (Vitamin C) biotin 5 mg tablet 2.5 mg PO DAILY 10/08/18 01/13/22 History cholecalciferol (vitamin D3) 25 1,000 mg PO DAILY 10/08/18 01/13/22 History mcg (1,000 unit) tablet (Vitamin D3) cyanocobalamin (vitamin B-12) 500 500 mcg PO DAILY 10/08/18 01/13/22 History mcg tablet (Vitamin B-12) atenolol 25 mg tablet 12.5 mg PO DAILY 07/03/20 01/13/22 History aspirin 81 mg tablet,delayed 81 mg PO DAILY 12/11/21 01/13/22 History release conjugated estrogens 0.625 mg/gram 0.625 mg VAGINAL DIRECTED 12/11/21 01/13/22 History vaginal cream (Premarin) diclofenac sodium 1 % topical gel 2 g TOPICAL DIRECTED PRN 12/11/21 01/13/22 History triamcinolone acetonide 0.1 % 1 applic TOPICAL DIRECTED PRN 12/11/21 01/13/22 History topical ointment atorvastatin 10 mg tablet 10 mg PO DAILY 12/24/21 01/13/22 History losartan 50 mg-hydrochlorothiazide 0.5 tab PO QAM 12/24/21 01/13/22 History 12.5 mg tablet Past Med/Surg History Medical History Acute UTI Asthma Encephalopathy, metabolic Exertional chest pain Factor V Leiden, prothrombin gene mutation Failure of outpatient treatment High blood pressure Hyperlipidemia Left arm pain Precordial chest pain TIA (transient ischemic attack) Surgical History Hx of cholecystectomy S/P appy S/P cataract extraction S/P spinal surgery Family History Brother Lung cancer Father Lung cancer Sister Pancreatic cancer Social History Smoking Status: Unknown if ever smoked Second Hand Exposure: No; Hx Alcohol Use: Yes Alcohol type: wine Alcohol Intake Frequency: Monthly or Less Hx Substance Use: No Preferred Language: Andorran Communication Ability: Effective 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 Beliefs That Will Affect Care: None marital status: Current Living Situation: Spouse How many Children do You have: 4 Feels Safe at Home: Yes Assistive Devices: Walker Review of Systems Review of Systems: As per HPI, all other systems reviewed and negative Physical Exam Physical Exam: GENERAL: Comfortable, oriented to month and year, pleasant, looks younger for stated age, no respiratory distress SKIN: Pallor, warm HEENT: Pale palpebral conjunctivae, no ptosis, dry buccal mucosa NECK : Supple, no tenderness CHEST : CTA, no tenderness HEART : RRR, no obvious murmurs ABDOMEN: Some distention, nontender EXTREMITIES : No LE swelling/tenderness, no other conspicuous deformities noted NEUROLOGIC : Coherent, oriented to month and year, no facial asymmetry, gait and stance not assessed Results & Data Results & Data ([place]) Vital Signs (Past 12 Hours) Vital Signs Temp Pulse Pulse Resp BP BP Pulse Ox 04/24/22 02:00 36.9 C 73 18 112/56 L 95 01/13/22 00:03 36.8 C 71 71 18 125/76 125/76 97 Laboratory Results Laboratory Results WBC 6.67 K/uL (4.8-10.8) 01/12/22 23:45 RBC 3.99 M/uL (4.2-5.4) L 01/12/22 23:45 Hgb 12.3 g/dL (12.0-16.0) 01/12/22 23:45 Hct 37.6 % (37-47) 01/12/22 23:45 MCV 94.2 fL (80-100) 01/12/22 23:45 MCH 30.8 pg (25-34) 01/12/22 23:45 MCHC 32.7 g/dL (32-36) 01/12/22 23:45 RDW Std Deviation 48.4 fL (36.4-46.3) H 01/12/22 23:45 RDW Coeff of [place] 14.1 % (11.5-14.5) 01/12/22 23:45 Plt Count 199 K/uL (130-400) 01/12/22 23:45 MPV 10.4 fL (7.4-10.4) 01/12/22 23:45 Immature Gran % (Auto) 0.1 % 01/12/22 23:45 Neut % (Auto) 59.1 % 01/12/22 23:45 Lymph % (Auto) 20.5 % 01/12/22 23:45 [place] % (Auto) 11.7 % 01/12/22 23:45 Eos % (Auto) 8.2 % 01/12/22 23:45 Baso % (Auto) 0.4 % 01/12/22 23:45 Neut # (Auto) 3.93 K/uL (1.4-6.5) 01/12/22 23:45 Lymph # (Auto) 1.37 K/uL (1.2-3.4) 01/12/22 23:45 [place] # (Auto) 0.78 K/uL (0.11-0.59) H 01/12/22 23:45 Eos # (Auto) 0.55 K/uL (0-0.5) H 01/12/22 23:45 Baso # (Auto) 0.03 K/uL (0-0.2) 01/12/22 23:45 Immature Gran # (Auto) 0.01 K/uL (0.00-0.02) 01/12/22 23:45 PT 10.7 Seconds (9.0-12.0) 01/12/22 23:45 INR 1.0 (0.9-1.1) 01/12/22 23:45 APTT 22.6 Seconds (21.0-31.0) 01/12/22 23:45 PTT Ratio 0.8 01/12/22 23:45 Sodium 138 mmol/L (136-145) 01/12/22 23:45 Potassium 4.0 mmol/L (3.5-5.1) 01/12/22 23:45 Chloride 104 mmol/L (98-107) 01/12/22 23:45 Carbon Dioxide 28 mmol/L (21-32) 01/12/22 23:45 Anion Gap 6 (3-11) 01/12/22 23:45 BUN 15 mg/dl (6-23) 01/12/22 23:45 Creatinine 1.19 mg/dl (0.6-1.2) 01/12/22 23:45 Est Cr Clr Drug Dosing Not Reportable 01/12/22 23:45 Est GFR ( Amer) 47.2 ml/min 01/12/22 23:45 Est GFR (Non-Af Amer) 40.7 ml/min 01/12/22 23:45 BUN/Creatinine Ratio 12.6 (10-20) 01/12/22 23:45 Glucose 122 mg/dl (70-99(Fasting)) H 01/12/22 23:45 Lactate 1.5 mmol/L (0.4-2.0) 01/13/22 00:41 Calcium 8.7 mg/dl (8.5-10.1) 01/12/22 23:45 Magnesium 1.9 mg/dl (1.7-2.4) 01/12/22 23:45 Total Bilirubin 0.5 mg/dl (0.2-1.0) 01/12/22 23:45 AST 18 U/L (13-39) 01/12/22 23:45 ALT 12 U/L (7-52) 01/12/22 23:45 Alkaline Phosphatase 47 U/L (34-104) 01/12/22 23:45 Troponin I High Sens 4.8 pg/ml (0-14) 01/12/22 23:45 Total Protein 5.9 gm/dl (6.0-8.3) L 01/12/22 23:45 Albumin 3.6 gm/dl (3.4-5.0) 01/12/22 23:45 Globulin 2.3 gm/dl (2.5-4.0) L 01/12/22 23:45 Albumin/Globulin Ratio 1.6 (0.9-2) 01/12/22 23:45 TSH 4.858 uIu/ml (0.300-4.500) H 01/12/22 23:45 Free T4 0.68 ng/dl (0.61-1.60) 01/12/22 23:45 Urine Color Yellow 01/13/22 01:50 Urine Appearance Clear (Clear) 01/13/22 01:50 Urine pH 8.5 (4.5-7.5) H 01/13/22 01:50 Ur Specific [place] 1.012 (1.000-1.030) 01/13/22 01:50 Urine Protein Negative (Negative) 01/13/22 01:50 Urine Glucose (UA) Negative (Negative) 01/13/22 01:50 Urine Ketones Negative (Negative) 01/13/22 01:50 Urine Blood Negative (Negative) 01/13/22 01:50 Urine Nitrite Negative (Negative) 01/13/22 01:50 Urine Bilirubin Negative (Negative) 01/13/22 01:50 Urine Urobilinogen Negative (Negative) 01/13/22 01:50 Ur Leukocyte Esterase 2+ (Negative) H 01/13/22 01:50 Urine WBC (Auto) >30 /hpf (0-5) H 01/13/22 01:50 Urine RBC (Auto) 10-30 /hpf (0-4) H 01/13/22 01:50 U Hyaline Cast (Auto) 1-5 /lpf (0-5) 01/13/22 01:50 U Epithel Cells (Auto) 10-20 /lpf (0-5) H 01/13/22 01:50 Urine Bacteria (Auto) Negative (Negative) 01/13/22 01:50 SARS-CoV-2, RNA, NAAT NEGATIVE (NEGATIVE) 01/13/22 00:[address] HEAD: Comparison to July 03, 2020. There is mild cerebral atrophyand periventricular white matter lowdensityconsistent with chronic small vessel disease and/or senescent changes, unchanged. There is no evidence of acute large vessel infarct or intracranial hemorrhage. CT ABDOMEN & PELVIS Without Contrast: The kidneys appear within normal limits. No hydronephrosis or ureterolithiasis is seen for the urinary bladder is partiallydistended and unremarkable. The appendix is no visible. Bowel loops are nondilated. There is a moderate amount of stool within the right colon measuring up to 4.5 cmwhich iswithin normal limits. There is diverticulosis of the sigmoid colon. No pneumoperitoneum, free fluid, or acute inflammatorychanges are seen involving the bowel. Previous cholecystectomy. The liver, pancreas, spleen, and adrenal glands are unremarkable. The aorta is heavilycalcified but nondilated. The uterus appears to have been removed. No free fluid in the pelvis. Degenerative changes in the spine. No acute fractures are identified. CT L SPINE: Multilevel degenerative changes throughout the lumbar spine measuring up to 34 scoliosis. There is an old healed compression fracture of L1. T12-L1 ACAs but no spinal stenosis is seen. Moderate degenerative changes at L1-2, L2-3, and L5-S1. No acute fracture or significant spinal stenosis is identified. Chest x-ray as per my interpretation no infiltrate EKG as per my interpretation : Rate 80, NSR, normal axis, no ischemia
[2022-01-13] MEDS ORDERED: SODIUM CHLORIDE 0.9% 1000ML 1,000 ML IV ONE (03:37)
[2022-01-13] MEDS ORDERED: CEFEPIME 2,000 MG/20 ML VIAL IV STA (04:26)
[2022-01-13 06:26] LABS: Basophils # (auto) 0.03 K/uL (0-0.2); Basophils % (auto) 0.5 %; Eosinophils # (auto) 0.61 K/uL (0-0.5); Eosinophils % (auto) 9.5 %; Hematocrit (blood only) 32.5 % (37-47); Hemoglobin 10.5 g/dL (12.0-16.0); Immature Granulocytes # (auto) 0.01 K/uL (0.00-0.02); Immature Granulocytes % (auto) 0.2 %; Lymphocytes # (auto) 1.69 K/uL (1.2-3.4); Lymphocytes % (auto) 26.4 %; Mean Corpuscular Hemoglobin 30.4 pg (25-34); Mean Corpuscular Hgb Conc 32.3 g/dL (32-36); Mean Corpuscular Volume 94.2 fL (80-100); Mean Platelet Volume 10.1 fL (7.4-10.4); Monocytes # (auto) 0.85 K/uL (0.11-0.59); Monocytes % (auto) 13.3 %; Neutrophils # (auto) 3.22 K/uL (1.4-6.5); Neutrophils % (auto) 50.1 %; Platelet Count 202 K/uL (130-400); RDW Standard Deviation 48.6 fL (36.4-46.3); Red Blood Count 3.45 M/uL (4.2-5.4); White Blood Count 6.41 K/uL (4.8-10.8)
[2022-01-13] MEDS ORDERED: PROMETHAZINE HCL 6.25 MG in SODIUM CHLORIDE 0.9% 50 ML IV PRN (06:34)
[2022-01-13] MEDS ORDERED: ACETAMINOPHEN 325 MG TAB PO PRN (06:34)
[2022-01-13 06:45] LABS: BUN Creatinine Ratio 21.9 (10-20); Calcium 8.2 mg/dl (8.5-10.1); Creatinine Clr Calc Pharmacy 33.5 ml/min; Est GFR (African American) 61.2 ml/min; Est GFR (Non-African American) 52.8 ml/min; Potassium 4.2 mmol/L (3.5-5.1)
[2022-01-13] MEDS ORDERED: PATIENT'S HEIGHT AND/OR WEIGHT NEEDED SCH (06:45)
--- NOTE | 2022-01-13 07:27 | CT Scan Report ---
LUMBAR SPINE CT CT DOSE: HISTORY: Back pain. weakness TECHNIQUE: Multiaxial CT images of the lumbar spine were performed and reformatted in the sagittal an d coronal plane without the use of contrast. A dose lowering technique was utilized adhering to the principles of ALARA. COMPARISON: None. FINDINGS: Moderate levoscoliosis of the lumbar spine. The T12 and L1 vertebral bodies are fused with an old moderate anterior wedge-shaped compression deformity at L1. No acute fracture or subluxation w ithin the lumbar spine. Afpa-[id number] degenerative disc disease and facet osteoarthritis seen with in the lumbar spine. Mild central canal narrowing at L4-L5 due to the degenerative changes. No high-g rade central canal stenosis by CT technique. Paravertebral soft tissues are unremarkable. There is a small hiatus hernia. IMPRESSION: Scoliosis and degenerative changes within the lumbar spine. No acute fractures ACT 112: Negative or not required by law. Electronically signed by: Rylan Rodas M.D. 01/13/2022 7:24 AM
--- NOTE | 2022-01-13 07:33 | CT Scan Report ---
HEAD CT NONCONTRAST CT DOSE: HISTORY: weakness TECHNIQUE: Multiaxial CT images of the head were performed without the use of intravenous contrast. A utomated exposure control was utilized for this study. A dose lowering technique was utilized adheri ng to the principles of ALARA. Comparison: Head CT 12/14/2021. Findings: The paranasal sinuses and mastoid air cells are clear. The calvarium and skull base are int act. There is no mass, hematoma, midline shift, acute infarct. White matter hypodensity is nonspecifi c but suggestive of microvascular ischemic change. The ventricles and sulci demonstrate mild age-rela miguelangel involutional changes. Postoperative changes again noted within the paranasal sinuses. Impression: No significant change compared to the prior study. No acute intracranial abnormality. ACT 112: Negative or not required by law. Electronically signed by: Rylan Rodas M.D. 01/13/2022 7:32 AM
[2022-01-13] MEDS: CYANOCOBALAMIN (B-12) 500 MCG TABLET PO SCH (08:19)
[2022-01-13] MEDS: ASPIRIN 81 MG ECTAB PO SCH (08:19)
[2022-01-13] MEDS: ATORVASTATIN 10 MG TAB PO SCH (08:19)
[2022-01-13] MEDS: ATENOLOL 25 MG TABLET PO SCH (08:20)
[2022-01-13] MEDS: ENOXAPARIN INJ 30 MG/0.3 ML SYR SQ SCH (08:20)
--- NOTE | 2022-01-13 08:29 | CT Scan Report ---
CT OF THE ABDOMEN AND PELVIS WITHOUT CONTRAST CLINICAL HISTORY: Back pain. Nausea. COMPARISON STUDY: CT of the abdomen and pelvis December 17, 2021. TECHNIQUE: Axial images of the abdomen and pelvis were obtained without IV contrast. Images were revi ewed in the axial, sagittal, and coronal planes. Automated exposure control was utilized for the deshawn dy. A dose lowering technique was utilized adhering to the principles of ALARA. FINDINGS: Please note that the lumbar spine CT will be reported separately. Lung bases are unremarkab le. No renal, ureteral or bladder calculus are present. There is no hydronephrosis or hydroureter. Ev aluation of the remainder of the abdomen and pelvis is suboptimal on this unenhanced examination. The liver, spleen, adrenal glands and pancreas are unremarkable. Is no biliary or pancreatic ductal dila tation. Gallbladder is not visualized. There is no peripancreatic infiltration. No evidence for a bow el obstruction. Sigmoid diverticulosis is noted without evidence for acute diverticulitis. 1.9 cm cys tic right adnexal lesion is noted. Although suboptimally assessed by CT, this favors a cyst. No pneum atosis, free air or portal venous gas is present. There is trace gas within the bladder. There is mil d bladder wall thickening, decreased since prior CT. There may be subtle left mesenteric stranding, s imilar to prior CT. The appendix is not visualized. No right lower quadrant inflammation. IMPRESSION: 1. No bowel obstruction. 2. Sigmoid diverticulosis without evidence for acute diverticulitis. 3. Mild bladder wall thickening, decreased since prior exam. ACT 112: Negative or not required by law. Electronically signed by: James Tucker M.D. 01/13/2022 8:27 AM
--- NOTE | 2022-01-13 09:13 | XRay Report ---
XR chest 1V portable CLINICAL HISTORY: weakness COMPARISON STUDY: Chest radiograph and chest CT December 24, 2021. FINDINGS: Lung volumes are normal. Lungs are clear. There is no pneumothorax or pleural effusion. Car diac size is normal. Mediastinal contours are normal. There is no evidence for pulmonary edema. IMPRESSION: No acute cardiopulmonary findings. ACT 112: Negative or not required by law. Electronically signed by: James Tucker M.D. 01/13/2022 9:12 AM
--- NOTE | 2022-01-13 11:58 | Electrocardiogram Report ---
Test Reason : Blood Pressure : / mmHG Vent. Rate : 078 BPM Atrial Rate : 078 BPM P-R Int : 182 ms QRS Dur : 082 ms QT Int : 402 ms P-R-T Axes : 065 019 069 degrees QTc Int : 458 ms Normal sinus rhythm Normal ECG When compared with ECG of 24-DEC-2021 10:53, No significant change was found Confirmed by Brennon Cruz ([id number]) on 01/13/2022 11:57:38 AM Referred By: REFERRED SELF Confirmed By:Brennon Cruz
[2022-01-13] MEDS ORDERED: CEFEPIME 2,000 MG in SYRINGE 0 ML IV SCH (13:00)
--- NOTE | 2022-01-13 15:07 | Hospitalist Progress Note ---
Date of Service January 13, 2022 Assessment & Plan Plan: UTI -Reports about 1 day of dysuria at home, then brought in for confusion and weakness -history of recurrent UTIs -continue cefepime, follow up urine culture -Patient will follow up with her urologist for urodynamic studies Acute metabolic encephalopathy -related to underlying UTI -resolved HTN -holding home losartan-HCTZ for now. continue atenolol HLD -statin History of TIA -continue aspirin DVT ppx -SQ lovenox Admission and Anticipated Discharge Date Admission Date: January 13, 2022 Subjective Patient feels well Denies fever/chills Frustrated that she gets recurrent UTIs, will see her Urologist after discharge Physical Exam Physical Exam: Pleasant, engaging, ambulating in room without dfficulty Respiratory: breathing comfortably on room air, no wheezing/rhonchi/rales Cardiovascular: regular rate and rhythm, no murmurs/rubs/gallops Gastrointestinal (Abdomen): soft, non tender Musculoskeletal: no edema Neurologic: awake, alert, answers questions appropriately Results & Data Results & Data ([facility]) Vital Signs (Past 12 Hours) Vital Signs Temp Pulse Pulse Pulse Resp BP Pulse Ox 01/13/22 11:22 36.3 C L 61 20 152/79 H 97 01/13/22 07:30 73 01/13/22 07:00 36.6 C 79 20 141/74 H 94 01/13/22 06:34 36.6 C 79 20 141/74 H 94 01/13/22 04:00 78 18 119/54 L 93 Pulse Ox 01/13/22 11:22 01/13/22 07:30 01/13/22 07:00 01/13/22 06:34 94 01/13/22 04:00 Laboratory Results Short CBC 01/12/22 01/13/22 Range/Units 23:45 06:01 WBC 6.67 6.41 (4.8-10.8) K/uL Hgb 12.3 10.5 L (12.0-16.0) g/dL Hct 37.6 32.5 L (37-47) % Plt Count 199 202 (130-400) K/uL BMP 01/12/22 01/13/22 23:45 06:01 Sodium 138 139 Potassium 4.0 4.2 Chloride 104 109 H Carbon Dioxide 28 25 BUN 15 21 Creatinine 1.19 0.96 Glucose 122 H 105 H Calcium 8.7 8.2 L Liver Function 01/12/22 Range/Units 23:45 Total Bilirubin 0.5 (0.2-1.0) mg/dl AST 18 (13-39) U/L ALT 12 (7-52) U/L Alkaline Phosphatase 47 (34-104) U/L Albumin 3.6 (3.4-5.0) gm/dl Urine 01/13/22 Range/Units 01:50 Urine Color Yellow Urine Appearance Clear (Clear) Urine pH 8.5 H (4.5-7.5) Ur Specific [place] 1.012 (1.000-1.030) Urine Protein Negative (Negative) Urine Glucose (UA) Negative (Negative) Medications Administered Current Inpatient Medications Acetaminophen (Acetaminophen 325 Mg Tab) 650 mg PO Q4H PRN PRN Reason: Pain or Fever Stop: 02/12/22 06:33 Aspirin (Aspirin 81 Mg Ectab) 81 mg PO DAILY KYLIE Stop: 02/12/22 08:59 Last Admin: 01/13/22 08:19 Dose: 81 mg Documented by: Atenolol (Atenolol 25 Mg Tablet) 12.5 mg PO DAILY KYLIE Stop: 02/12/22 08:59 Last Admin: 01/13/22 08:20 Dose: 12.5 mg Documented by: Atorvastatin Calcium (Atorvastatin 10 Mg Tab) 10 mg PO DAILY KYLIE Stop: 02/12/22 08:59 Last Admin: 01/13/22 08:19 Dose: 10 mg Documented by: Cyanocobalamin (Cyanocobalamin (B-12) 500 Mcg Tablet) 500 mcg PO DAILY KYLIE Stop: 02/12/22 08:59 Last Admin: 01/13/22 08:19 Dose: 500 mcg Documented by: Enoxaparin Sodium (Enoxaparin Inj 30 Mg/0.3 Ml Syr) 30 mg SQ QAM KYLIE Stop: 02/12/22 08:59 Last Admin: 01/13/22 08:20 Dose: 30 mg Documented by: Promethazine HCl 6.25 mg/ (Sodium Chloride) 50.25 mls @ 201 mls/hr IV Q6H PRN PRN Reason: Nausea And Vomiting Stop: 02/12/22 06:33 Cefepime HCl 1,000 mg/ Syringe 11.3 mls @ 5.5 mls/min IV Q12H [facility]; Protocol Stop: 01/23/22 16:59
[2022-01-13] MEDS: CEFEPIME 1,000 MG in SYRINGE 0 ML IV SCH (16:11)
[2022-01-14] MEDS ORDERED: CEFEPIME 1,000 MG in SYRINGE 0 ML IV SCH (04:00)
[2022-01-14] MEDS: CEFEPIME 1,000 MG in SYRINGE 0 ML IV SCH ×2 (06:11→16:51)
[2022-01-14 07:30] LABS: Estimated Average Glucose 120 mg/dl; Hemoglobin A1C 5.8 % (4.5-5.6)
[2022-01-14] MEDS: ATORVASTATIN 10 MG TAB PO SCH (08:33)
[2022-01-14] MEDS: CYANOCOBALAMIN (B-12) 500 MCG TABLET PO SCH (08:34)
[2022-01-14] MEDS: ASPIRIN 81 MG ECTAB PO SCH (08:34)
[2022-01-14] MEDS: ATENOLOL 25 MG TABLET PO SCH (08:34)
[2022-01-14] MEDS: ENOXAPARIN INJ 30 MG/0.3 ML SYR SQ SCH (08:35)
[2022-01-14] MEDS: LOSARTAN POTASSIUM 25 MG TAB PO SCH (08:40)
--- NOTE | 2022-01-14 14:31 | Hospitalist Progress Note ---
Date of Service January 14, 2022 Assessment & Plan (1) Encephalopathy: Plan: UTI -Reports about 1 day of dysuria at home, then brought in for confusion and weakness -history of recurrent UTIs -continue cefepime, urine culture now growing pseudomonas -Patient will follow up with her urologist for urodynamic studies Acute metabolic encephalopathy -related to underlying UTI -resolved HTN - home losartan-HCTZ , BP elevated. will resume losartan 25mg daily. continue atenolol HLD -statin History of TIA -continue aspirin DVT ppx -SQ lovenox Admission and Anticipated Discharge Date Admission Date: January 13, 2022 Subjective Patient feels well Remains afebrile Physical Exam Physical Exam: Pleasant, bright, engaging Respiratory: breathing comfortably on room air, no wheezing/rhonchi/rales Cardiovascular: regular rate and rhythm, no murmurs/rubs/gallops Gastrointestinal (Abdomen): soft, non tender Musculoskeletal: no edema Neurologic: awake, alert, spontaneously moving extremities Results & Data Results & Data ([facility]) Vital Signs (Past 12 Hours) Vital Signs Temp Pulse Pulse Resp BP BP Pulse Ox 01/14/22 11:00 35.9 C L 62 16 147/73 H 97 01/14/22 08:35 36.5 C 75 16 155/75 H 94 01/14/22 06:22 94 H 01/14/22 03:07 36.4 C L 71 20 152/84 H 93 Medications Administered Current Inpatient Medications Acetaminophen (Acetaminophen 325 Mg Tab) 650 mg PO Q4H PRN PRN Reason: Pain or Fever Stop: 02/12/22 06:33 Aspirin (Aspirin 81 Mg Ectab) 81 mg PO DAILY KYLIE Stop: 02/12/22 08:59 Last Admin: 01/14/22 08:34 Dose: 81 mg Documented by: Atenolol (Atenolol 25 Mg Tablet) 12.5 mg PO DAILY KYLIE Stop: 02/12/22 08:59 Last Admin: 01/14/22 08:34 Dose: 12.5 mg Documented by: Atorvastatin Calcium (Atorvastatin 10 Mg Tab) 10 mg PO DAILY KYLIE Stop: 02/12/22 08:59 Last Admin: 01/14/22 08:33 Dose: 10 mg Documented by: Cyanocobalamin (Cyanocobalamin (B-12) 500 Mcg Tablet) 500 mcg PO DAILY [facility] Stop: 02/12/22 08:59 Last Admin: 01/14/22 08:34 Dose: 500 mcg Documented by: Enoxaparin Sodium (Enoxaparin Inj 30 Mg/0.3 Ml Syr) [facility] Stop: 02/12/22 08:59 Last Admin: 01/14/22 08:35 Dose: 30 mg Documented by: Promethazine HCl 6.25 mg/ (Sodium Chloride) 50.25 mls @ 201 mls/hr IV Q6H PRN PRN Reason: Nausea And Vomiting Stop: 02/12/22 06:33 Cefepime HCl 1,000 mg/ Syringe 11.3 mls @ 5.5 mls/min IV Q12H [facility]; Protocol Stop: 01/23/22 16:59 Last Admin: 01/14/22 06:11 Dose: 5.5 mls/min Documented by: Losartan Potassium (Losartan Potassium 25 Mg Tab) 25 mg PO [facility] Stop: 02/13/22 08:59 Last Admin: 01/14/22 08:40 Dose: 25 mg Documented by:
[2022-01-15] MEDS: CEFEPIME 1,000 MG in SYRINGE 0 ML IV SCH ×2 (05:54→15:05)
[2022-01-15] MEDS: CYANOCOBALAMIN (B-12) 500 MCG TABLET PO SCH (08:07)
[2022-01-15] MEDS: ATORVASTATIN 10 MG TAB PO SCH (08:07)
[2022-01-15] MEDS: LOSARTAN POTASSIUM 25 MG TAB PO SCH (08:07)
[2022-01-15] MEDS: ATENOLOL 25 MG TABLET PO SCH (08:08)
[2022-01-15] MEDS: ENOXAPARIN INJ 30 MG/0.3 ML SYR SQ SCH (08:08)
[2022-01-15] MEDS: ASPIRIN 81 MG ECTAB PO SCH (08:08)
--- NOTE | 2022-01-15 11:05 | Discharge Summary ---
Date of Service January 15, 2022 Admission HPI Per Admitting Provider History obtained from patient, family, and records. Patient is a fair historian. Medical history significant for her hypercoaguable state (stroke plus prothrombin gene mutation, history pulmonary embolism while on OCP as per records), CAD, chronic LBBB, hypertension, hyperlipidemia, chronic anemia (baseline hemoglobin 10-11), mild cognitive impairment. Two admissions last month. First admission was an overnight stay chest pain. ACS ruled out. Patient seen by cardiology. EF 55 to 60% on TTE, note of mild aortic valve sclerosis. Second admission was for weakness and lethargy attributed to pansensitive E. coli UTI. 3 weeks ago, patient seen at the ER for chest pain. Subsequently discharged. Patient not herself the last few days as per daughter. Somewhat confused. Forgetting to take her pills. Patient felt sick in her stomach yesterday around lunchtime. Appetite not too good as per patient Patient passed out while on the commode yesterday. Episode witnessed by patient's . Patient denies chest pain, SOB, cough, abdominal pain, dysuria, abnormal straining. No witnessed seizures or tongue biting. SBP 80s upon EMS arrival. Open bottle containing patient 's nitro medication noted to be close to patient. Patient not sure if she took 's medication by mistake. Patient brought to the ER for evaluation by EMS. Patient mentation currently much better as per daughter. MEDICAL HISTORY: As above. SURGICAL HISTORY: She has had cholecystectomy, appendectomy, hysterectomy, cataract surgeries, sinus surgery, orthopedic lower extremity surgery FAMILY HISTORY: There is a family history of strokes and hypercoagulable state. PERSONAL AND SOCIAL HISTORY: Nonsmoker. No chronic intake of alcoholic beverages. 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 Principal Diagnosis Klebsiella UTI Acute metabolic encephalopathy Discharge Exam Patient feels well, feels back to normal Appears well, no acute distress Mucous membrane moist Breathing comfortably on room air, no wheezing/rhonchi Regular rate and rhythm, no murmurs/rubs/gallops Abdomen soft and non tender Extr no edema Discharge Data Allergies Allergy/AdvReac Type Severity Reaction Status Date / Time morphine Allergy Severe STOPS Verified 01/13/22 00:26 BREATHING moxifloxacin Allergy Intermediate CONFUSION/NIGHT Verified 01/13/22 00:26 CRANE bacitracin Allergy Mild Rash Verified 01/13/22 00:26 polymyxin B Allergy Mild Rash Verified 01/13/22 00:26 tramadol Allergy Unknown CAN'T Verified 01/13/22 00:26 REMEMBER fluorouracil AdvReac Intermediate didn't Verified 01/13/22 00:26 feel good CHIRAG CREAM AdvReac Severe WENT Uncoded 01/13/22 00:26 BALISTIC Consultations 01/13/22 03:26 ED Decision to Admit Stat Ordered Studies 01/13/22 00:03 CT head/brain wo con Urgent CT lumbar spine wo con Urgent 01/13/22 00:13 CT abd pelvis wo con Urgent Hospital Course (1) Encephalopathy: (2) UTI due to Klebsiella species: Mrs Beatriz Arce is a 86 year old female with history of recurrent UTI, hypertension, factor V Leiden gene mutation, TIA who lives at home with her was brought in for confusion and weakness found to have a UTI. UTI ultimately grew pansensitive pseudomonas. She received 3 days of cefepime while in the hospital. With treatment of her UTI, her confusion resolved and she was back to her baseline mental and functional state at discharge. She will go home with home health for visiting nurse for BP check and medication reconciliation. Her daughters will also help make arrangements for additional help for her and her (patient is reluctantly agreeable). Of note, on her prior hospitalization, her losartan-HCTZ was switched to losartan only to avoid dehydration. She can continue losartan 25mg daily and atenolol 12.5mg daily. Will need twice daily BP check and recording. Follow up with PCP for after visit care and further HTN management. These discharge instructions were provided to her daughter, Dana, with patient's consent. Home Health Attestation I certify that this patient is under my care and that I, or a physicians operations and intelligence assistant working with me, had a face to-face encounter that meets the home health [id number] encounter requirements with this patient. The encounter with the patient was in whole, or in part, for the following medical condition, which is the primary reason for home health care (list medical condition): I certify that, based on my findings, the following services are medically necessary home health services: My clinical findings support the need for the above services because: Further, I certify that my clinical findings support that this patient is homebound (i.e. absences from home require considerable and taxing effort and are for medical reasons or adventism services or infrequently or of short duration when for other reasons) because: Certification for Home Health Services: Based on the above findings, I certify that this patient is confined to the home and needs intermittent shelter care, physical therapy and/or speech therapy or continues to need occupational therapy. The patient is under my care, and I have initiated the establishment of the plan of care. This patient will be followed by a physician who will periodically review the plan of care. Total Time Total Time Spent Total Time Spent (In Minutes): 40 Discharge Plan Discharge Items Patient Disposition: Home - Home Health Services Reason For Visit: COMP UTI, SYNCOPE Discharge Diagnosis: Klebsiella UTI Acute metabolic encephalopathy (confusion) Condition on Discharge: Good Activity: Resume your previous activity Non-emergency contact: Primary Care Provider and Urologist Call non-emergency contact if: you have any medication questions, your symptoms worsen and you have a fever Follow-up/Referrals: Gucci Benjamin MD [Primary Care Provider] - (Date & Time 01/18/2022 3:20 PM Provider Gucci Benjamin MD Department Family [facility] ) Diet: Heart Healthy Addtl Attending Provider Instructions: You were admitted for a Urinary Tract Infection (UTI) and confusion You were found to have klebsiella growing in your urine You received 3 days of IV cefepime while in the hospital Please follow up with a Urologist for further testing to determine why you get such frequent UTIs On your last hospitalization, your Losartan-HCTZ was switched to just losartan. You can continue taking Losartan and Atenolol for your blood pressure but should monitor your BP two times a day (morning and evening) to ensure your BP is not too low on your medications at home You goal BP should be < 150/90 Pending Studies at Discharge: No Stand-Alone Forms: My [employer], Smoking Cessation Medications and DC Order Prescriptions: New losartan 25 mg Tablet 25 mg PO QAM 30 Days Qty: 30 RF: 0 Continued cyanocobalamin (vitamin B-12) [Vitamin B-12] 500 mcg Tablet 500 mcg PO DAILY RF: 0 ascorbic acid (vitamin C) [Vitamin C] 500 mg Tablet 500 mg PO DAILY RF: 0 cholecalciferol (vitamin D3) [Vitamin D3] 1,000 unit Tablet 1,000 mg PO DAILY RF: 0 biotin 5 mg Tablet 2.5 mg PO DAILY RF: 0 atenolol 25 mg Tablet 12.5 mg PO DAILY RF: 0 atorvastatin 10 mg tablet 10 mg PO DAILY RF: 0 aspirin 81 mg Tablet,Delayed Release (Dr/Ec) 81 mg PO DAILY RF: 0 Premarin 0.625 mg/gram cream 0.625 mg vaginal DIRECTED RF: 0 triamcinolone acetonide 0.1 % ointment 1 applic TOPICAL DIRECTED PRN (Reason: Skin Irritation) RF: 0 diclofenac sodium 1 % Gel 2 g TOPICAL DIRECTED PRN (Reason: Pain) RF: 0 Discontinued losartan-hydrochlorothiazide 50-12.5 mg tablet 0.5 tab PO QAM RF: 0 Discharge Orders: Discharge Order (Routine); Ordered 01/15/22 Ordered By: Li Recinos/Other Patient Handouts: A1C Admission Data Admit Date/Time: 01/13/22 05:20 Attending Provider: Li Panda Admit Provider: Russell Browning Primary Care Provider: Gucci Benjamin Other Providers: Russell Browning
== END 2022-01-15 15:59 | disposition home health service (06) | DRG 689 ==
LOC: ED 23:39 → 2N 01-13 05:20

== ENCOUNTER 2022-02-19 12:30 | Inpatient (IN) ==
[2022-02-19] MEDS ORDERED: ONDANSETRON INJ 2 MG/ML 2 ML VIAL IV STA (13:03)
[2022-02-19 13:45] LABS: Basophils # (auto) 0.01 K/uL (0-0.2); Basophils % (auto) 0.1 %; Eosinophils # (auto) 0.13 K/uL (0-0.5); Eosinophils % (auto) 1.1 %; Hemoglobin 12.6 g/dL (12.0-16.0); Immature Granulocytes # (auto) 0.03 K/uL (0.00-0.02); Immature Granulocytes % (auto) 0.2 %; Lymphocytes # (auto) 0.22 K/uL (1.2-3.4); Lymphocytes % (auto) 1.8 %; Mean Corpuscular Hemoglobin 29.8 pg (25-34); Mean Corpuscular Hgb Conc 33.2 g/dL (32-36); Mean Corpuscular Volume 89.8 fL (80-100); Mean Platelet Volume 10.2 fL (7.4-10.4); Monocytes # (auto) 0.14 K/uL (0.11-0.59); Monocytes % (auto) 1.1 %; Neutrophils # (auto) 11.65 K/uL (1.4-6.5); Neutrophils % (auto) 95.7 %; Platelet Count 241 K/uL (130-400); RDW Coefficient of Variation 13.6 % (11.5-14.5); RDW Standard Deviation 44.7 fL (36.4-46.3); Red Blood Count 4.23 M/uL (4.2-5.4); White Blood Count 12.18 K/uL (4.8-10.8)
[2022-02-19 14:31] LABS: Alanine Aminotransferase 27 U/L (7-52); Albumin Globulin Ratio 1.7 (0.9-2); Albumin Level 4.1 gm/dl (3.4-5.0); Alkaline Phosphatase 56 U/L (34-104); Anion Gap 9 (3-11); Aspartate Aminotransferase 54 U/L (13-39); BUN Creatinine Ratio 20.9 (10-20); Bilirubin,Total 1.2 mg/dl (0.2-1.0); Blood Urea Nitrogen 19 mg/dl (6-23); Calcium 9.3 mg/dl (8.5-10.1); Carbon Dioxide 23 mmol/L (21-32); Chloride 104 mmol/L (98-107); Est GFR (African American) 65.3 ml/min; Est GFR (Non-African American) 56.3 ml/min; Globulin 2.4 gm/dl (2.5-4.0); Glucose 141 mg/dl (70-99(Fasting)); Lipase 22 U/L (11-82); Sodium 136 mmol/L (136-145); Total Protein 6.5 gm/dl (6.0-8.3)
[2022-02-19] MEDS ORDERED: SODIUM CHLORIDE 0.9% 500 ML IV ONE ×2 (15:38→16:06)
--- NOTE | 2022-02-19 16:06 | Emergency Department Note ---
Impression & Plan Weakness, Confusion, Pulmonary embolism ED Provider Note NAME: ASHLEY RAMIREZ AGE: 86 SEX: F : 1935 ARRIVES VIA: Walk-In INFORMANT: Patient ED PROVIDER(S): Waqar Christiansen DO CHIEF COMPLAINT: weakness HPI: Patient is an 86-year-old female who presents ER for weakness and shivering. She had some urinary incontinence. She notes she admits to some nausea and did vomit once. Denies any headache or change in vision. No chest pain or shortness of breath. No belly pain at this point. Family notes that these are normal UTIs that she had 6 recently. She normally does not have any symptoms in regards to dysuria urgency or frequency. ROS: See above HPI for pertinent positives & negatives. A total of 10 systems reviewed and were otherwise negative. PAST MEDICAL HISTORY:See Below PAST SURGICAL HISTORY:See Below FAMILY HISTORY:See Below SOCIAL HISTORY:See Below HOME MEDICATIONS:See Below ALLERGIES:See Below VITALS:See Below PHYSICAL EXAMINATION: GENERAL: Sitting up in bed, alert, well appearing, well nourished, no distress, non-toxic EYE EXAM: normal conjunctiva. OROPHARYNX: no exudate, no erythema, lips, buccal mucosa, and tongue normal and mucous membranes are moist NECK: supple, no nuchal rigidity, no adenopathy, non-tender LUNGS: Clear to auscultation. Normal chest wall mechanics HEART: no murmurs, S1 normal and S2 normal ABDOMEN: abdomen soft, non-tender, normo-active bowel sounds, no masses, no rebound or guarding. UPPER EXTREMITIES: upper extremities are grossly normal. LOWER EXTREMITIES: No pitting edema. NEURO EXAM: Normal sensorium, cranial nerves II-XII grossly intact, normal speech, no gross weakness of arms, no gross weakness of legs. MEDICAL DECISION MAKING: Patient is an 86-year-old female who presents ER for the boasting complaint. IV was established blood work was obtained. Labs show mild leukocytosis of 12,000. No significant anemia. BMP is fairly unremarkable with exception of a slightly elevated glucose at 141. T bili was normal. LFTs bilirubin and lipase is unremarkable. UA was clean. COVID was negative. Patient was intermittently hypoxic in the upper 80s. Heart rate still remains slightly elevated. CT abdomen pelvis was negative. CT angio of the chest was performed and showed a questionable PE. We will hold on anticoagulation at this time as there is no large PEs. Patient family were updated bedside. Will need duplex of the lower extremities and will defer to the hospitalist. Patient was admitted for further work-up. EKG was unremarkable. Triage Nursing notes reviewed. Limited review of prior medical records performed Vital Signs: reviewed and remarkable for no significant abnormalities Differential diagnosis: Infection, dehydration, metabolic abnormality, hypo/hyperglycemia, electrolyte disturbance, anemia, hypoxia, cardiac sources, intracerebral event, toxicologic, neurologic, as well as other pathologies. ER treatment provided: See below Diagnostics interpreted by me: ECG: Sinus rhythm rate 94 Normal axis No PVCs Septal Q waves QTC 442 Cardiac Monitoring: An order was placed for continuous cardiac monitoring. The monitor shows a rate of 101 with sinus rhythm. Laboratory studies: As stated above and show below. Imaging studies: CT angio of the chest showed questionable PE CT abdomen pelvis is unremarkable Consultation(s): Discussed with Dr. Peacock for further evaluation Procedures: none Critical Care: None Past Med/Surg History Medical History Acute UTI Asthma Encephalopathy, metabolic Exertional chest pain Factor V Leiden, prothrombin gene mutation Failure of outpatient treatment High blood pressure Hyperlipidemia Left arm pain Precordial chest pain TIA (transient ischemic attack) Surgical History Hx of cholecystectomy S/P appy S/P cataract extraction S/P spinal surgery Family History Brother Lung cancer Father Lung cancer Sister Pancreatic cancer Social History Smoking Status: Never smoker Second Hand Exposure: No; Hx Alcohol Use: Yes Alcohol type: wine Alcohol Intake Frequency: Monthly or Less Hx Substance Use: No Preferred Language: Mongolian Communication Ability: Effective Chefs Required: No Beliefs That Will Affect Care: None marital status: Current Living Situation: Spouse How many Children do You have: 5 Feels Safe at Home: Yes Assistive Devices: None Allergies Allergies Allergy/AdvReac Type Severity Reaction Status Date / Time morphine Allergy Severe STOPS Verified 02/19/22 16:07 BREATHING moxifloxacin Allergy Intermediate CONFUSION/NIGHT Verified 02/19/22 16:07 CRANE bacitracin Allergy Mild Rash Verified 02/19/22 16:07 polymyxin B Allergy Mild Rash Verified 02/19/22 16:07 tramadol Allergy Unknown CAN'T Verified 02/19/22 16:07 REMEMBER fluorouracil AdvReac Intermediate didn't Verified 02/19/22 16:07 feel good CHIRAG CREAM AdvReac Severe WENT Uncoded 02/19/22 16:07 BALISTIC Home Meds Home Medications Medication Instructions Recorded Confirmed atenolol 25 mg tablet 12.5 mg PO DAILY 07/03/20 02/19/22 aspirin 81 mg tablet,delayed 81 mg PO DAILY 12/11/21 02/19/22 release conjugated estrogens 0.625 mg/gram 0.625 mg VAGINAL 2XWK 12/11/21 02/19/22 vaginal cream (Premarin) diclofenac sodium 1 % topical gel 2 g TOPICAL DIRECTED PRN 12/11/21 02/19/22 triamcinolone acetonide 0.1 % 1 applic TOPICAL DIRECTED PRN 12/11/21 02/19/22 topical ointment atorvastatin 10 mg tablet 10 mg PO DAILY 12/24/21 02/19/22 losartan 25 mg tablet 12.5 mg PO DAILY 02/19/22 02/19/22 nitrofurantoin 100 mg PO HS 02/19/22 02/19/22 monohydrate/macrocrystals 100 mg capsule nitroglycerin 0.4 mg sublingual 0.4 mg SUBLINGUAL DIRECTED PRN 02/19/22 02/19/22 tablet Results & Data (ED) Vital Signs Vital Signs - 24 hr 02/19/22 12:56 02/19/22 15:59 02/19/22 17:29 Temperature 36.8 C Temperature Source Temporal Artery Scan Pulse Rate 77 Pulse Rate [Right Finger] 69 100 H Respiratory Rate 20 20 24 Blood Pressure 98/58 L Blood Pressure [Right Arm] 117/56 L 123/56 L Blood Pressure Mean 71 Blood Pressure Mean [Right Arm] 76 78 Blood Pressure Position Sitting Blood Pressure Position [Right Arm] Lying Lying Pulse Oximetry 95 97 94 Oxygen Delivery Method Room Air Room Air Room Air Sepsis Recent Fever Within 48 Hours No Sepsis New/Unexplained Change in Mental Status N/A Sepsis Action Taken by Nursing No Action Required 02/19/22 19:39 Temperature Temperature Source Pulse Rate Pulse Rate [Right Finger] 103 H Respiratory Rate 18 Blood Pressure Blood Pressure [Right Arm] 105/47 L Blood Pressure Mean Blood Pressure Mean [Right Arm] 66 Blood Pressure Position Blood Pressure Position [Right Arm] Lying Pulse Oximetry 91 Oxygen Delivery Method Room Air Sepsis Recent Fever Within 48 Hours Sepsis New/Unexplained Change in Mental Status Sepsis Action Taken by Nursing Laboratory Data Result diagrams: 02/19/22 13:27 02/19/22 13:27 Lab Results 02/19/22 02/19/22 02/19/22 Range/Units 13:27 13: 17:00 WBC 12.18 H (4.8-10.8) K/uL RBC 4.23 (4.2-5.4) M/uL Hgb 12.6 (12.0-16.0) g/dL Hct 38.0 (37-47) % MCV 89.8 (80-100) fL MCH 29.8 (25-34) pg MCHC 33.2 (32-36) g/dL RDW Std Deviation 44.7 (36.4-46.3) fL RDW Coeff of Byron 13.6 (11.5-14.5) % Plt Count 241 (130-400) K/uL MPV 10.2 (7.4-10.4) fL Immature Gran % (Auto) 0.2 % Neut % (Auto) 95.7 % Lymph % (Auto) 1.8 % Gibson % (Auto) 1.1 % Eos % (Auto) 1.1 % Baso % (Auto) 0.1 % Neut # (Auto) 11.65 H (1.4-6.5) K/uL Lymph # (Auto) 0.22 L (1.2-3.4) K/uL Gibson # (Auto) 0.14 (0.11-0.59) K/uL Eos # (Auto) 0.13 (0-0.5) K/uL Baso # (Auto) 0.01 (0-0.2) K/uL Immature Gran # (Auto) 0.03 H (0.00-0.02) K/uL Sodium 136 (136-145) mmol/L Potassium 4.0 (3.5-5.1) mmol/L Chloride 104 (98-107) mmol/L Carbon Dioxide 23 (21-32) mmol/L Anion Gap 9 (3-11) BUN 19 (6-23) mg/dl Creatinine 0.91 (0.6-1.2) mg/dl Est Cr Clr Drug Dosing Not Reportable Est GFR ( Amer) 65.3 ml/min Est GFR (Non-Af Amer) 56.3 ml/min BUN/Creatinine Ratio 20.9 H (10-20) Glucose 141 H (70-99(Fasting)) mg/dl Calcium 9.3 (8.5-10.1) mg/dl Total Bilirubin 1.2 H (0.2-1.0) mg/dl AST 54 H (13-39) U/L ALT 27 (7-52) U/L Alkaline Phosphatase 56 (34-104) U/L Total Protein 6.5 (6.0-8.3) gm/dl Albumin 4.1 (3.4-5.0) gm/dl Globulin 2.4 L (2.5-4.0) gm/dl Albumin/Globulin Ratio 1.7 (0.9-2) Lipase 22 (11-82) U/L Urine Color Yellow Urine Appearance Clear (Clear) Urine pH 5.0 (4.5-7.5) Ur Specific [place] 1.034 H (1.000-1.030) Urine Protein Negative (Negative) Urine Glucose (UA) Negative (Negative) Urine Ketones 1+ H (Negative) Urine Blood Negative (Negative) Urine Nitrite Negative (Negative) Urine Bilirubin Negative (Negative) Urine Urobilinogen Negative (Negative) Ur Leukocyte Esterase Negative (Negative) SARS-CoV-2, RNA, NAAT (NEGATIVE) 02/19/22 Range/Units 17:29 WBC (4.8-10.8) K/uL RBC (4.2-5.4) M/uL Hgb (12.0-16.0) g/dL Hct (37-47) % MCV (80-100) fL MCH (25-34) pg MCHC (32-36) g/dL RDW Std Deviation (36.4-46.3) fL RDW Coeff of Byron (11.5-14.5) % Plt Count (130-400) K/uL MPV (7.4-10.4) fL Immature Gran % (Auto) % Neut % (Auto) % Lymph % (Auto) % Gibson % (Auto) % Eos % (Auto) % Baso % (Auto) % Neut # (Auto) (1.4-6.5) K/uL Lymph # (Auto) (1.2-3.4) K/uL Gibson # (Auto) (0.11-0.59) K/uL Eos # (Auto) (0-0.5) K/uL Baso # (Auto) (0-0.2) K/uL Immature Gran # (Auto) (0.00-0.02) K/uL Sodium (136-145) mmol/L Potassium (3.5-5.1) mmol/L Chloride (98-107) mmol/L Carbon Dioxide (21-32) mmol/L Anion Gap (3-11) BUN (6-23) mg/dl Creatinine (0.6-1.2) mg/dl Est Cr Clr Drug Dosing Est GFR ( Amer) ml/min Est GFR (Non-Af Amer) ml/min BUN/Creatinine Ratio (10-20) Glucose (70-99(Fasting)) mg/dl Calcium (8.5-10.1) mg/dl Total Bilirubin (0.2-1.0) mg/dl AST (13-39) U/L ALT (7-52) U/L Alkaline Phosphatase (34-104) U/L Total Protein (6.0-8.3) gm/dl Albumin (3.4-5.0) gm/dl Globulin (2.5-4.0) gm/dl Albumin/Globulin Ratio (0.9-2) Lipase (11-82) U/L Urine Color Urine Appearance (Clear) Urine pH (4.5-7.5) Ur Specific [place] (1.000-1.030) Urine Protein (Negative) Urine Glucose (UA) (Negative) Urine Ketones (Negative) Urine Blood (Negative) Urine Nitrite (Negative) Urine Bilirubin (Negative) Urine Urobilinogen (Negative) Ur Leukocyte Esterase (Negative) SARS-CoV-2, RNA, NAAT NEGATIVE (NEGATIVE) Administered Medications Discontinued Medications Sodium Chloride (Nss) 500 mls @ 999 mls/hr IV .Q31M ONE Stop: 02/19/22 16:08 Last Infusion: 02/19/22 17:14 Dose: 0 mls/hr Documented by: [id number] Admin: 02/19/22 15:59 Dose: 999 mls/hr Documented by: [id number] Sodium Chloride (Nss) 500 mls @ 999 mls/hr IV .Q31M ONE Stop: 02/19/22 16:36 Last Infusion: 02/19/22 18:19 Dose: 0 mls/hr Documented by: [id number] Admin: 02/19/22 17:32 Dose: 999 mls/hr Documented by: [id number] Sodium Chloride (Nss 1000ml) 1,000 mls @ 999 mls/hr IV .Q1H1M ONE Stop: 02/19/22 19:53 Last Infusion: 02/19/22 20:32 Dose: 0 mls/hr Documented by: [id number] Admin: 02/19/22 19:30 Dose: 999 mls/hr Documented by: [id number] Ioversol (Optiray 320 100ml) 93 ml IV ONCE ONE Stop: 02/19/22 16:19 Last Admin: 02/19/22 16:18 Dose: 93 ml Documented by: [id number] Ioversol (Optiray 320 125ml) 120 ml IV ONCE ONE Stop: 02/19/22 19:12 Last Admin: 02/19/22 19:12 Dose: 120 ml Documented by: [id number] Ondansetron HCl (Ondansetron Inj 2 Mg/Ml 2 Ml Vial) 4 mg IV NOW STA Stop: 02/19/22 13:04 Last Admin: 02/19/22 13:32 Dose: 4 mg Documented by: [id number] Imaging Data Radiologist's Impression: Abdomen/Pelvis CT 02/19/22 15:38 CT abd pelvis IV con only CLINICAL HISTORY: abd pain TECHNIQUE: Helical axial images of the abdomen and pelvis were obtained and displayed. Automated dose lowering techniques and/or adjustment according to patient size were utilized for this exam. This exam was performed with intravenous contrast. CT DOSE: 468.75 mGycm COMPARISON: Comparison is made to CT head 02/06/2022 FINDINGS: Lower chest: Atelectasis Liver: Unremarkable. No focal lesions are seen. Gallbladder and biliary tree: No calcified gallstones. Normal caliber wall. No intra- or extrahepatic biliary ductal dilation. Pancreas: Unremarkable, no focal lesions. Spleen: Unremarkable. Adrenals: Unremarkable. Kidneys and ureters: Unremarkable. Bladder: Limited evaluation due to underdistention. Reproductive organs: Unremarkable. Bowel: Diverticulosis is seen without evidence of diverticulitis. A hiatal hernia is seen. Lymph nodes Retroperitoneal: Unremarkable. Mesenteric: Unremarkable. Pelvic: Unremarkable. Peritoneum: Normal. Vessels: Atherosclerotic calcifications are seen. Abdominal wall: Unremarkable. Bones: Degenerative changes in the visualized spine. Anterior L1 compression deformity is seen, unchanged from prior exam. IMPRESSION: No evidence of acute abnormality. ACT 112: Negative or not required by law. Electronically signed by: Onur Watson M.D. 02/19/2022 4:36 PM Chest X-Ray 02/19/22 18:44 XR chest 1V portable CLINICAL HISTORY: chills COMPARISON STUDY: Chest CT December 24, 2021. Chest radiograph January 12, 2022. FINDINGS: There is no pneumothorax. Trace left pleural effusion is present. Interstitial thickening suggests mild pulmonary edema. Small hiatal hernia is present. Cardiac size is normal. No consolidation to suggest pneumonia. Minimal left basilar opacity favors atelectasis. IMPRESSION: Mild interstitial pulmonary edema with a trace left pleural effusion. ACT 112: Negative or not required by law. Electronically signed by: James Tucker M.D. 02/19/2022 7:07 PM Chest CTA 02/19/22 18:53 CT ANGIOGRAPHY OF THE CHEST, PULMONARY EMBOLUS PROTOCOL CLINICAL HISTORY: Shortness of breath. COMPARISON STUDY: Chest CT December 24, 2021. TECHNIQUE: Following IV administration of 120 mL of Optiray, helical axial images of the chest were obtained utilizing the pulmonary embolus protocol. Maximal intensity projections and sagittal and coronal reformats were viewed on an independent 3D workstation. IV contrast was administered without com plication. Automated exposure control was utilized for the study. A dose lowering technique was utilized adhering to the principles of ALARA. CT DOSE: 250.00 mGy.cm FINDINGS: This exam is mildly compromised by motion artifact. There is a probable small subsegmental pulmonary embolus within the lingula shown best on axial image 142 of 278. No additional pulmonary emboli are identified. Mild cardiomegaly is noted. No pericardial effusion. There is no pneumothorax. Trace left pleural fusion is noted. Interlobular septal thickening suggests mild pulmonary edema. Groundglass opacities favor atelectasis or alveolar edema. Old T7 and L1 compression deformities are noted. Visualized portions of the upper abdomen are unremarkable. IMPRESSION: 1. Probable small subsegmental pulmonary embolus within the lingula. In the absence of lower extremity deep venous thrombus, this finding is of uncertain clinical significance. Lower extremity venous Doppler ultrasound might be considered. No additional emboli identified although exam compromised by motion artifact. 2. Mild interstitial pulmonary edema. Trace left pleural effusion. ACT 112: Negative or not required by law. Electronically signed by: James Tucker M.D. 02/19/2022 7:53 PM Discharge Plan Visit Data Chief Complaint: Vomiting Stated Complaint: VOMITING ED Provider: Waqar Christiansen Discharge Problem: Weakness, Confusion, Pulmonary embolism Forms Stand Alone Forms: [facility] Prescriptions Prescriptions: No Action atenolol 25 mg Tablet 12.5 mg PO DAILY RF: 0 atorvastatin 10 mg tablet 10 mg PO DAILY RF: 0 aspirin 81 mg Tablet,Delayed Release (Dr/Ec) 81 mg PO DAILY RF: 0 Premarin 0.625 mg/gram cream 0.625 mg vaginal 2XWK RF: 0 triamcinolone acetonide 0.1 % ointment 1 applic TOPICAL DIRECTED PRN (Reason: Skin Irritation) RF: 0 diclofenac sodium 1 % Gel 2 g TOPICAL DIRECTED PRN (Reason: Pain) RF: 0 losartan 25 mg tablet 12.5 mg PO DAILY RF: 0 nitroglycerin 0.4 mg tablet, sublingual 0.4 mg sublingual DIRECTED PRN (Reason: Chest Pain) RF: 0 nitrofurantoin monohyd/m-cryst 100 mg capsule 100 mg PO HS RF: 0 Referrals Referrals: Gucci Benjamin MD [Primary Care Provider] - Discharge Problem: Pulmonary embolism Qualifiers: Pulmonary embolism type: unspecified Chronicity: unspecified Acute cor pulmonale presence: unspecified Qualified Code(s): I26.99 - Other pulmonary embolism without acute cor pulmonale
[2022-02-19] MEDS ORDERED: OPTIRAY 320 100ml IV ONE (16:18)
--- NOTE | 2022-02-19 16:39 | CT Scan Report ---
CT abd pelvis IV con only CLINICAL HISTORY: abd pain TECHNIQUE: Helical axial images of the abdomen and pelvis were obtained and displayed. Automated dose lowering techniques and/or adjustment according to patient size were utilized for this exam. This e xam was performed with intravenous contrast. CT DOSE: 468.75 mGycm COMPARISON: Comparison is made to CT head 02/06/2022 FINDINGS: Lower chest: Atelectasis Liver: Unremarkable. No focal lesions are seen. Gallbladder and biliary tree: No calcified gallstones. Normal caliber wall. No intra- or extrahepatic biliary ductal dilation. Pancreas: Unremarkable, no focal lesions. Spleen: Unremarkable. Adrenals: Unremarkable. Kidneys and ureters: Unremarkable. Bladder: Limited evaluation due to underdistention. Reproductive organs: Unremarkable. Bowel: Diverticulosis is seen without evidence of diverticulitis. A hiatal hernia is seen. Lymph nodes Retroperitoneal: Unremarkable. Mesenteric: Unremarkable. Pelvic: Unremarkable. Peritoneum: Normal. Vessels: Atherosclerotic calcifications are seen. Abdominal wall: Unremarkable. Bones: Degenerative changes in the visualized spine. Anterior L1 compression deformity is seen, uncha nged from prior exam. IMPRESSION: No evidence of acute abnormality. ACT 112: Negative or not required by law. Electronically signed by: Onur Watson M.D. 02/19/2022 4:36 PM
[2022-02-19 17:31] LABS: Appearance Urine Clear (Clear); Bilirubin Urine Negative (Negative); Blood Urine Negative (Negative); Color Urine Yellow; Glucose Urine UA Negative (Negative); Ketones Urine 1+ (Negative); Leukocyte Esterase Urine Negative (Negative); Nitrite Urine Negative (Negative); Protein Urine Negative (Negative); Specific Gravity Urine 1.034 (1.000-1.030); Urobilinogen Urine Negative (Negative)
[2022-02-19] MEDS ORDERED: SODIUM CHLORIDE 0.9% 1000ML 1,000 ML IV ONE (18:53)
--- NOTE | 2022-02-19 19:09 | XRay Report ---
XR chest 1V portable CLINICAL HISTORY: chills COMPARISON STUDY: Chest CT December 24, 2021. Chest radiograph January 12, 2022. FINDINGS: There is no pneumothorax. Trace left pleural effusion is present. Interstitial thickening s uggests mild pulmonary edema. Small hiatal hernia is present. Cardiac size is normal. No consolidatio n to suggest pneumonia. Minimal left basilar opacity favors atelectasis. IMPRESSION: Mild interstitial pulmonary edema with a trace left pleural effusion. ACT 112: Negative or not required by law. Electronically signed by: James Tucker M.D. 02/19/2022 7:07 PM
[2022-02-19] MEDS ORDERED: OPTIRAY 320 125ml IV ONE (19:11)
--- NOTE | 2022-02-19 19:55 | CT Scan Report ---
CT ANGIOGRAPHY OF THE CHEST, PULMONARY EMBOLUS PROTOCOL CLINICAL HISTORY: Shortness of breath. COMPARISON STUDY: Chest CT December 24, 2021. TECHNIQUE: Following IV administration of 120 mL of Optiray, helical axial images of the chest were o btained utilizing the pulmonary embolus protocol. Maximal intensity projections and sagittal and cor onal reformats were viewed on an independent 3D workstation. IV contrast was administered without co mplication. Automated exposure control was utilized for the study. A dose lowering technique was ut ilized adhering to the principles of ALARA. CT DOSE: 250.00 mGy.cm FINDINGS: This exam is mildly compromised by motion artifact. There is a probable small subsegmental pulmonary embolus within the lingula shown best on axial image 142 of 278. No additional pulmonary e mboli are identified. Mild cardiomegaly is noted. No pericardial effusion. There is no pneumothorax. Trace left pleural fusion is noted. Interlobular septal thickening suggests mild pulmonary edema. Lashay undglass opacities favor atelectasis or alveolar edema. Old T7 and L1 compression deformities are not ed. Visualized portions of the upper abdomen are unremarkable. IMPRESSION: 1. Probable small subsegmental pulmonary embolus within the lingula. In the absence of lower extremit y deep venous thrombus, this finding is of uncertain clinical significance. Lower extremity venous Do ppler ultrasound might be considered. No additional emboli identified although exam compromised by mo tion artifact. 2. Mild interstitial pulmonary edema. Trace left pleural effusion. ACT 112: Negative or not required by law. Electronically signed by: James Tucker M.D. 02/19/2022 7:53 PM
--- NOTE | 2022-02-19 23:55 | History and Physical Report ---
DATE OF ADMISSION: 02/19/2022. CHIEF COMPLAINT: Weakness, nausea. HISTORY OF PRESENT ILLNESS: This is an 86-year-old female with past medical history significant for factor V Leiden gene mutation, hyperlipidemia, hypertension, asthma, history of TIA, history of benign positional vertigo, history of recurrent UTIs, who was recently treated for pseudomonas UTI, who lives with her and her daughter checks on her. Presents with weakness and shivering and some urinary incontinence, some nausea and one episode of vomiting. There is questionable UTI, but urinalysis came back negative, and she was slightly hypoxic in the ER and a CT of the chest was done which is showing questionable small subsegmental pulmonary emboli within the lingula and there is no DVT in lower extremities. There are findings of uncertain clinical significance. The patient is currently resting comfortably, hemodynamically stable. Denies any headache, no dizziness, no blurred visions, no earache, no runny nose, no sore throat, no cough, no fevers, no chest pain, no shortness of breath, no abdominal pain. Normal bowel and bladder movements. No swelling in the legs. She says she ambulates without support. When she was weak and shivering, she thought she was having a stroke. ALLERGIES: MORPHINE, MOXIFLOXACIN, BACITRACIN, POLYMYXIN B, TRAMADOL, FLUOROURACIL. PAST MEDICAL HISTORY: As mentioned above. PAST SURGICAL HISTORY: Colonoscopy, EGD with biopsy, ligation of the oviducts, tonsillectomy, cataract surgery, cholecystectomy, sinus surgery, total hysterectomy. MEDICATIONS: The patient is on aspirin 81 mg p.o. daily, atenolol 12.5 mg p.o. daily, atorvastatin 10 mg p.o. daily, diclofenac sodium 2 g topical p.r.n., losartan 12.5 mg p.o. daily, nitrofurantoin monohydrate 100 mg p.o. at bedtime, nitroglycerin 0.4 mg sublingual p.r.n., Premarin 0.625 mg vaginally 2 times a week, triamcinolone p.r.n. FAMILY HISTORY: Significant for brother has lung cancer, father has lung cancer, sister has pancreatic cancer. SOCIAL HISTORY: , lives with her . No smoking. Alcohol, occasional wine. No drug use. REVIEW OF SYSTEMS: As per HPI. Rest of review of systems is negative. PHYSICAL EXAMINATION: GENERAL: The patient is old and frail, not in acute distress. VITAL SIGNS: Temperature 36.8, pulse 103, respiratory rate 18, blood pressure 105/47, oxygen 91% on room air. HEENT: Pupils equal, round and reactive to light. Oral mucosa moist. NECK: No JVD. No masses. CARDIOVASCULAR: S1 and S2 heard. Regular rate and rhythm. No murmur, no gallop. RESPIRATORY SYSTEM: Normal AP diameter. No accessory muscle use. No wheezing, no crackles. ABDOMEN: Soft. Bowel sounds are present, nontender, no distention. CENTRAL NERVOUS SYSTEM: Cranial nerves II-XII grossly intact. Extraocular muscles intact. No facial droop. Speech is clear. Power 5/5 in all extremities. Sensation is intact. Coordination of movements normal. No pronator drift. Position sense intact. EXTREMITIES: No edema, no erythema. LABORATORY DATA: WBC 12.1, hemoglobin 12.6, hematocrit 38, platelets 241. Sodium 136, potassium 4, chloride 104, CO2 of 23, BUN 19, creatinine 0.9, serum glucose 141, calcium 9.3, total bilirubin 1.2, AST 54, ALT 27, alkaline phosphatase 56, lipase 22. Urinalysis negative. SARS-CoV-2 rapid test negative. IMAGING DATA: CTA of the chest, probable small subsegmental pulmonary embolus within the lingula in the absence of lower extremity DVT. This finding is of uncertain clinical significance. Chest x-ray, mild interstitial pulmonary edema with trace left pleural effusion. CT of abdomen and pelvis, no acute findings. EKG: Normal sinus rhythm at a rate of 94. ASSESSMENT AND PLAN: This 86-year-old female presents with weakness and shivering and nausea and found to have small pulmonary embolism. 1. Weakness, nausea: So far imaging studies are okay. The patient has history of recurrent urinary tract infections, but urinalysis negative at this time. Placed on gentle fluids, full liquid diet for now, and monitor. 2. Possible small pulmonary embolism: Will start on low-dose IV heparin. Will check lower extremity Doppler. If lower extremity Doppler is negative, can consider rescanning with a CTA chest or d/w with radiology for continue anticoagulation. 3. questionable transient ischemic attacks. The patient was worried if she was having stroke-like symptoms.Hx of TIA. Will follow CT of the head. If any concern, will get the MRI scan. Will follow PT/OT. 4. History of hypertension: Continue her atenolol and losartan. Will monitor blood pressure. 5.. Hyperlipidemia: Continue statin. 6. Deep venous thrombosis prophylaxis: Currently on IV heparin. DISPOSITION: Closely monitor in the med tele. PT/OT prior to discharge. Social service to help with discharge planning. Level 1 full code. Job ID: [id number] MTDD
[2022-02-20] MEDS ORDERED: SODIUM CHLORIDE 0.9% 1000ML 1,000 ML IV SCH (00:10)
[2022-02-20] MEDS ORDERED: TRIAMCINOLONE ACET 0.1% OINT 15 GM TUBE TOP PRN (00:10)
[2022-02-20] MEDS ORDERED: NITROGLYCERIN SL 0.4 MG/TAB TAB SL PRN ×2 (00:10)
[2022-02-20] MEDS ORDERED: DICLOFENAC SOD 1% GEL 100 GM TUBE EXT PRN (00:10)
[2022-02-20] MEDS ORDERED: ONDANSETRON INJ 2 MG/ML 2 ML VIAL IV PRN (00:10)
[2022-02-20] MEDS ORDERED: ACETAMINOPHEN 325 MG TAB PO PRN (00:10)
[2022-02-20] MEDS ORDERED: Heparin IV Adult Wt-Based Low-Dose *NO* Bolus Protocol ONE (00:10)
[2022-02-20] MEDS: HEPARIN SODIUM/DEXTROSE 25,000 UNITS/500 ML BAG IV SCH (01:02)
--- NOTE | 2022-02-20 06:47 | CT Scan Report ---
CT SCAN OF THE BRAIN WITHOUT IV CONTRAST CLINICAL HISTORY: Generalized weakness. COMPARISON STUDY: CT of the brain dated 01/13/2022. TECHNIQUE: Unenhanced axial CT scan of the brain is performed from the vertex to the skull base. A do se lowering technique was utilized adhering to the principles of ALARA. The skull base was scanned tw ice due to motion artifact. With assessment for hemorrhage is significantly degraded by the presence of residual IV contrast throughout the intracranial circulation. CT DOSE: 767.83 mGy.cm FINDINGS: Brain parenchyma: There is age-related involutional change noting mild subcortical and periventricula r microangiopathic disease. There is no evidence of hemorrhage, mass effect, or acute territorial isc hemia by CT criteria. Feldman-white matter differentiation is preserved. No extra-axial fluid collection is seen. Ventricles, sulci, cisterns: Prominent secondary to involutional change. Intracranial vasculature: There is atherosclerotic calcification of the cavernous carotid and vertebr al arteries. Calvarium: Unremarkable. Sinuses and mastoids: There is evidence of previous paranasal sinus surgery. The visualized paranasal sinuses are clear. The mastoid air cells are well pneumatized. Orbits: The bony orbits are grossly intact. There are bilateral ocular lens implants. IMPRESSION: There is no evidence of hemorrhage, mass effect, or acute territorial ischemia by CT sherman odom. ACT 112: Negative or not required by law. Electronically signed by: Edil Tamez M.D. 02/20/2022 6:44 AM
--- NOTE | 2022-02-20 07:20 | Ultrasound Report ---
BILATERAL LOWER EXTREMITY VENOUS DOPPLER HISTORY: Patient presents with pulmonary embolus and pulmonary edema. ?PE. rule out DVT COMPARISON STUDY: CTA chest study 02/19/2022, duplex venous Doppler study 08/27/2011 FINDINGS: There is normal compressibility, flow, and augmentation within the right lower extremity de ep venous structures. Within the left lower extremity, thickened haider with calcifications and echoge dewey intraluminal filling defects are noted resulting in broken flow/partial occlusion within the dist al common femoral vein and also within the superficial femoral, popliteal and posterior tibial veins. IMPRESSION: 1. No evidence of right lower extremity DVT. 2. Chronic appearing DVT within the left lower extremity. ACT 112: Negative or not required by law. Electronically signed by: Devendra Emmanuel M.D. 02/20/2022 7:18 AM
[2022-02-20 07:48] LABS: Basophils # (auto) 0.03 K/uL (0-0.2); Basophils % (auto) 0.2 %; Eosinophils # (auto) 0.58 K/uL (0-0.5); Eosinophils % (auto) 4.5 %; Hematocrit (blood only) 32.2 % (37-47); Hemoglobin 10.5 g/dL (12.0-16.0); Immature Granulocytes # (auto) 0.02 K/uL (0.00-0.02); Immature Granulocytes % (auto) 0.2 %; Lymphocytes # (auto) 0.59 K/uL (1.2-3.4); Lymphocytes % (auto) 4.6 %; Mean Corpuscular Hemoglobin 29.5 pg (25-34); Mean Corpuscular Hgb Conc 32.6 g/dL (32-36); Mean Corpuscular Volume 90.4 fL (80-100); Mean Platelet Volume 10.3 fL (7.4-10.4); Monocytes # (auto) 0.87 K/uL (0.11-0.59); Monocytes % (auto) 6.7 %; Neutrophils # (auto) 10.85 K/uL (1.4-6.5); Neutrophils % (auto) 83.8 %; Platelet Count 200 K/uL (130-400); RDW Coefficient of Variation 13.9 % (11.5-14.5); RDW Standard Deviation 46.4 fL (36.4-46.3); Red Blood Count 3.56 M/uL (4.2-5.4); White Blood Count 12.94 K/uL (4.8-10.8)
[2022-02-20 08:15] LABS: Partial Thromboplastin Ratio 1.3; Partial Thromboplastin Time 35.1 Seconds (21.0-31.0)
[2022-02-20 08:16] LABS: BUN Creatinine Ratio 16.3 (10-20); Calcium 7.4 mg/dl (8.5-10.1); Creatinine Clr Calc Pharmacy 37.4 ml/min; Est GFR (African American) 69.9 ml/min; Est GFR (Non-African American) 60.3 ml/min; Magnesium 1.7 mg/dl (1.7-2.4); Potassium 3.8 mmol/L (3.5-5.1)
[2022-02-20] MEDS: ASPIRIN 81 MG ECTAB PO SCH (09:16)
[2022-02-20] MEDS: LOSARTAN POTASSIUM 25 MG TAB PO SCH (09:16)
[2022-02-20] MEDS: ATORVASTATIN 10 MG TAB PO SCH (09:16)
[2022-02-20] MEDS: ATENOLOL 25 MG TABLET PO SCH (10:15)
[2022-02-20] MEDS ORDERED: HEPARIN SOD (PORCINE) 1000 UNIT/ML IV ONE (15:20)
--- NOTE | 2022-02-20 15:41 | Hospitalist Progress Note ---
Date of Service February 20, 2022 Assessment & Plan (1) Pulmonary embolism: Plan: 86-year-old female with past medical history significant for factor V Leiden gene mutation, hyperlipidemia, hypertension, asthma, history of TIA, history of benign positional vertigo, history of recurrent UTIs, who was recently treated for pseudomonas UTI, who lives with her and her daughter checks on her. Presents 02/19 with weakness and shivering and some urinary incontinence, s ome nausea and one episode of vomiting. No home O2, pt ambulates w/o support at home. She is being managed for the following: #. Weakness, nausea Patient presents with weakness and savoring and some urinary incontinence, recently treated for UTI as an outpatient. Admitting urinalysis negative for UTI. Patient denies any pain or burning while passing urine. Admitting CT AP WNL, admitting CXR with no infectious findings. Admitting CTA chest: Suggestive of subsegmental PE within the lingula. Mild interstitial pulmonary edema. Admitting CT head: No acute findings. Patient afebrile, WBC minimally elevated, follow-up Pro-Carlos A. Continue to monitor off antibiotic. PT/OT. #. Chronic DVT #. PE On the background of factor B Leiden gene mutation. Incidental finding of PE on CTA chest done for infectious work-up followed by Doppler US BLE. CTA chest, see above.Admitting BLE venous Doppler: Chronic appearing DVT within LLE. Patient started on heparin drip, continue. Will send Eliquis to pharmacy for cost. D/w Pt's dtr regarding Anticoagulation choice 02/20. She would like to go w/ eliquis. #. Questionable TIA: Admitting CT head with no acute findings. Neurological examination at bedside WNL. #. Other chronic medical conditions: HTN, HLD Continue with/resume home meds as and when appropriate. #. DVT prophylaxis: On IV heparin, transition to eliquis deidre. #. Disposition: PT/OT, CM to assist with DC planning. Expect discharge in next 1 day. Admission and Anticipated Discharge Date Admission Date: February 19, 2022 Subjective Patient seen and examined at bedside for weakness and nausea, DVT and PE. Patient was lying in bed, NAD, on room air, NAD, alert and oriented x2, denies any fever/headache/shortness of breath/dizziness/chest pain/cough/belly pain/changes in bowel or bladder habit. Physical Exam Physical Exam: GENERAL: Alert and oriented x2. NAD, on RA. HEENT: No pallor, no icterus. Pupils equal, round and reactive to light. Oral mucosa moist. NECK: No JVD, no neck masses. HEART: S1 and S2 heard. Regular rate and rhythm. No murmur, no gallop. RESPIRATORY SYSTEM: Normal AP diameter. No accessory muscle use. No wheezing, no crackles. ABDOMEN: Soft, bowel sounds present, nontender, no distention. CENTRAL NERVOUS SYSTEM: No facial droop. Speech is clear. Obeys simple commands. Moves extremities. EXTREMITIES: No edema, no erythema seen. Results & Data Results & Data ([facility]) Vital Signs (Past 12 Hours) Vital Signs Pulse Pulse Resp BP BP Pulse Ox 02/20/22 15:29 64 17 115/59 L 97 02/20/22 12:00 79 17 104/53 L 95 02/20/22 11:40 89 17 114/53 L 96 02/20/22 10:00 75 17 108/53 L 94 02/20/22 09:00 77 17 92/55 L 95 02/20/22 08:11 83 17 105/54 L 95 02/20/22 06:00 78 20 99/46 L 98 (1) Pulmonary embolism Acute cor pulmonale presence: unspecified Chronicity: unspecified Pulmonary embolism type: unspecified Qualified Code(s): I26.99 - Other pulmonary embolism without acute cor pulmonale
[2022-02-20 23:40] LABS: Partial Thromboplastin Ratio 1.3; Partial Thromboplastin Time 36.7 Seconds (21.0-31.0)
[2022-02-21] MEDS ORDERED: HEPARIN SOD (PORCINE) 1000 UNIT/ML IV ONE ×2 (00:30→07:58)
[2022-02-21] MEDS: HEPARIN SODIUM/DEXTROSE 25,000 UNITS/500 ML BAG IV SCH (00:42)
[2022-02-21] MEDS: ATENOLOL 25 MG TABLET PO SCH (08:24)
[2022-02-21] MEDS: ASPIRIN 81 MG ECTAB PO SCH (08:25)
[2022-02-21] MEDS: LOSARTAN POTASSIUM 25 MG TAB PO SCH (08:25)
[2022-02-21] MEDS: ATORVASTATIN 10 MG TAB PO SCH (08:25)
[2022-02-21] MEDS ORDERED: APIXABAN 5 MG TABLET PO SCH (09:00)
[2022-02-21] MEDS ORDERED: ADVANCED PROBIOTIC 1250 MG CAPSULE PO SCH (09:00)
[2022-02-21] MEDS ORDERED: cefTRIAXone SODIUM 1,000 MG in DEXTROSE 5% 50 ML IV SCH (09:00)
[2022-02-21 09:17] LABS: Partial Thromboplastin Ratio 2.3
[2022-02-21 09:19] LABS: Partial Thromboplastin Time 62.6 Seconds (21.0-31.0)
--- NOTE | 2022-02-21 13:15 | Electrocardiogram Report ---
Test Reason : Blood Pressure : / mmHG Vent. Rate : 094 BPM Atrial Rate : 094 BPM P-R Int : 196 ms QRS Dur : 080 ms QT Int : 354 ms P-R-T Axes : 060 006 041 degrees QTc Int : 442 ms Poor data quality, interpretation may be adversely affected Normal sinus rhythm Poor R wave progression, consider anterior GA vs. lead placement vs. LVH Abnormal ECG When compared with ECG of 12-JAN-2022 23:45, No significant change Confirmed by Gucci Villarreal ([id number]) on 02/21/2022 1:15:21 PM Referred By: Gucci Benjamin Confirmed By:Gucci Villarreal
--- NOTE | 2022-02-21 14:48 | Discharge Summary ---
Date of Service February 21, 2022 Admission HPI Per Admitting Provider CHIEF COMPLAINT: Weakness, nausea. HISTORY OF PRESENT ILLNESS: This is an 86-year-old female with past medical history significant for factor V Leiden gene mutation, hyperlipidemia, hypertension, asthma, history of TIA, history of benign positional vertigo, history of recurrent UTIs, who was recently treated for pseudomonas UTI, who lives with her and her daughter checks on her. Presents with weakness and shivering and some urinary incontinence, some nausea and one episode of vomiting. There is questionable UTI, but urinalysis came back negative, and she was slightly hypoxic in the ER and a CT of the chest was done which is showing questionable small subsegmental pulmonary emboli within the lingula and there is no DVT in lower extremities. There are findings of uncertain clinical significance. The patient is currently resting comfortably, hemodynamically stable. Denies any headache, no dizziness, no blurred visions, no earache, no runny nose, no sore throat, no cough, no fevers, no chest pain, no shortness of breath, no abdominal pain. Normal bowel and bladder movements. No swelling in the legs. She says she ambulates without support. When she was weak and shivering, she thought she was having a stroke. ALLERGIES: MORPHINE, MOXIFLOXACIN, BACITRACIN, POLYMYXIN B, TRAMADOL, FLUOROURACIL. PAST MEDICAL HISTORY: As mentioned above. PAST SURGICAL HISTORY: Colonoscopy, EGD with biopsy, ligation of the oviducts, tonsillectomy, cataract surgery, cholecystectomy, sinus surgery, total hysterectomy. MEDICATIONS: The patient is on aspirin 81 mg p.o. daily, atenolol 12.5 mg p.o. daily, atorvastatin 10 mg p.o. daily, diclofenac sodium 2 g topical p.r.n., losartan 12.5 mg p.o. daily, nitrofurantoin monohydrate 100 mg p.o. at bedtime, nitroglycerin 0.4 mg sublingual p.r.n., Premarin 0.625 mg vaginally 2 times a week, triamcinolone p.r.n. FAMILY HISTORY: Significant for brother has lung cancer, father has lung cancer, sister has pancreatic cancer. SOCIAL HISTORY: , lives with her . No smoking. Alcohol, occasional wine. No drug use. REVIEW OF SYSTEMS: As per HPI. Rest of review of systems is negative. Admission Exam Per Admitting Provider GENERAL: The patient is old and frail, not in acute distress. VITAL SIGNS: Temperature 36.8, pulse 103, respiratory rate 18, blood pressure 105/47, oxygen 91% on room air. HEENT: Pupils equal, round and reactive to light. Oral mucosa moist. NECK: No JVD. No masses. CARDIOVASCULAR: S1 and S2 heard. Regular rate and rhythm. No murmur, no gallop. RESPIRATORY SYSTEM: Normal AP diameter. No accessory muscle use. No wheezing, no crackles. ABDOMEN: Soft. Bowel sounds are present, nontender, no distention. CENTRAL NERVOUS SYSTEM: Cranial nerves II-XII grossly intact. Extraocular muscles intact. No facial droop. Speech is clear. Power 5/5 in all extremities. Sensation is intact. Coordination of movements normal. No pronator drift. Position sense intact. EXTREMITIES: No edema, no erythema. Principal Diagnosis Pulmonary embolism Chronic DVT within LLE Likely UTI Discharge Exam GENERAL: Alert and oriented x2. NAD, on RA. HEENT: No pallor, no icterus. Pupils equal, round and reactive to light. Oral mucosa moist. NECK: No JVD, no neck masses. HEART: S1 and S2 heard. Regular rate and rhythm. No murmur, no gallop. RESPIRATORY SYSTEM: Normal AP diameter. No accessory muscle use. No wheezing, no crackles. ABDOMEN: Soft, bowel sounds present, nontender, no distention. CENTRAL NERVOUS SYSTEM: No facial droop. Speech is clear. Obeys simple commands. Moves extremities. EXTREMITIES: No edema, no erythema seen. Discharge Data Allergies Allergy/AdvReac Type Severity Reaction Status Date / Time morphine Allergy Severe STOPS Verified 02/19/22 16:07 BREATHING moxifloxacin Allergy Intermediate CONFUSION/NIGHT Verified 02/19/22 16:07 CRANE bacitracin Allergy Mild Rash Verified 02/19/22 16:07 polymyxin B Allergy Mild Rash Verified 02/19/22 16:07 tramadol Allergy Unknown CAN'T Verified 02/19/22 16:07 REMEMBER fluorouracil AdvReac Intermediate didn't Verified 02/19/22 16:07 feel good CHIRAG CREAM AdvReac Severe WENT Uncoded 02/19/22 16:07 BALISTIC Consultations 02/19/22 20:01 ED Decision to Admit Stat Ordered Studies 02/19/22 15:38 CT abd pelvis IV con only Stat 02/19/22 18:53 CT angio chest PE protocol Stat 02/19/22 22:09 CT head/brain wo con Urgent 02/20/22 00:10 US venous doppler LE Routine Hospital Course (1) Pulmonary embolism: 86-year-old female with past medical history significant for factor V Leiden gene mutation, hyperlipidemia, hypertension, asthma, history of TIA, history of benign positional vertigo, history of recurrent UTIs, who was recently treated for pseudomonas UTI, who lives with her and her daughter checks on her. Presents 02/19 with weakness and shivering and some urinary incontinence, some nausea and one episode of vomiting. No home O2, pt ambulates w/o support at home. She was managed for the following: #. Weakness, nausea Patient presents with weakness and shivering and some urinary incontinence, recently treated for UTI as an outpatient. Admitting urinalysis negative for UTI. Patient denies any pain or burning while passing urine. Admitting WBC and pro Carlos A elevated. Admitting CT AP WNL, admitting CXR with no infectious findings. Admitting CTA chest: Suggestive of subsegmental PE within the lingula. Mild interstitial pulmonary edema. Admitting CT head: No acute findings. Patient afebrile, started on Rocephin 02/21, patient feels strong and better closer to her baseline, will be discharged on p.o. cefdinir to complete the course for UTI. Patient advised to follow-up with her urology as an outpatient within a week time along with her primary care physician within a week time. #. Chronic DVT #. PE On the background of factor B Leiden gene mutation. Incidental finding of PE on CTA chest done for infectious work-up followed by Doppler US BLE. CTA chest, see above.Admitting BLE venous Doppler: Chronic appearing DVT within LLE. Patient started on heparin drip, transition to Eliquis 02/21, coupon for first month provided by protective services case worker. Patient will have to get in touch with her primary care physician in 6 months time to further discuss on continuation of her anticoagulation. #. Questionable TIA: Admitting CT head with no acute findings. Neurological examination at bedside WNL. #. Other chronic medical conditions: HTN, HLD Continue with/resume home meds as and when appropriate. Patient being discharged home with following instruction at the point of discharge: Follow-up with your primary care physician within a week time. For your symptoms concerning for UTI, you are being discharged on antibiotic, complete the course. Follow-up with your urology doctor as an outpatient for further recommendation on your recurrent UTI. You do not have to take your nitrofurantoin while you are taking this new antibiotic cefdinir for 7 days. Get your blood work CBC and CMP done in a week time and have the results forwarded to your primary care physician. You were diagnosed with pulmonary embolism and chronic DVT in your left lower le g, you are being discharged on Eliquis, you were also provided with coupon from protective services case worker for first month's prescription, your cost after the first month would be $45 a month per protective services case worker. You will need to follow-up with your primary care physician to revisit this topic every 6-month to 1 year for further discussion on benefit and risks of continuing anticoagulation based on your clinical condition. Take your medications as prescribed. Total Time Total Time Spent Total Time Spent (In Minutes): 35 Discharge Plan Discharge Items Patient Disposition: Home - Self-Care Reason For Visit: WEAKNESS Discharge Diagnosis: Pulmonary embolism Chronic DVT within LLE Likely UTI Activity: Resume your previous activity Non-emergency contact: Primary Care Provider Call non-emergency contact if: you have any medication questions, your pain is not controlled and your temperature is above 101 Follow-up/Referrals: Gucci Benjamin MD [Primary Care Provider] - Diet: Heart Healthy Diet Texture: Easy to Chew Addtl Attending Provider Instructions: Follow-up with your primary care physician within a week time. For your symptoms concerning for UTI, you are being discharged on antibiotic, complete the course. Follow-up with your urology doctor as an outpatient for further recommendation on your recurrent UTI. You do not have to take your nitrofurantoin while you are taking this new antibiotic cefdinir for 7 days. Get your blood work CBC and CMP done in a week time and have the results forwarded to your primary care physician. You were diagnosed with pulmonary embolism and chronic DVT in your left lower leg, you are being discharged on Eliquis, you were also provided with coupon from protective services case worker for first month's prescription, your cost after the first month would be $45 a month per protective services case worker. You will need to follow-up with your primary care physician to revisit this topic every 6-month to 1 year for further discussion on benefit and risks of continuing anticoagulation based on your clinical condition. Take your medications as prescribed. Pending Studies at Discharge: No Stand-Alone Forms: My [facility], Smoking Cessation Medications and DC Order Prescriptions: New Eliquis 5 mg tablet 5 mg PO BID Qty: 74 RF: 0 Advanced Probiotic 625 mg (10 billion cell) Capsule 2 cap PO DAILY Qty: 14 RF: 0 cefdinir 300 mg capsule 300 mg PO BID 7 Days Qty: 14 RF: 0 Continued atenolol 25 mg Tablet 12.5 mg PO DAILY RF: 0 atorvastatin 10 mg tablet 10 mg PO DAILY RF: 0 aspirin 81 mg Tablet,Delayed Release (Dr/Ec) 81 mg PO DAILY RF: 0 Premarin 0.625 mg/gram cream 0.625 mg vaginal 2XWK RF: 0 triamcinolone acetonide 0.1 % ointment 1 applic TOPICAL DIRECTED PRN (Reason: Skin Irritation) RF: 0 diclofenac sodium 1 % Gel 2 g TOPICAL DIRECTED PRN (Reason: Pain) RF: 0 losartan 25 mg tablet 12.5 mg PO DAILY RF: 0 nitroglycerin 0.4 mg tablet, sublingual 0.4 mg sublingual DIRECTED PRN (Reason: Chest Pain) RF: 0 Discontinued nitrofurantoin monohyd/m-cryst 100 mg capsule 100 mg PO HS RF: 0 Discharge Orders: Discharge Order (Routine); Ordered 02/21/22 Ordered By: Danis Hampton Admission Data Admit Date/Time: 02/19/22 22:08 Attending Provider: Danis Hampton Admit Provider: Hans Sahu Primary Care Provider: Gucci Benjamin Other Providers: Hans Sahu
== END 2022-02-21 15:45 | disposition home or self-care (01) | DRG 689 ==
LOC: ED 12:50 → EDINP 22:08 → 2S 02-20 23:08

== ENCOUNTER 2022-05-24 03:56 | Inpatient (IN) ==
[2022-05-24 04:36] LABS: Basophils # (auto) 0.03 K/uL (0-0.2); Basophils % (auto) 0.7 %; Eosinophils # (auto) 0.19 K/uL (0-0.50); Eosinophils % (auto) 4.1 %; Hematocrit (blood only) 32.4 % (34.1-44.9); Hemoglobin 10.6 g/dl (12.0-16.0); Immature Granulocytes # (auto) 0.02 K/uL (0.00-0.02); Immature Granulocytes % (auto) 0.4 %; Lymphocytes # (auto) 1.41 K/uL (1.2-3.4); Lymphocytes % (auto) 30.7 %; Mean Corpuscular Hemoglobin 29.2 pg (25.0-34.0); Mean Corpuscular Hgb Conc 32.7 g/dL (32.0-36.0); Mean Corpuscular Volume 89.3 fL (80.0-100.0); Mean Platelet Volume 10.3 fL (9.4-12.3); Monocytes # (auto) 0.42 K/uL (0.24-0.82); Monocytes % (auto) 9.2 %; Neutrophils # (auto) 2.52 K/uL (1.4-6.5); Neutrophils % (auto) 54.9 %; Platelet Count 173 K/uL (130-400); RDW Coefficient of Variation 13.8 % (11.5-14.5); Red Blood Count 3.63 M/uL (3.93-5.22); White Blood Count 4.59 K/ul (4.8-10.8)
[2022-05-24] MEDS: SODIUM CHLORIDE 0.9% 1000ML 1,000 ML IV SCH ×3 (04:52→20:08)
[2022-05-24 05:11] LABS: Alanine Aminotransferase 7 U/L (7-52); Albumin Globulin Ratio 1.6 (0.9-2); Albumin Level 3.6 gm/dl (3.4-5.0); Alkaline Phosphatase 43 U/L (34-104); Anion Gap 10 (3-11); Aspartate Aminotransferase 14 U/L (13-39); BUN Creatinine Ratio 12.2 (10-20); Bilirubin,Total 0.7 mg/dl (0.2-1.0); Blood Urea Nitrogen 10 mg/dl (6-23); Calcium 8.9 mg/dl (8.5-10.1); Carbon Dioxide 24 mmol/L (21-32); Chloride 103 mmol/L (98-107); Est GFR (African American) 73.5 ml/min; Est GFR (Non-African American) 63.4 ml/min; Globulin 2.3 gm/dl (2.5-4.0); Glucose 154 mg/dl (70-99(Fasting)); Potassium 3.6 mmol/L (3.5-5.1); Sodium 137 mmol/L (136-145); Total Protein 5.9 gm/dl (6.0-8.3)
[2022-05-24 05:31] LABS: Appearance Urine Clear (Clear); Bilirubin Urine Negative (Negative); Blood Urine Negative (Negative); Color Urine Dark Yellow; Glucose Urine UA Negative (Negative); Ketones Urine 3+ (Negative); Leukocyte Esterase Urine Negative (Negative); Nitrite Urine Negative (Negative); Protein Urine Negative (Negative); Specific Gravity Urine 1.014 (1.000-1.030); Urobilinogen Urine Negative (Negative); pH Urine 7.5 (4.5-7.5)
[2022-05-24] MEDS ORDERED: ONDANSETRON INJ 2 MG/ML 2 ML VIAL IV STA (05:39)
[2022-05-24 06:07] LABS: Influenza A virus by PCR Negative (Neg); Influenza B virus by PCR Negative (Neg); RSV by PCR Negative (Neg)
[2022-05-24 06:20] LABS: SARS CoV2 RNA(COVID-19) InHosp POSITIVE (Negative)
[2022-05-24] MEDS ORDERED: OPTIRAY 300 100mL IV ONE (06:28)
[2022-05-24] MEDS ORDERED: METOPROLOL TARTRATE 1 MG/ML VIAL IV STA ×2 (06:36→07:09)
--- NOTE | 2022-05-24 07:09 | Emergency Department Note ---
Impression & Plan PAF (paroxysmal atrial fibrillation), Atrial fibrillation with RVR ED Provider Note CHIEF COMPLAINT: Weakness, vomiting HISTORY OF PRESENT ILLNESS: This 87-year-old female patient presents to the emergency department with complaints of weakness, nausea and vomiting. Patient's daughter states she was at the wall. Yesterday morning and ate a healthy breakfast. She is uncertain if she ate lunch or dinner. Patient called her in the middle of the night and asked her to bring her to the hospital as she was nauseous. She did not begin vomiting apparently until arrival. Patient denies any specific complaints otherwise. There is no report of fever or urinary symptoms. Patient denies any falling or head injuries. She is anticoagulated with apixaban second to a history of PE. Apparently the patient had COVID 1 month ago. REVIEW OF SYSTEMS: A review of systems was performed with positives and pertinent negatives listed in the history of present illness. 10 systems were reviewed and are otherwise negative. ALLERGIES: see below MEDICATIONS: see below PMH: see below SOCIAL HISTORY: see below DDx: Infection, dehydration, metabolic abnormality, hypo/hyperglycemia, dionna ctrolyte disturbance, anemia, hypoxia, cardiac sources, intracerebral event, toxicologic, neurologic, as well as other pathologies. PHYSICAL EXAM: Vital signs reviewed. General: Chronically ill-appearing 87 yo female in no significant distress. HEENT: No scleral icterus, PERRLA, neck supple. Dry MM Cardiovascular: Regular rate and rhythm, no extra sounds. Pulmonary: Clear to auscultation bilaterally, normal work of breathing. Abdomen: Soft, nontender, nondistended, positive bowel sounds. Musculoskeletal: Atraumatic, no peripheral edema. Neurologic: Patient awake alert and answers most questions, follows commands. Skin: Warm, dry, no rash EMERGENCY DEPARTMENT COURSE/MDM: Patient was evaluated and appeared to be in no significant distress. IV access was obtained and laboratory work was drawn. The patient was placed on the monitoring tech and noted to be in a normal sinus rhythm. She was hydrated with normal saline solution. Patient's vital signs have remained stable. Patient was initially found to be in a normal sinus rhythm on telemetry but had converted to a rapid atrial fibrillation. She was given IV metoprolol 5 mg x 2. UA is negative for infection. Patient is curre ntly anticoagulated with Eliquis due to a history of PE. She has been in the emergency department multiple times and per her daughter she does not feel of the in-home situation is safe. She states her is elderly and demented and the patient is the primary caregiver. She feels the patient should be hospitalized under any circumstance. Patient will be evaluated by the hospitalist service for admission and further management. MONITORING: An order for cardiac monitoring was placed and the patient is noted to be in a normal sinus rhythm at 71 beats per minute. RADIOLOGY: See below EKG: Normal sinus rhythm at [address] segments. No PVC, no PAC. QTc is 477. When compared to March 15, 2022, nonspecific T wave abnormality is improved. DISPOSITION: Admission Past Med/Surg History Medical History Acute UTI Asthma COVID Encephalopathy, metabolic Exertional chest pain Factor V Leiden, prothrombin gene mutation Failure of outpatient treatment High blood pressure Hyperlipidemia Lab test negative for COVID-19 virus Left arm pain Nausea Nausea Precordial chest pain Pulmonary embolism Syncope TIA (transient ischemic attack) UTI due to Klebsiella species Weakness Weakness Surgical History Hx of cholecystectomy S/P appy S/P cataract extraction S/P spinal surgery Family History Brother Lung cancer Father Lung cancer Sister Pancreatic cancer Social History Smoking Status: Never smoker Second Hand Exposure: No; Do You Dip or Chew Tobacco: No; Tobacco Cessation Education Requested by Patient: No Hx Alcohol Use: Yes Alcohol type: wine Alcohol Intake Frequency: Monthly or Less Hx Substance Use: No Preferred Language: Guyanese Communication Ability: Effective 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 Beliefs That Will Affect Care: None marital status: Current Living Situation: Spouse How many Children do You have: 5 Other Information That Helps Us Care for You: No Feels Safe at Home: Yes Safety Concerns: Feels Safe At This Time Assistive Devices: None Allergies Allergies Allergy/AdvReac Type Severity Reaction Status Date / Time morphine Allergy Severe STOPS Verified 02/19/22 16:07 BREATHING moxifloxacin Allergy Intermediate CONFUSION/NIGHT Verified 02/19/22 16:07 CRANE bacitracin Allergy Mild Rash Verified 02/19/22 16:07 polymyxin B Allergy Mild Rash Verified 02/19/22 16:07 tramadol Allergy Unknown CAN'T Verified 02/19/22 16:07 REMEMBER fluorouracil AdvReac Intermediate didn't Verified 02/19/22 16:07 feel good CHIRAG CREAM AdvReac Severe WENT Uncoded 02/19/22 16:07 BALISTIC Home Meds Home Medications Medication Instructions Recorded Confirmed atenolol 25 mg tablet 12.5 mg PO DAILY 07/03/20 05/24/22 aspirin 81 mg tablet,delayed 81 mg PO DAILY 12/11/21 05/24/22 release atorvastatin 10 mg tablet 10 mg PO DAILY 12/24/21 05/24/22 losartan 25 mg tablet 12.5 mg PO DAILY 02/19/22 05/24/22 Previous Rx's Medication Instructions Recorded apixaban 5 mg tablet (Eliquis) 5 mg PO BID #74 tabs 02/20/22 L.acidop,casei,lactis,rham-B.lact,katie 2 cap PO DAILY #14 caps 02/21/22 625 mg (10 billion cell) capsule (Advanced Probiotic) Results & Data (ED) Vital Signs Vital Signs - 24 hr 05/24/22 04:01 05/24/22 04:19 05/24/22 04:14 Temperature 36.4 C L Temperature Source Oral Pulse Rate 79 Pulse Rate from SpO2 Sensor Respiratory Rate 20 Respiratory Effort / Characteristics Non-Labored Spontaneous Non-Labored Respiratory Depth Normal Normal Blood Pressure 106/55 L Blood Pressure Mean 72 Pulse Oximetry 95 97 97 Oxygen Delivery Method Room Air Room Air Room Air Sepsis Recent Fever Within 48 Hours No Sepsis New/Unexplained Change in Mental Status N/A Sepsis Action Taken by Nursing No Action Required 05/24/22 06:00 05/24/22 04:11 05/24/22 04:16 Temperature Temperature Source Pulse Rate 81 74 Pulse Rate from SpO2 Sensor 73 Respiratory Rate 24 20 Respiratory Effort / Characteristics Non-Labored Respiratory Depth Normal Blood Pressure Blood Pressure Mean Pulse Oximetry 93 Oxygen Delivery Method Sepsis Recent Fever Within 48 Hours Sepsis New/Unexplained Change in Mental Status Sepsis Action Taken by Nursing 05/24/22 04:16 05/24/22 04:20 05/24/22 04:30 Temperature Temperature Source Pulse Rate 69 Pulse Rate from SpO2 Sensor 69 Respiratory Rate 10 L Respiratory Effort / Characteristics Respiratory Depth Blood Pressure 109/48 L 117/59 L Blood Pressure Mean 68 78 Pulse Oximetry 95 Oxygen Delivery Method Sepsis Recent Fever Within 48 Hours Sepsis New/Unexplained Change in Mental Status Sepsis Action Taken by Nursing 05/24/22 04:30 05/24/22 04:40 05/24/22 04:50 Temperature Temperature Source Pulse Rate 71 68 63 Pulse Rate from SpO2 Sensor 73 68 62 Respiratory Rate 19 19 18 Respiratory Effort / Characteristics Respiratory Depth Blood Pressure Blood Pressure Mean Pulse Oximetry 97 97 97 Oxygen Delivery Method Sepsis Recent Fever Within 48 Hours Sepsis New/Unexplained Change in Mental Status Sepsis Action Taken by Nursing 05/24/22 05:00 05/24/22 05:00 05/24/22 05:10 Temperature Temperature Source Pulse Rate 68 67 Pulse Rate from SpO2 Sensor 68 66 Respiratory Rate 19 20 Respiratory Effort / Characteristics Respiratory Depth Blood Pressure 124/57 L Blood Pressure Mean 79 Pulse Oximetry 94 97 Oxygen Delivery Method Sepsis Recent Fever Within 48 Hours Sepsis New/Unexplained Change in Mental Status Sepsis Action Taken by Nursing 05/24/22 05:20 05/24/22 05:30 05/24/22 05:30 Temperature Temperature Source Pulse Rate 67 69 Pulse Rate from SpO2 Sensor 67 69 Respiratory Rate 14 22 Respiratory Effort / Characteristics Respiratory Depth Blood Pressure 120/54 L Blood Pressure Mean 76 Pulse Oximetry 97 95 Oxygen Delivery Method Sepsis Recent Fever Within 48 Hours Sepsis New/Unexplained Change in Mental Status Sepsis Action Taken by Nursing 05/24/22 05:40 05/24/22 05:50 05/24/22 06:25 Temperature Temperature Source Pulse Rate 145 H 121 H 127 H Pulse Rate from SpO2 Sensor 152 H 117 H 132 H Respiratory Rate 20 21 22 Respiratory Effort / Characteristics Respiratory Depth Blood Pressure Blood Pressure Mean Pulse Oximetry 97 94 98 Oxygen Delivery Method Sepsis Recent Fever Within 48 Hours Sepsis New/Unexplained Change in Mental Status Sepsis Action Taken by Nursing 05/24/22 06:30 05/24/22 07:06 Temperature Temperature Source Pulse Rate 118 H 130 H Pulse Rate from SpO2 Sensor 122 H Respiratory Rate 20 Respiratory Effort / Characteristics Respiratory Depth Blood Pressure 122/48 L Blood Pressure Mean Pulse Oximetry 93 Oxygen Delivery Method Sepsis Recent Fever Within 48 Hours Sepsis New/Unexplained Change in Mental Status Sepsis Action Taken by [facility] Medications Current Medication List: was personally reviewed by me Laboratory Data Attestation: I reviewed the patient's lab results. Result diagrams: 05/25/22 07:03 05/25/22 07:03 Lab Results 05/24/22 05/24/22 05/24/22 Range/Units 04:10 04:10 04:10 WBC 4.59 L (4.8-10.8) K/ul RBC 3.63 L (3.93-5.22) M/uL Hgb 10.6 L (12.0-16.0) g/dl Hct 32.4 L (34.1-44.9) % MCV 89.3 (80.0-100.0) fL MCH 29.2 (25.0-34.0) pg MCHC 32.7 (32.0-36.0) g/dL RDW Std Deviation 45.0 (36.4-46.3) fL RDW Coeff of Byron 13.8 (11.5-14.5) % Plt Count 173 (130-400) K/uL MPV 10.3 (9.4-12.3) fL Immature Gran % (Auto) 0.4 % Neut % (Auto) 54.9 % Lymph % (Auto) 30.7 % [place] % (Auto) 9.2 % Eos % (Auto) 4.1 % Baso % (Auto) 0.7 % Neut # (Auto) 2.52 (1.4-6.5) K/uL Lymph # (Auto) 1.41 (1.2-3.4) K/uL [place] # (Auto) 0.42 (0.24-0.82) K/uL Eos # (Auto) 0.19 (0-0.50) K/uL Baso # (Auto) 0.03 (0-0.2) K/uL Immature Gran # (Auto) 0.02 (0.00-0.02) K/uL Sodium 137 (136-145) mmol/L Potassium 3.6 (3.5-5.1) mmol/L Chloride 103 (98-107) mmol/L Carbon Dioxide 24 (21-32) mmol/L Anion Gap 10 (3-11) BUN 10 (6-23) mg/dl Creatinine 0.82 (0.6-1.2) mg/dl Est Cr Clr Drug Dosing Not Reportable Est GFR ( Amer) 73.5 ml/min Est GFR (Non-Af Amer) 63.4 ml/min BUN/Creatinine Ratio 12.2 (10-20) Glucose 154 H (70-99(Fasting)) mg/dl Calcium 8.9 (8.5-10.1) mg/dl Magnesium (1.7-2.4) mg/dl Total Bilirubin 0.7 (0.2-1.0) mg/dl AST 14 (13-39) U/L ALT 7 (7-52) U/L Alkaline Phosphatase 43 (34-104) U/L Total Protein 5.9 L (6.0-8.3) gm/dl Albumin 3.6 (3.4-5.0) gm/dl Globulin 2.3 L (2.5-4.0) gm/dl Albumin/Globulin Ratio 1.6 (0.9-2) TSH 2.789 (0.300-4.500) uIu/ml Urine Color Urine Appearance (Clear) Urine pH (4.5-7.5) Ur Specific [place] (1.000-1.030) Urine Protein (Negative) Urine Glucose (UA) (Negative) Urine Ketones (Negative) Urine Blood (Negative) Urine Nitrite (Negative) Urine Bilirubin (Negative) Urine Urobilinogen (Negative) Ur Leukocyte Esterase (Negative) SARS-CoV-2 (PCR) (Negative) Influenza Type A (PCR) (Neg) Influenza Type B (PCR) (Neg) RSV (RT-PCR) (Neg) 05/24/22 05/24/22 05/24/22 Range/Units 04:10 05:05 05:15 WBC (4.8-10.8) K/ul RBC (3.93-5.22) M/uL Hgb (12.0-16.0) g/dl Hct (34.1-44.9) % MCV (80.0-100.0) fL MCH (25.0-34.0) pg MCHC (32.0-36.0) g/dL RDW Std Deviation (36.4-46.3) fL RDW Coeff of Byron (11.5-14.5) % Plt Count (130-400) K/uL MPV (9.4-12.3) fL Immature Gran % (Auto) % Neut % (Auto) % Lymph % (Auto) % [place] % (Auto) % Eos % (Auto) % Baso % (Auto) % Neut # (Auto) (1.4-6.5) K/uL Lymph # (Auto) (1.2-3.4) K/uL [place] # (Auto) (0.24-0.82) K/uL Eos # (Auto) (0-0.50) K/uL Baso # (Auto) (0-0.2) K/uL Immature Gran # (Auto) (0.00-0.02) K/uL Sodium (136-145) mmol/L Potassium (3.5-5.1) mmol/L Chloride (98-107) mmol/L Carbon Dioxide (21-32) mmol/L Anion Gap (3-11) BUN (6-23) mg/dl Creatinine (0.6-1.2) mg/dl Est Cr Clr Drug Dosing Est GFR ( Amer) ml/min Est GFR (Non-Af Amer) ml/min BUN/Creatinine Ratio (10-20) Glucose (70-99(Fasting)) mg/dl Calcium (8.5-10.1) mg/dl Magnesium 1.9 (1.7-2.4) mg/dl Total Bilirubin (0.2-1.0) mg/dl AST (13-39) U/L ALT (7-52) U/L Alkaline Phosphatase (34-104) U/L Total Protein (6.0-8.3) gm/dl Albumin (3.4-5.0) gm/dl Globulin (2.5-4.0) gm/dl Albumin/Globulin Ratio (0.9-2) TSH (0.300-4.500) uIu/ml Urine Color Dark Yellow Urine Appearance Clear (Clear) Urine pH 7.5 (4.5-7.5) Ur Specific [place] 1.014 (1.000-1.030) Urine Protein Negative (Negative) Urine Glucose (UA) Negative (Negative) Urine Ketones 3+ H (Negative) Urine Blood Negative (Negative) Urine Nitrite Negative (Negative) Urine Bilirubin Negative (Negative) Urine Urobilinogen Negative (Negative) Ur Leukocyte Esterase Negative (Negative) SARS-CoV-2 (PCR) POSITIVE A* (Negative) Influenza Type A (PCR) Negative (Neg) Influenza Type B (PCR) Negative (Neg) RSV (RT-PCR) Negative (Neg) Administered Medications Discontinued Medications Apixaban (Apixaban 5 Mg Tablet) 5 mg PO BID KYLIE Stop: 06/23/22 20:59 Last Admin: 05/25/22 08:09 Dose: 5 mg Documented By: Admin: 05/24/22 21:49 Dose: 5 mg Documented By: BETHANY Aspirin (Aspirin 81 Mg Ectab) 81 mg PO DAILY KYLIE Stop: 06/24/22 08:59 Last Admin: 05/25/22 08:08 Dose: 81 mg Documented By: ALFA Atenolol (Atenolol 25 Mg Tablet) 12.5 mg PO DAILY KYLIE Stop: 06/24/22 08:59 Last Admin: 05/25/22 08:08 Dose: 12.5 mg Documented By: ALFA Atorvastatin Calcium (Atorvastatin 10 Mg Tab) 10 mg PO DAILY KYLIE Stop: 06/24/22 08:59 Last Admin: 05/25/22 08:08 Dose: 10 mg Documented By: ALFA Sodium Chloride (Nss 1000ml) 1,000 mls @ 125 mls/hr IV .Q8H KYLIE Stop: 06/23/22 04:29 Last Infusion: 05/25/22 08:15 Dose: 0 mls/hr Documented By: Infusion: 05/25/22 04:13 Dose: 0 mls/hr Documented By: Admin: 05/25/22 04:13 Dose: 125 mls/hr Documented By: Infusion: 05/25/22 04:08 Dose: 125 mls/hr Documented By: Admin: 05/24/22 20:08 Dose: 125 mls/hr Documented By: Infusion: 05/24/22 20:08 Dose: 125 mls/hr Documented By: Admin: 05/24/22 14:13 Dose: 125 mls/hr Documented By: Infusion: 05/24/22 14:13 Dose: 0 mls/hr Documented By: Admin: 05/24/22 04:52 Dose: 125 mls/hr Documented By: ROMULO Ioversol (Optiray 300 100ml) 100 ml IV ONCE ONE Stop: 05/24/22 06:29 Last Admin: 05/24/22 06:29 Dose: 93 ml Documented By: DELON Lactobacillus Acidophilus (Advanced Probiotic 1250 Mg Capsule) 2 cap PO DAILY KYLIE Stop: 06/24/22 08:59 Last Admin: 05/25/22 08:09 Dose: 2 cap Documented By: ALFA Losartan Potassium (Losartan Potassium 25 Mg Tab) 12.5 mg PO DAILY KYLIE Stop: 06/24/22 08:59 Last Admin: 05/25/22 08:09 Dose: 12.5 mg Documented By: ALFA Metoprolol Tartrate (Metoprolol Tartrate 1 Mg/Ml Vial) 5 mg IV NOW STA Stop: 05/24/22 06:37 Last Admin: 05/24/22 07:06 Dose: 5 mg Documented By: AGUSTO Metoprolol Tartrate (Metoprolol Tartrate 1 Mg/Ml Vial) 5 mg IV NOW STA Stop: 05/24/22 07:10 Last Admin: 05/24/22 07:57 Dose: Not Given Documented By: AGUSTO Ondansetron HCl (Ondansetron Inj 2 Mg/Ml 2 Ml Vial) 4 mg IV NOW STA Stop: 05/24/22 05:40 Last Admin: 05/24/22 05:55 Dose: 4 mg Documented By: ROMULO Blood Pressure Blood Pressure Findings: Normal blood pressure Blood Pressure Disposition: did not require urgent referral Discharge Plan Visit Data Chief Complaint: Nausea Stated Complaint: SICK IN STOMACH, HOT ED Provider: Jeannette Hidalgo Discharge Problem: PAF (paroxysmal atrial fibrillation), Atrial fibrillation with RVR Patient Disposition: Admitted As Inpatient Condition: Fair Discharge Instructions Interventions: ED Discharge Assessment Last Done: 05/24/22 12:20
--- NOTE | 2022-05-24 07:22 | CT Scan Report ---
CT OF THE ABDOMEN AND PELVIS WITH CONTRAST CLINICAL HISTORY: Abdominal pain. Vomiting. COMPARISON STUDY: CT of the abdomen and pelvis February 19, 2022. TECHNIQUE: Following IV administration of 93 mL of Optiray, axial images of the abdomen and pelvis we re obtained from the lung bases to the proximal femurs. Images were reviewed in the axial, sagittal, and coronal planes. IV contrast was administered without complication. Automated exposure control wa s utilized for the study. A dose lowering technique was utilized adhering to the principles of ALARA . CT DOSE: 255.55 mGy.cm FINDINGS: Mild interlobular septal thickening is noted within the lung bases. There is a trace left p leural effusion. No pneumatosis, free air or portal venous gas is present. Liver, spleen, adrenal gla nds, kidneys and pancreas are unremarkable. There is no biliary or pancreatic ductal dilatation. Ther e is no evidence for a bowel obstruction. Apparent wall thickening of portions of the colon is due to underdistention. Moderate amount stool within the rectum is noted. Colonic diverticulosis is noted w ithout evidence for acute diverticulitis. Mesenteric vessels are prominent. This may be due to mild v olume overload. There is trace pelvic ascites. There may be trace gas within the bladder. Old L1 comp ression fracture is noted. There is levoscoliosis of the spine. No acute fractures within the pelvis, hips or lumbar spine. There is no lymphadenopathy. Moderate plaque of the abdominal aorta is noted. IMPRESSION: 1. No bowel obstruction. No bowel wall thickening. Apparent wall thickening of portions of the colon is likely due to underdistention. 2. Evidence for mild volume overload. Trace left pleural effusion and trace ascites. Mild interstitia l pulmonary edema. 3. Colonic diverticulosis. No evidence for acute diverticulitis. ACT 112: Negative or not required by law. Electronically signed by: James Tucker M.D. 05/24/2022 7:19 AM
--- NOTE | 2022-05-24 08:16 | XRay Report ---
SINGLE VIEW CHEST CLINICAL HISTORY: Generalized weakness. FINDINGS: An AP, portable, upright chest radiograph is compared to study dated 03/23/2022 and correlate d with chest CT dated 02/19/2022. The cardiomediastinal silhouette is unremarkable noting atherosclero tic calcification of the thoracic aorta. Chronic interstitial thickening is similar to previous. Ther e is mild bibasilar scarring/atelectasis. No airspace consolidation or large pleural effusion is iden tified. No pneumothorax is seen. The skeletal structures are osteopenic. The bony thorax is grossly i ntact. Degenerative change and scoliosis is noted in the thoracic spine. IMPRESSION: No active disease in the chest. ACT 112: Negative or not required by law. Electronically signed by: Edil Tamez M.D. 05/24/2022 8:14 AM
--- NOTE | 2022-05-24 08:44 | History & Physical Report ---
Date of Service May 24, 2022 Assessment & Plan (1) Nausea: (2) Weakness: (3) Pulmonary embolism: (4) High blood pressure: (5) Hyperlipidemia: (6) Factor V Leiden, prothrombin gene mutation: Plan Ms. Arce is an 87 year old female who presented to [facility] ED with her daughter Lacy this morning for increased generalized weakness and 'just not feeling well', along with feeling nauseated.Recent admit 02/19-02/20 with new onset Afib and PE; she was started on Eloquis. New Onset Atrial Fibrillation: H/O Pulmonary Embolism In ED, pt was NSR; went into Afib 90-110; Received two doses of Metoprolol 5mg IV; returned to NSR. Last ECHO Sep 2020: EF 64% Atrial Fibrillation was not captured on ECG in ED Pulmonary Embolism diagnosed 02/19 - started on Eloquis (questionable compliance) BMP pending D-Dimer pending HsTroponins pending Nausea: No nausea at rest. Has Zofran ordered PRN Weakness: Likely multifactorial; recent covid infection, progressive deconditioning, cardiac dysfunction PT/OT COVID-19: Pt is vaccinated with two boosters Home test positive 05/01 and positive PCR; asymptomatic per daughter; no treatment outside of OTC Currently testing positive in ED; as patient had an uncomplicated course and it has been > 10 days, discussed with Melinda Ward who supported DC of airborne precautions Procal pending CRP pending HTN: Stable. BP 121/65. Continue Atenolol and Losartan Monitor for hypotension H/O paroxysmal SVT: Has followed with Dr. aMrie, last appt 01/2021. HLD: Stable; continue Atorvastatin Factor V Leiden: Hypercoaguable at baseline with PE (Eloquis) Hgb 10.6 Appreciate cards recc regarding next steps with VTE prophylaxis Dispo: PCP: Dr. Benjamin Code Status: DNR/DNI as discussed with pt and daughter Contact: Dana daughter and POA: [phone] VTE Prophylaxis: TEDS Case management: Plan to return home; however, in speaking with pt daughter; concerns about her cognition worsening. While pt can participate in conversation and is appropriate, likely her conditions are becoming too complex and may benefit from discussion regarding placement snf. History of Present Illness Chief Complaint: nausea and vomting Primary Care Provider: Gucci Benjamin MD Ms. Arce is an 87 year old female who presented to [facility] ED with her daughter Lacy this morning for increased generalized weakness and 'just not feeling well', along with feeling nauseated. Additional PMH includes: PE, HTN, HLD, Asthma, Factor V Leiden, recurrent UTIs. The patient just had covid-19 and tested positive 13 days ago. She had a recent admission February 19-02/20 where she was diagnosed with new onset [place] Fibrillation and PE for which she was started on Eloquis. Pt was noted to be in NSR on arrival via ECG; however, did go into Afib, received one dose of Metoprolol and then returned to NSR (Afib was not captured on ECG). Her last ECHO was September 2020 with an EF of 64%. Patient denies BECKETT,dizziness, SOB, CP, palpitations, appetite changes, diarrhea, night sweats, chills. Typically, patient is able to perform her ADL's independently. No leukocytosis noted in ED. Patient is lying in her hospital bed in no apparent distress, able to hold full conversation without use of accessory muscles. Patient is AAOx3 and follows commands appropriately. She reports that she lives with her , Delvis, and her two daughters do frequent check ins. Patient will be admitted to med/surg telemetry for further evaluation and management. Please see A/P for further details. Allergies Allergy/AdvReac Type Severity Reaction Status Date / Time morphine Allergy Severe STOPS Verified 02/19/22 16:07 BREATHING moxifloxacin Allergy Intermediate CONFUSION/NIGHT Verified 02/19/22 16:07 CRANE bacitracin Allergy Mild Rash Verified 02/19/22 16:07 polymyxin B Allergy Mild Rash Verified 02/19/22 16:07 tramadol Allergy Unknown CAN'T Verified 02/19/22 16:07 REMEMBER fluorouracil AdvReac Intermediate didn't Verified 02/19/22 16:07 feel good CHIRAG CREAM AdvReac Severe WENT Uncoded 02/19/22 16:07 BALISTIC Home Medications Medication Instructions Recorded Confirmed Type atenolol 25 mg tablet 12.5 mg PO DAILY 07/03/20 05/24/22 History aspirin 81 mg tablet,delayed 81 mg PO DAILY 12/11/21 05/24/22 History release atorvastatin 10 mg tablet 10 mg PO DAILY 12/24/21 05/24/22 History losartan 25 mg tablet 12.5 mg PO DAILY 02/19/22 05/24/22 History apixaban 5 mg tablet (Eliquis) 5 mg PO BID #74 tabs 02/20/22 05/24/22 Rx L.acidop,casei,lactis,rham-B.lact,ktaie 2 cap PO DAILY #14 caps 02/21/22 05/24/22 Rx 625 mg (10 billion cell) capsule (Advanced Probiotic) Past Med/Surg History Medical History Acute UTI Asthma Encephalopathy, metabolic Exertional chest pain Factor V Leiden, prothrombin gene mutation Failure of outpatient treatment High blood pressure Hyperlipidemia Lab test negative for COVID-19 virus Left arm pain Nausea Nausea Precordial chest pain Syncope TIA (transient ischemic attack) Weakness Surgical History Hx of cholecystectomy S/P appy S/P cataract extraction S/P spinal surgery Family History Brother Lung cancer Father Lung cancer Sister Pancreatic cancer Social History Smoking Status: Never smoker Second Hand Exposure: No; Do You Dip or Chew Tobacco: No; Tobacco Cessation Education Requested by Patient: No Hx Alcohol Use: Yes Alcohol type: wine Alcohol Intake Frequency: Monthly or Less Hx Substance Use: No Preferred Language: Citizen Of [place] Communication Ability: Effective Digital Marketing Strategist Required: No Beliefs That Will Affect Care: None marital status: Current Living Situation: Spouse How many Children do You have: 5 Other Information That Helps Us Care for You: No Feels Safe at Home: Yes Safety Concerns: Feels Safe At This Time Assistive Devices: None Review of Systems Review of Systems: Neuro: (-) Falls, trauma, slurred speech HEENT: (-) BECKETT, dizziness, dysphagia, visual or auditory changes CV: (-) CP, palpitations, swelling Resp: (-) SOB GI: (-) appetite changes, N/V/D, bowel changes : (-) urinary changes Skin: (-) rashes Psych: (-) anxiety, depression Physical Exam Physical Exam: Neuro: AAOx3, some confusion, PERRLA, no aphagia, memory changes, CNII-XII grossly intact HEENT: head normocephalic, moist mucus membranes CV: S1/S2, (-) M/G/R, (-) edema, cap refill < 3 seconds Resp: Lungs CTA in all garcia. On RA GI: Abdomen S/NT/ND, Ax4 bowel sounds, (-) CVA tenderness Musculoskeletal: 5/5 B/L UE strength, 5/5 B/L LE strength. No gait disturbance Skin: (-) rashes , (-) erythema. Psych: euthymic mood Results & Data Results & Data ([facility]) Vital Signs (Past 12 Hours) Vital Signs Temp Pulse Pulse Resp BP BP Pulse Ox 05/24/22 07:57 68 121/65 05/24/22 07:00 113 H 18 122/48 L 100 05/24/22 07:06 130 H 122/48 L 05/24/22 06:30 118 H 20 93 05/24/22 06:25 127 H 22 98 05/24/22 05:50 121 H 21 94 05/24/22 05:40 145 H 20 97 05/24/22 05:30 69 22 95 05/24/22 05:30 120/54 L 05/24/22 05:20 67 14 97 05/24/22 05:10 67 20 97 05/24/22 05:00 68 19 94 05/24/22 05:00 124/57 L 05/24/22 04:50 63 18 97 05/24/22 04:40 68 19 97 05/24/22 04:30 71 19 97 05/24/22 04:30 117/59 L 05/24/22 04:20 69 10 L 95 05/24/22 04:16 109/48 L 05/24/22 04:16 74 20 93 05/24/22 04:11 81 24 05/24/22 04:14 97 05/24/22 04:19 97 05/24/22 04:01 36.4 C L 79 20 106/55 L 95 O2 Del Method O2 Flow Rate 05/24/22 07:57 05/24/22 07:00 Nasal Cannula 3 05/24/22 07:06 05/24/22 06:30 05/24/22 06:25 05/24/22 05:50 05/24/22 05:40 05/24/22 05:30 05/24/22 05:30 05/24/22 05:20 05/24/22 05:10 05/24/22 05:00 05/24/22 05:00 05/24/22 04:50 05/24/22 04:40 05/24/22 04:30 05/24/22 04:30 05/24/22 04:20 05/24/22 04:16 05/24/22 04:16 05/24/22 04:11 05/24/22 04:14 Room Air 05/24/22 04:19 Room Air 05/24/22 04:01 Room Air Laboratory Results Short CBC 05/24/22 Range/Units 04:10 WBC 4.59 L (4.8-10.8) K/ul Hgb 10.6 L (12.0-16.0) g/dl Hct 32.4 L (34.1-44.9) % Plt Count 173 (130-400) K/uL BMP 05/24/22 04:10 Sodium 137 Potassium 3.6 Chloride 103 Carbon Dioxide 24 BUN 10 Creatinine 0.82 Glucose 154 H Calcium 8.9 Liver Function 05/24/22 Range/Units 04:10 Total Bilirubin 0.7 (0.2-1.0) mg/dl AST 14 (13-39) U/L ALT 7 (7-52) U/L Alkaline Phosphatase 43 (34-104) U/L Albumin 3.6 (3.4-5.0) gm/dl Urine 05/24/22 Range/Units 05:15 Urine Color Dark Yellow Urine Appearance Clear (Clear) Urine pH 7.5 (4.5-7.5) Ur Specific [place] 1.014 (1.000-1.030) Urine Protein Negative (Negative) Urine Glucose (UA) Negative (Negative) Diagnostic Findings Chest X-Ray 05/24/22 04:14 SINGLE VIEW CHEST CLINICAL HISTORY: Generalized weakness. FINDINGS: An AP, portable, upright chest radiograph is compared to study dated 03/23/2022 and correlated with chest CT dated 02/19/2022. The cardiomediastinal silhouette is unremarkable noting atherosclerotic calcification of the thoracic aorta. Chronic interstitial thickening is similar to previous. There is mild bibasilar scarring/atelectasis. No airspace consolidation or large pleural effusion is identified. No pneumothorax is seen. The skeletal structures are osteopenic. The bony thorax is grossly intact. Degenerative change and scoliosis is noted in the thoracic spine. IMPRESSION: No active disease in the chest. ACT 112: Negative or not required by law. Electronically signed by: Edil Tamez M.D. 05/24/2022 8:14 AM Abdomen/Pelvis CT 05/24/22 05:40 CT OF THE ABDOMEN AND PELVIS WITH CONTRAST CLINICAL HISTORY: Abdominal pain. Vomiting. COMPARISON STUDY: CT of the abdomen and pelvis February 19, 2022. TECHNIQUE: Following IV administration of 93 mL of Optiray, axial images of the abdomen and pelvis were obtained from the lung bases to the proximal femurs. Images were reviewed in the axial, sagittal, and coronal planes. IV contrast was administered without complication. Automated exposure control was utilized for the study. A dose lowering technique was utilized adhering to the principles of ALARA. CT DOSE: 255.55 mGy.cm FINDINGS: Mild interlobular septal thickening is noted within the lung bases. There is a trace left pleural effusion. No pneumatosis, free air or portal ve nous gas is present. Liver, spleen, adrenal glands, kidneys and pancreas are unremarkable. There is no biliary or pancreatic ductal dilatation. There is no evidence for a bowel obstruction. Apparent wall thickening of portions of the colon is due to underdistention. Moderate amount stool within the rectum is noted. Colonic diverticulosis is noted without evidence for acute diverticulitis. Mesenteric vessels are prominent. This may be due to mild volume overload. There is trace pelvic ascites. There may be trace gas within the bladder. Old L1 compression fracture is noted. There is levoscoliosis of the spine. No acute fractures within the pelvis, hips or lumbar spine. There is no lymphadenopathy. Moderate plaque of the abdominal aorta is noted. IMPRESSION: 1. No bowel obstruction. No bowel wall thickening. Apparent wall thickening of portions of the colon is likely due to underdistention. 2. Evidence for mild volume overload. Trace left pleural effusion and trace ascites. Mild interstitial pulmonary edema. 3. Colonic diverticulosis. No evidence for acute diverticulitis. ACT 112: Negative or not required by law. Electronically signed by: James Tucker M.D. 05/24/2022 7:19 AM ECG Additional Comments: NSR HR 67 MOSHE 178ms QRS 94 ms QTc 477 Code Status & VTE Plan Code Status DNR/DNI in the event of cardiac and respiratory arrest VTE Prophylaxis Plan VTE Prophylaxis will be ordered: Yes Supervising Physician Co-Signing Physician Notes 87-year-old lady with PMH of possible undiagnosed dementia, PE, HLD, HTN, asthma, factor V Leiden mutation and recurrent UTI presented to our ED due to feeling nauseous and not feeling well since night custodian on the day of arrival. Patient denies any fever/urinary symptoms/acute changes in bowel habits/chest pain/funny sensation in the chest/belly pain/sore throat/cough/other review of symptoms. Patient reports improvement in her nausea at bedside exam. Admitting EKG with NSR. Telemetry monitoring, BNP, troponin. A. fib over telemetry, currently nsr, appears new, cardiology consult, echo. Admitting urinalysis and TSH WNL. Patient was diagnosed with COVID few weeks ago, was positive at ED. Per outpatient chart review, patient documented to have COVID on 05/01/2022 and telephonic conversation. Patient has been vaccinated against COVID 3 times per outpatient chart. PT/OT, CM to assist with DC planning Upon examination: GENERAL: Alert and oriented x3. NAD, on RA. HEENT: No pallor, no icterus. Pupils equal, round and reactive to light. Oral mucosa moist. NECK: No JVD, no neck masses. HEART: S1 and S2 heard. Regular rate and rhythm. No murmur, no gallop. RESPIRATORY SYSTEM: Normal AP diameter. No accessory muscle use. No wheezing, no crackles. ABDOMEN: Soft, bowel sounds present, nontender, no distention. CENTRAL NERVOUS SYSTEM: No facial droop. Speech is clear. Obeys simple commands. Moves extremities. EXTREMITIES: No edema, no erythema seen. I have seen and examined the patient and have discussed the case with the provider above. I agree with the assessment and plan as stated. (1) Pulmonary embolism Acute cor pulmonale presence: unspecified Chronicity: unspecified Pulmonary embolism type: unspecified Qualified Code(s): I26.99 - Other pulmonary embolism without acute cor pulmonale
[2022-05-24 12:46] LABS: Appearance Urine Clear (Clear); Bilirubin Urine Negative (Negative); Blood Urine Negative (Negative); Color Urine Yellow; Glucose Urine UA Negative (Negative); Ketones Urine Trace (Negative); Leukocyte Esterase Urine Negative (Negative); Nitrite Urine Negative (Negative); Protein Urine Negative (Negative); Specific Gravity Urine 1.022 (1.000-1.030); Urobilinogen Urine Negative (Negative); pH Urine 7.5 (4.5-7.5)
--- NOTE | 2022-05-24 13:06 | XRay Report ---
SINGLE VIEW CHEST CLINICAL HISTORY: Cough. FINDINGS: An AP, portable, upright chest radiograph is compared to study performed earlier the same d ay 05/24/2022 and correlated with chest CT dated 02/19/2022. The examination is degraded by portable zachary hnique and patient rotation. The cardiomediastinal silhouette is unremarkable noting atherosclerotic calcification of the thoracic aorta. Chronic interstitial thickening is similar to previous. There i s mild bibasilar scarring/atelectasis. No airspace consolidation or large pleural effusion is identif ied. No pneumothorax is seen. The skeletal structures are osteopenic. The bony thorax is grossly inta ct. Degenerative change and scoliosis is noted in the thoracic spine. IMPRESSION: No active disease in the chest. No change from today's earlier study. ACT 112: Negative or not required by law. Electronically signed by: Edil Tamez M.D. 05/24/2022 1:05 PM
[2022-05-24 13:38] LABS: D Dimer 490 ug/L FEU (0-500)
--- NOTE | 2022-05-24 15:01 | Electrocardiogram Report ---
Test Reason : Blood Pressure : / mmHG Vent. Rate : 080 BPM Atrial Rate : 080 BPM P-R Int : 210 ms QRS Dur : 080 ms QT Int : 410 ms P-R-T Axes : 067 006 046 degrees QTc Int : 472 ms Poor data quality, interpretation may be adversely affected Sinus rhythm with 1st degree A-V block Otherwise normal ECG When compared with ECG of 24-MAY-2022 07:33, (unconfirmed) Nonspecific T wave abnormality now evident in Inferior leads Confirmed by Landen Partida ([id number]) on 05/24/2022 3:00:55 PM Referred By: REFERRED SELF Confirmed By:Saúl Partida
--- NOTE | 2022-05-24 15:01 | Electrocardiogram Report ---
Test Reason : Blood Pressure : / mmHG Vent. Rate : 079 BPM Atrial Rate : 079 BPM P-R Int : 200 ms QRS Dur : 082 ms QT Int : 416 ms P-R-T Axes : 066 015 052 degrees QTc Int : 477 ms Poor data quality, interpretation may be adversely affected Normal sinus rhythm Normal ECG When compared with ECG of 24-MAY-2022 04:36, (unconfirmed) No significant change was found Confirmed by Landen Partida ([id number]) on 05/24/2022 3:01:27 PM Referred By: REFERRED SELF Confirmed By:Saúl Partida
--- NOTE | 2022-05-24 15:03 | Electrocardiogram Report ---
Test Reason : Blood Pressure : / mmHG Vent. Rate : 067 BPM Atrial Rate : 067 BPM P-R Int : 178 ms QRS Dur : 094 ms QT Int : 452 ms P-R-T Axes : 044 002 057 degrees QTc Int : 477 ms Poor data quality, interpretation may be adversely affected Normal sinus rhythm Normal ECG When compared with ECG of 15-MAR-2022 13:04, Nonspecific T wave abnormality, improved in Lateral leads Confirmed by Landen Partida ([id number]) on 05/24/2022 3:02:25 PM Referred By: REFERRED SELF Confirmed By:Saúl Partida
--- NOTE | 2022-05-24 16:34 | Cardiology Consultation ---
Date of Consultation May 24, 2022 Assessment & Plan (1) PAF (paroxysmal atrial fibrillation): (2) Nausea: (3) Weakness: (4) Pulmonary embolism: (5) UTI due to Klebsiella species: (6) COVID: (7) TIA (transient ischemic attack): Plan Given the very fleeting episode of atrial fibrillation and the fact that she is already on Eliquis for history of PE I would not recommend any changes at this time. Patient should be monitored on telemetry overnight to evaluate for any further episodes. May consider outpatient Zio patch monitor as well but given lack of symptoms and her concomitant need for ongoing anticoagulation would likely not loom changer. History of Present Illness Reason for Consultation: Brief atrial fibrillation Requesting Physician: Hannah hospitalist group Attending Physician: Danis Hampton MD History of Present Illness The patient is a 87-year-old woman who presented to [facility] on 05/24/2022 with complaints of increasing fatigue and weakness. In order to limit staff exposure to COVID-19 this consultation was done through review of medical records and discussion with the primary team. She was recently diagnosed with COVID-19 and pulmonary emboli. She has been started on Eliquis as an outpatient. Upon presentation to the emergency department she had a brief run of atrial fibrillation that was broken with IV metoprolol. The episode was so fleeting in nature that her twelve-lead was not able to be performed. No symptoms reported with this episode. Allergies Allergy/AdvReac Type Severity Reaction Status Date / Time morphine Allergy Severe STOPS Verified 02/19/22 16:07 BREATHING moxifloxacin Allergy Intermediate CONFUSION/NIGHT Verified 02/19/22 16:07 CRANE bacitracin Allergy Mild Rash Verified 02/19/22 16:07 polymyxin B Allergy Mild Rash Verified 02/19/22 16:07 tramadol Allergy Unknown CAN'T Verified 02/19/22 16:07 REMEMBER fluorouracil AdvReac Intermediate didn't Verified 02/19/22 16:07 feel good CHIRAG CREAM AdvReac Severe WENT Uncoded 02/19/22 16:07 BALISTIC Home Medications Medication Instructions Recorded Confirmed Type atenolol 25 mg tablet 12.5 mg PO DAILY 07/03/20 05/24/22 History aspirin 81 mg tablet,delayed 81 mg PO DAILY 12/11/21 05/24/22 History release atorvastatin 10 mg tablet 10 mg PO DAILY 12/24/21 05/24/22 History losartan 25 mg tablet 12.5 mg PO DAILY 02/19/22 05/24/22 History apixaban 5 mg tablet (Eliquis) 5 mg PO BID #74 tabs 02/20/22 05/24/22 Rx L.acidop,casei,lactis,rham-B.lact,katie 2 cap PO DAILY #14 caps 02/21/22 05/24/22 Rx 625 mg (10 billion cell) capsule (Advanced Probiotic) Patient History Medical History Acute UTI Asthma Encephalopathy, metabolic Exertional chest pain Factor V Leiden, prothrombin gene mutation Failure of outpatient treatment High blood pressure Hyperlipidemia Lab test negative for COVID-19 virus Left arm pain Nausea Nausea Precordial chest pain Syncope TIA (transient ischemic attack) Weakness Surgical History Hx of cholecystectomy S/P appy S/P cataract extraction S/P spinal surgery Family History Brother Lung cancer Father Lung cancer Sister Pancreatic cancer Social History Smoking Status: Never smoker Second Hand Exposure: No; Hx Alcohol Use: Yes Alcohol type: wine Alcohol Intake Frequency: Monthly or Less Hx Substance Use: No Preferred Language: Cym[place] Communication Ability: Effective Hub Bander Required: No Beliefs That Will Affect Care: None marital status: Current Living Situation: Spouse How many Children do You have: 5 Feels Safe at Home: Yes Assistive Devices: None Results & Data ([facility]) Vital Signs (Past 12 Hours) Vital Signs Pulse Pulse Resp BP BP Pulse Ox O2 Del Method 05/24/22 15:01 81 20 140/57 L 92 Room Air 05/24/22 13:00 78 18 139/106 H 98 Room Air 05/24/22 11:00 64 18 140/67 94 Room Air 05/24/22 09:00 69 18 117/61 92 Room Air 05/24/22 07:57 68 121/65 05/24/22 07:00 113 H 18 122/48 L 100 Nasal Cannula 05/24/22 07:06 130 H 122/48 L 05/24/22 06:30 118 H 20 93 05/24/22 06:25 127 H 22 98 05/24/22 05:50 121 H 21 94 05/24/22 05:40 145 H 20 97 05/24/22 05:30 69 22 95 05/24/22 05:30 120/54 L 05/24/22 05:20 67 14 97 05/24/22 05:10 67 20 97 05/24/22 05:00 68 19 94 05/24/22 05:00 124/57 L 05/24/22 04:50 63 18 97 05/24/22 04:40 68 19 97 O2 Flow Rate 05/24/22 15:01 05/24/22 13:00 05/24/22 11:00 05/24/22 09:00 05/24/22 07:57 05/24/22 07:00 3 05/24/22 07:06 05/24/22 06:30 05/24/22 06:25 05/24/22 05:50 05/24/22 05:40 05/24/22 05:30 05/24/22 05:30 05/24/22 05:20 05/24/22 05:10 05/24/22 05:00 05/24/22 05:00 05/24/22 04:50 05/24/22 04:40 (1) Pulmonary embolism Acute cor pulmonale presence: unspecified Chronicity: unspecified Pulmonary embolism type: unspecified Qualified Code(s): I26.99 - Other pulmonary embolism without acute cor pulmonale
[2022-05-24] MEDS: APIXABAN 5 MG TABLET PO SCH (21:49)
[2022-05-25] MEDS: SODIUM CHLORIDE 0.9% 1000ML 1,000 ML IV SCH (04:13)
[2022-05-25 07:38] LABS: Hemoglobin 10.2 g/dl (12.0-16.0); Mean Corpuscular Hemoglobin 28.9 pg (25.0-34.0); Mean Corpuscular Hgb Conc 32.9 g/dL (32.0-36.0); Mean Corpuscular Volume 87.8 fL (80.0-100.0); Mean Platelet Volume 10.1 fL (9.4-12.3); Platelet Count 189 K/uL (130-400); RDW Standard Deviation 44.8 fL (36.4-46.3); Red Blood Count 3.53 M/uL (3.93-5.22); White Blood Count 4.68 K/ul (4.8-10.8)
[2022-05-25 07:59] LABS: Calcium 7.8 mg/dl (8.5-10.1); Potassium 3.4 mmol/L (3.5-5.1)
[2022-05-25 08:05] LABS: BUN Creatinine Ratio 7.1 (10-20); Creatinine Clr Calc Pharmacy 43.1 ml/min; Est GFR (Non-African American) 76.8 ml/min
[2022-05-25] MEDS: APIXABAN 5 MG TABLET PO SCH (08:09)
[2022-05-25] MEDS ORDERED: LOSARTAN POTASSIUM 25 MG TAB PO SCH (09:00)
[2022-05-25] MEDS ORDERED: ATENOLOL 25 MG TABLET PO SCH (09:00)
[2022-05-25] MEDS ORDERED: ATORVASTATIN 10 MG TAB PO SCH (09:00)
[2022-05-25] MEDS ORDERED: ASPIRIN 81 MG ECTAB PO SCH (09:00)
[2022-05-25] MEDS ORDERED: ADVANCED PROBIOTIC 1250 MG CAPSULE PO SCH (09:00)
--- NOTE | 2022-05-25 14:18 | Discharge Summary ---
Date of Service May 25, 2022 Admission HPI Per Admitting Provider Ms. Arce is an 87 year old female who presented to [facility] ED with her daughter Lacy this morning for increased generalized weakness and 'just not feeling well', along with feeling nauseated. Additional PMH includes: PE, HTN, HLD, Asthma, Factor V Leiden, recurrent UTIs. The patient just had covid-19 and tested positive 13 days ago. She had a recent admission February 19-02/20 where she was diagnosed with new onset [place] Fibrillation and PE for which she was started on Eloquis. Pt was noted to be in NSR on arrival via ECG; however, did go into Afib, received one dose of Metoprolol and then returned to NSR (Afib was not captured on ECG). Her last ECHO was September 2020 with an EF of 64%. Patient denies BECKETT,dizziness, SOB, CP, palpitations, appetite changes, diarrhea, night sweats, chills. Typically, patient is able to perform her ADL's independently. No leukocytosis noted in ED. Patient is lying in her hospital bed in no apparent distress, able to hold full conversation without use of accessory muscles. Patient is AAOx3 and follows commands appropriately. She reports that she lives with her , Delvis, and her two daughters do frequent check ins. Patient will be admitted to med/surg telemetry for further evaluation and management. Please see A/P for further details. Admission Exam Per Admitting Provider Neuro: AAOx3, some confusion, PERRLA, no aphagia, memory changes, CNII-XII grossly intact HEENT: head normocephalic, moist mucus membranes CV: S1/S2, (-) M/G/R, (-) edema, cap refill < 3 seconds Resp: Lungs CTA in all garcia. On RA GI: Abdomen S/NT/ND, Ax4 bowel sounds, (-) CVA tenderness Musculoskeletal: 5/5 B/L UE strength, 5/5 B/L LE strength. No gait disturbance Skin: (-) rashes , (-) erythema. Psych: euthymic mood Principal Diagnosis (1) New onset Atrial fibrilaltion (2) Nausea/Weakness: (3) Hx of Pulmonary embolism: (4) High blood pressure: (5) Hyperlipidemia: (6) Factor V Leiden, prothrombin gene mutation: Discharge Exam Constitutional: Alert, oriented x3 Respiratory: normal respiratory effort, lungs clear to auscultation, no wheeze, rales, rhonchi. Normal insp/exp effort, no accessory muscle use Cardiovascular: RRR, no murmur, no edema Vessels: no JVD or carotid bruit Chest: normal inspection of chest Abdomen: normal bowel sounds, soft, nontender, no hepatosplenomegaly Musculoskeletal: no cyanosis or clubbing, extremities motor strength 5/5 Skin: no rashes, warm and dry normal turgor Neurologic: PERRL, EOMI, accommodation nl, no face palsy, no dysarthria CN's II- XI intact bilaterally and moves all extremities Psychiatric: A+Ox3, euthymic affect Lymphatic: no cervical or axillary lymphadenopathy : deferred Discharge Data Allergies Allergy/AdvReac Type Severity Reaction Status Date / Time morphine Allergy Severe STOPS Verified 02/19/22 16:07 BREATHING moxifloxacin Allergy Intermediate CONFUSION/NIGHT Verified 02/19/22 16:07 CRANE bacitracin Allergy Mild Rash Verified 02/19/22 16:07 polymyxin B Allergy Mild Rash Verified 02/19/22 16:07 tramadol Allergy Unknown CAN'T Verified 02/19/22 16:07 REMEMBER fluorouracil AdvReac Intermediate didn't Verified 02/19/22 16:07 feel good CHIRAG CREAM AdvReac Severe WENT Uncoded 02/19/22 16:07 BALISTIC Consultations 05/24/22 06:44 ED Decision to Admit Stat 05/24/22 10:44 Consult Cardiology Routine Ordered Studies 05/24/22 05:40 CT Abd and Pelvis [CT abd pelvis IV con only] Stat Hospital Course (1) PAF (paroxysmal atrial fibrillation): (2) COVID: (3) Nausea: (4) Weakness: (5) Pulmonary embolism: Plan Patient is 87-year-old female with past medical history of recent PE, hypertension who presented to the ED with complaint of increased generalized weakness and nausea. On presentation to the ED, patient was afebrile, normotensive and was saturating well on room air. She had episode of atrial fibrillation lasting 2 hours in the ED on telemetry. She was also found to have COVID-19 positive on rapid antigen test. Patient was admitted to telemetry floor for further evaluation. Cardiology was consulted; recommended to continue on Eliquis and have outpatient follow-up for possible Zio patch. Patient's nausea and vomiting resolved overnight. She did not have any episode of atrial fibrillation overnight. Patient was discharged back home with her . Patient has good family support with her 3 daughters living near the area. Patient does not want to go to any rehab. Patient was asked to follow-up with her primary care doctor. Total Time Total Time Spent Total Time Spent (In Minutes): 35 Total Time Includes: Examination of the Patient, Discharge Planning, Medication Reconciliation, Communication With Other Providers and Other Discharge Plan Discharge Items Patient Disposition: Home - Home Health Services Reason For Visit: NAUSEA AND VOMITING Discharge Diagnosis: 1) New onset Atrial Fibrillation 2) Hx of recent PE 3) Hypertension 4) Hyperlipidemia Activity: Resume your previous activity Non-emergency contact: Primary Care Provider Call non-emergency contact if: you have any medication questions Follow-up/Referrals: Gucci Benjamin MD [Primary Care Provider] - Diet: Regular Addtl Attending Provider Instructions: During the hospitalization, you were found to have an episode of irregular heart rhythm called atrial fibrillation. Please continue to take blood thinner ( Eliquis) twice daily. We will have cardiology follow-up as outpatient. Please continue to take all your medication as prescribed. Please follow-up with your primary care doctor in 1 week. Pending Studies at Discharge: No Stand-Alone Forms: My [facility] [employer], Smoking Cessation Medications and DC Order Prescriptions: Continued atenolol 25 mg Tablet 12.5 mg PO DAILY atorvastatin 10 mg tablet 10 mg PO DAILY aspirin 81 mg Tablet,Delayed Release (Dr/Ec) 81 mg PO DAILY losartan 25 mg tablet 12.5 mg PO DAILY Rx Instructions: PER PT'S DAUGHTER "TAKES 12.5 MG, PER EXT MED HX--25 MG DAILY". Eliquis 5 mg tablet 5 mg PO BID Qty: 74 0RF Rx Instructions: 10 mg by mouth twice a day for 7 days, then 5 mg by mouth twice a day afterwards Advanced Probiotic 625 mg (10 billion cell) Capsule 2 cap PO DAILY Qty: 14 0RF Discharge Orders: Discharge Order (Routine); Ordered 05/25/22 Ordered By: Barrie Sauer Admission Data Admit Date/Time: 05/24/22 08:42 Attending Provider: Barrie Sauer Admit Provider: Danis Hampton Primary Care Provider: Gucci Benjamin Other Providers: Steve Gay ; Jer Howe ; [facility] Other Interventions: Discharge Summary Assessment (RN) Last Done: 05/25/22 12:58
--- NOTE | 2022-05-25 14:25 | Discharge Summary ---
Date of Service May 25, 2022 Admission HPI Per Admitting Provider Ms. Arce is an 87 year old female who presented to [facility] ED with her daughter Lacy this morning for increased generalized weakness and 'just not feeling well', along with feeling nauseated. Additional PMH includes: PE, HTN, HLD, Asthma, Factor V Leiden, recurrent UTIs. The patient just had covid-19 and tested positive 13 days ago. She had a recent admission February 19-02/20 where she was diagnosed with new onset [place] Fibrillation and PE for which she was started on Eloquis. Pt was noted to be in NSR on arrival via ECG; however, did go into Afib, received one dose of Metoprolol and then returned to NSR (Afib was not captured on ECG). Her last ECHO was September 2020 with an EF of 64%. Patient denies BECKETT,dizziness, SOB, CP, palpitations, appetite changes, diarrhea, night sweats, chills. Typically, patient is able to perform her ADL's independently. No leukocytosis noted in ED. Patient is lying in her hospital bed in no apparent distress, able to hold full conversation without use of accessory muscles. Patient is AAOx3 and follows commands appropriately. She reports that she lives with her , Delvis, and her two daughters do frequent check ins. Patient will be admitted to med/surg telemetry for further evaluation and management. Please see A/P for further details Admission Exam Per Admitting Provider Neuro: AAOx3, some confusion, PERRLA, no aphagia, memory changes, CNII-XII grossly intact HEENT: head normocephalic, moist mucus membranes CV: S1/S2, (-) M/G/R, (-) edema, cap refill < 3 seconds Resp: Lungs CTA in all garcia. On RA GI: Abdomen S/NT/ND, Ax4 bowel sounds, (-) CVA tenderness Musculoskeletal: 5/5 B/L UE strength, 5/5 B/L LE strength. No gait disturbance Skin: (-) rashes , (-) erythema. Psych: euthymic mood Principal Diagnosis (1) Paroxysmal A. fib (2) Covid 19 positive (3) Pulmonary embolism: (4) High blood pressure: (5) Hyperlipidemia: (6) Factor V Leiden, prothrombin gene mutation Discharge Exam Constitutional: WD/WN, vitals as above, NAD, sitting up in bed, pleasant, conversing easily Respiratory: normal respiratory effort, lungs clear to auscultation, no wheeze, rales, rhonchi. Normal insp/exp effort, no accessory muscle use Cardiovascular: RRR, no murmur, no edema Vessels: no JVD or carotid bruit Chest: normal inspection of chest Abdomen: normal bowel sounds, soft, nontender, no hepatosplenomegaly Musculoskeletal: no cyanosis or clubbing, extremities motor strength 5/5 Skin: no rashes, warm and dry normal turgor Neurologic: PERRL, EOMI, accommodation nl, no face palsy, no dysarthria CN's II- XI intact bilaterally and moves all extremities Psychiatric: A+Ox3, euthymic affect Lymphatic: no cervical or axillary lymphadenopathy : deferred Discharge Data Allergies Allergy/AdvReac Type Severity Reaction Status Date / Time morphine Allergy Severe STOPS Verified 02/19/22 16:07 BREATHING moxifloxacin Allergy Intermediate CONFUSION/NIGHT Verified 02/19/22 16:07 CRANE bacitracin Allergy Mild Rash Verified 02/19/22 16:07 polymyxin B Allergy Mild Rash Verified 02/19/22 16:07 tramadol Allergy Unknown CAN'T Verified 02/19/22 16:07 REMEMBER fluorouracil AdvReac Intermediate didn't Verified 02/19/22 16:07 feel good CHIRAG CREAM AdvReac Severe WENT Uncoded 02/19/22 16:07 BALISTIC Consultations 05/24/22 06:44 ED Decision to Admit Stat 05/24/22 10:44 Consult Cardiology Routine Ordered Studies 05/24/22 05:40 CT Abd and Pelvis [CT abd pelvis IV con only] Stat Hospital Course (1) PAF (paroxysmal atrial fibrillation): (2) COVID: (3) Nausea: (4) Weakness: (5) Pulmonary embolism: Plan Patient is a 87-year-old female with history of recent PE on Eliquis, hypertension presented to the hospital with feeling of nausea, vomiting and generalized weakness. On arrival to the ED, patient was afebrile, normotensive and saturating well on room air. She had a 2-hour episode of atrial fibrillation with rapid ventricular rate on telemetry during her ED stay for which she was given IV metoprolol. Patient was also found to have COVID-19 infection on rapid antigen test. Patient was admitted to telemetry floor for further monitoring. Cardiology was consulted. Cardiology recommended to continue Eliquis and consider Zio patch as outpatient. Patient did not have any other episode of atrial fibrillation during her stay in the hospital. She was discharged home with recommendation to follow-up with PCP and cardiology. Patient has good support system with 3 daughters living in the area. She did not want any placement to rehab. Patient's nausea vomiting and weakness had resolved on the day of the discharge. Code 44 protocol followed. Total Time Total Time Spent Total Time Spent (In Minutes): 35 Total Time Includes: Examination of the Patient, Discharge Planning, Medication Reconciliation, Communication With Other Providers and Other Discharge Plan Discharge Items Patient Disposition: Home - Home Health Services Reason For Visit: NAUSEA AND VOMITING Discharge Diagnosis: 1) New onset Atrial Fibrillation 2) Hx of recent PE 3) Hypertension 4) Hyperlipidemia Activity: Resume your previous activity Non-emergency contact: Primary Care Provider Call non-emergency contact if: you have any medication questions Follow-up/Referrals: Gucci Benjamin MD [Primary Care Provider] - Diet: Regular Addtl Attending Provider Instructions: During the hospitalization, you were found to have an episode of irregular heart rhythm called atrial fibrillation. Please continue to take blood thinner ( Eliquis) twice daily. We will have cardiology follow-up as outpatient. Please continue to take all your medication as prescribed. Please follow-up with your primary care doctor in 1 week. Pending Studies at Discharge: No Stand-Alone Forms: My [employer], Smoking Cessation Medications and DC Order Prescriptions: Continued atenolol 25 mg Tablet 12.5 mg PO DAILY atorvastatin 10 mg tablet 10 mg PO DAILY aspirin 81 mg Tablet,Delayed Release (Dr/Ec) 81 mg PO DAILY losartan 25 mg tablet 12.5 mg PO DAILY Rx Instructions: PER PT'S DAUGHTER "TAKES 12.5 MG, PER EXT MED HX--25 MG DAILY". Eliquis 5 mg tablet 5 mg PO BID Qty: 74 0RF Rx Instructions: 10 mg by mouth twice a day for 7 days, then 5 mg by mouth twice a day afterwards Advanced Probiotic 625 mg (10 billion cell) Capsule 2 cap PO DAILY Qty: 14 0RF Discharge Orders: Discharge Order (Routine); Ordered 05/25/22 Ordered By: Barrie Sauer Admission Data Admit Date/Time: 05/24/22 08:42 Attending Provider: Barrie Sauer Admit Provider: Danis Hampton Primary Care Provider: Gucci Benjamin Other Providers: Steve Gay ; Jer Howe ; [facility],Home Health Other Interventions: Discharge Summary Assessment (RN) Last Done: 05/25/22 12:58
--- NOTE | 2022-05-25 16:01 | Communication Note ---
Date of Service: May 25, 2022 Code 44 attestation: She is an 87-year-old female was admitted with paroxysmal atrial fibrillation with history of pulmonary embolism. She was appropriately evaluated by the education reporter and admitting physician. She remained stable to be discharged home today. Her chart, imaging studies and labs were reviewed. By CMS guidelines, a determination that the admission or continued stay is not medically necessary has been made by a member of the UR committee and a physician for this hospital stay, therefore a Code 44 will be completed and the Inpatient admission will be changed to outpatient. Dr Kristi Howe Member UR Committee
== END 2022-05-25 13:58 | disposition home health service (06) | DRG 177 ==
LOC: ED 03:56 → SUATTDRO 08:42 → INTOOBSV 08:42 → OBSVTOIN 08:42 → EDINP 08:42 → 2N 12:20